=== PATIENT | female | born 1955 | race Caucasian/White ===

== ENCOUNTER → 2016-05-09 09:15 | Outpatient (CLI) | payer MEDICAID ==
[2016-02-22 14:37] VITALS: BMI 36.6
[~2016-05-09 09:15] MED LIST: ABILIFY2 MG PO; ELAVIL25 MG PO; GLUCOPHAGE500 MG PO; K-TAB10 MEQ OR; LASIX40 MG PO; LISINOPRIL5 MG PO; NORCO 10/325 TA1 TA1 PO; PRILOSEC20 MG PO; SEROQUEL25 MG; TRAZODONE HCL300 MG PO; ZOLOFT100 MG PO
[2016-05-09 12:56] LABS: APPEARANCE CLOUDY (CLEAR); BACTERIA MANY /hpf (NONE SEEN); BILIRUBIN NEGATIVE (NEGATIVE); COLOR YELLOW (YELLOW); EPITHELIAL CELLS 0-5 /hpf (0-5); GLUCOSE NEGATIVE (NEGATIVE); KETONE NEGATIVE (NEGATIVE); LEUKOCYTE ESTERASE 2+ (NEGATIVE); MUCUS <1+ /lpf (NONE SEEN); NITRITE POSITIVE (NEGATIVE); PROTEIN NEGATIVE (NEGATIVE); RED CELLS - URINE RARE /hpf (0-5); UROBILINOGEN NORMAL (NORMAL)
== END | disposition home or self-care (01) ==
LOC: D.OPS 05-08 16:00 → D.LABREF 09:15
PROVIDERS: General Practice
DX: N39.0 Urinary tract infection, site not specified (principal)

== ENCOUNTER 2016-05-18 07:46 | Outpatient (CLI) | payer MEDICAID ==
[2016-05-17 11:42] LABS: APPEARANCE HAZY (CLEAR); BACTERIA MANY /hpf (NONE SEEN); BILIRUBIN NEGATIVE (NEGATIVE); COLOR YELLOW (YELLOW); EPITHELIAL CELLS 0-5 /hpf (0-5); GLUCOSE NEGATIVE (NEGATIVE); KETONE NEGATIVE (NEGATIVE); LEUKOCYTE ESTERASE TRACE (NEGATIVE); MUCUS <1+ /lpf (NONE SEEN); NITRITE NEGATIVE (NEGATIVE); PROTEIN NEGATIVE (NEGATIVE); SPECIFIC GRAVITY 1.005 (1.005-1.020); UROBILINOGEN NORMAL (NORMAL); WHITE CELLS - URINE OCC /hpf (0-5)
[~2016-05-18] VITALS: Ht 157.5 cm; Wt 89.1 kg
[2016-05-18 08:32] VITALS: BP 147/67; Ht 157.5 cm; Wt 89.1 kg
--- NOTE | 2016-05-18 08:43 | NUR ---
0820 PATIENT IS HERE FOR IN AND OUT CATH. DONE WITH STERILE PROCEDURE AND SPECIUM SENT TO LAB FOR UA AND CULTURE. 839 PATIENT DISCHARGED HOME WITH INSTRUCTIONS TO CHECK WITH DR. CASTILLO LATER TO CONFIRM PROCEDURE FOR SATURDAY. NO DISTRESS UPON DISCHARGE NOTED.
[2016-05-18 10:34] LABS: APPEARANCE CLEAR (CLEAR); BILIRUBIN NEGATIVE (NEGATIVE); COLOR STRAW (YELLOW); GLUCOSE NEGATIVE (NEGATIVE); KETONE NEGATIVE (NEGATIVE); LEUKOCYTE ESTERASE NEGATIVE (NEGATIVE); NITRITE NEGATIVE (NEGATIVE); PROTEIN NEGATIVE (NEGATIVE); SPECIFIC GRAVITY 1.005 (1.005-1.020); UROBILINOGEN NORMAL (NORMAL)
== END 2016-05-18 08:40 ==
LOC: D.OPS 07:46
PROVIDERS: General Practice
DX: N39.0 Urinary tract infection, site not specified (principal)

== ENCOUNTER 2016-05-22 08:49 | Outpatient (CLI) | payer MEDICAID ==
[~2016-05-22] VITALS: Ht 157.5 cm; Wt 90.0 kg
--- NOTE | ~2016-05-22 | HEMODYNAMI ---
PATIENT:RUFINA HERNANDEZ MEDICAL RECORD: [id number] : 59 LOCATION:[facility] ADMISSION DATE: 05/22/16 Generatedon:05/22/201613:46 Patient name: RUFINA HERNANDEZ Patient #: [id number] SSN: : 1955 Date of study: 05/22/2016 Page: Of Hemodynamic Procedure Report Patient Data Patient Demographics Procedure consent was obtained First Name: RUFINA Gender: Female Last Name: DAVID : 1955 Middle Initial: DEONDRE Age: 61 year(s) Patient #: [id number] Race: Unknown Additional ID: [id number] Contact details Address: [address] [place] [address] State: [place] City: [place] Zip code: [address] Past Medical History Allergies Allergen Reaction Date Comments Reported Morphine 05/22/2016 Penicillins 05/22/2016 Toradol 05/22/2016 Admission Admission Data Admission Date: 05/22/2016 Admission Time: 8:49 Procedure Procedure Types Cath Procedure Peripheral Cath Diagnostic Procedure Cath Peripheral Kyphoplasty Kyphoplasty Lumbar Procedure Description Procedure Date Procedure Date: 05/22/2016 Procedure Start Time: 11:57 Procedure Staff Name Function Bernice Baumann RN Nurse Cleo López RT Cable Reeler Cleo López RT Monitor Mirna Finch RT Scrub Jabier Smallwood MD Performing Physician Procedure Data Cath Procedure Fluoroscopy Diagnostic fluoroscopy Total fluoroscopy Time: time: 11.8 min 11.8 min Diagnostic fluoroscopy Total fluoroscopy dose: dose: 519.18 mGy 519.18 mGy Procedure Medications Medication Administration Route Dosage Vancomycin I.V.P.B 1 g Hemodynamics Rest Heart Rate: 74 (bpm) Snapshots Pre Cath Intra NCS Post Cath Vital Signs Time Heart Resp SPO2 NIBP (mmHg) Rhythm Pain Sedation Rate (ipm) (%) Status Level (bpm) 11:24:26 93 136/66(99) NSR 0 (11) 10(A) , No pain 11:28:44 95 143/60(109) NSR 0 (11) 10(A) , No pain 11:34:10 96 156/68(138) NSR 0 (11) 10(A) , No pain 11:39:36 82 5 96 159/73(121) NSR 0 (11) 10(A) , No pain 11:44:00 74 19 98 149/53(91) NSR 0 (11) 10(A) , No pain 11:48:22 71 18 98 133/56(96) NSR 0 (11) 10(A) , No pain 11:52:42 76 17 98 129/53(89) NSR 0 (11) 10(A) , No pain 11:56:56 72 15 98 116/51(75) NSR 0 (11) 10(A) , No pain 12:01:16 70 9 98 112/44(73) NSR 0 (11) 10(A) , No pain 12:05:28 77 6 98 114/60(87) NSR 0 (11) 10(A) , No pain 12:09:34 73 16 98 109/58(83) NSR 0 (11) 10(A) , No pain 12:13:48 72 17 98 119/51(87) NSR 0 (11) 10(A) , No pain 12:18:06 73 17 98 119/52(84) NSR 0 (11) 10(A) , No pain 12:22:22 70 18 98 118/55(74) NSR 0 (11) 10(A) , No pain 12:26:36 70 16 98 115/55(77) NSR 0 (11) 10(A) , No pain 12:30:52 71 16 98 117/53(90) NSR 0 (11) 10(A) , No pain 12:35:06 15 98 133/63(81) NSR 0 (11) 10(A) , No pain 12:39:22 71 17 98 131/63(90) NSR 0 (11) 10(A) , No pain 12:43:42 77 18 98 135/59(90) NSR 0 (11) 10(A) , No pain 12:48:15 75 19 98 59/29(47) NSR 0 (11) 10(A) , No pain 12:53:02 76 17 98 129/65(85) NSR 0 (11) 10(A) , No pain 12:57:21 71 16 98 134/59(98) NSR 0 (11) 10(A) , No pain 13:01:42 73 18 97 126/63(96) NSR 0 (11) 10(A) , No pain 13:05:58 76 15 98 140/64(87) NSR 0 (11) 10(A) , No pain 13:10:18 76 26 98 128/58(106) NSR 0 (11) 10(A) , No pain 13:14:36 74 15 98 135/65(96) NSR 0 (11) 10(A) , No pain 13:17:44 78 26 90 140/65(99) NSR 0 (11) 10(A) , No pain Medications Time Medication Route Dose Verified Delivered Reason Notes Eff ectiveness by by 11:40:54 Vancomycin I.V.P.B 1 g per anesthesia prophylactic anesthesia Procedure Log Time Note 11:04:15 Time tracking: Regular hours 11:04:33 Use device set IR Diagnostic 11:04:35 Sterile Angiographic Pack opened to sterile field. 11:04:36 Bag Decanter opened to sterile field. 11:04:55 Plan of Care:Hemodynamics will remain stable., Cardiac rhythm will remain stable., Comfort level will be maintained., Respiratory function will remain adequate., Patient/ family verbilizes understanding of procedure., Procedure tolerated without complication., Recovers from procedure without complications.. 11:05:02 Patient received from Outpatients to IR Alert and oriented. 11:05:08 Correct patient and procedure confirmed by team. 11:05:15 Signed procedure consent form obtained from patient. 11:05:16 - 11:05:23 H&P Date Dictated: 05/22/2016 Within 30 days and on chart.. 11:05:25 Pre-op teaching completed and patient verbalized understanding. 11:05:25 Pre-procedure instructions explained to patient. 11:05:27 Family in waiting room. 11:05:29 Patient NPO since Midnight. 11:05:33 Is the patient allergic to Iodine/contrast media? No. 11:05:35 Is patient on blood thinner?No 11:05:38 Patient diabetic? No. 11::40 ----Pre-sedation anethsthesia assessment.---- 11:05:40 - 11:05:44 Previous problem with sedation/anesthesia? No ? 11:05:48 Snore? Yes 11:05:53 Sleep apnea? No 11:06:01 Deviated septum? No 11:06:06 Opens mouth fully? Yes 11:06:07 Sticks out tongue? Yes 11:06:12 Airway obstruction? Yes copd 11:06:20 Dentures? Yes secured 11:06:34 IV patent on arrival in right forearm with 0.9% NaCl at [facility]. 11:06:57 Patient allergic to Morphine 11:07:08 Patient allergic to Penicillins 11:07:24 Patient allergic to Toradol 11:08:20 Lumbar area was prepped with dura-prep and draped in sterile fashion 11:08:28 Thoracic area was prepped with dura-prep and draped in sterile fashion 11:10:12 See anesthesia records for all vs, loc, O2 and medications given . 11:22:03 Vital chart was started 11:31:45 Dr Smallwood in. Talking with patient. 11:40:37 Anesthesia arrived. Talking with patient for assessment. 11:40:54 Vancomycin 1 g I.V.P.B was given by anesthesia; prophylactic; 11:41:07 Kyphon INTRO NEEDLE TROCAR opened to sterile field. 11:41:08 Kyphon BONE BX DEVICE SZ2 opened to sterile field. 11:41:09 Kyphon EDUCATION PROFESSIONAL KIT opened to sterile field. 11:41:11 KYPHON LIAT EXPRESS 15/2 CDS SYSTEM opened to sterile field. 11:44:37 Patient transferred to table and manuela hugger initiated. Warm blankets applied. 11:45:23 ECG and BP/O2 sat monitors applied to patient. 11:45:24 Baseline sample Acquired. 11:45:26 Full Disclosure recording started 11:45:27 - :45:56 Alarms reviewed by Bobby Mills :57 Sharps counted by scrub and verified by Chelly 11:45:58 - 11:53:51 Physician arrived 11:54:41 Physical assessment completed. ASA score P 4 - A patient with severe systemic disease that is a constant threat to life as per Jabier Smallwood MD. 11:54:47 Sedation plan: TIVA Propofol 11:55:00 --------ALL STOP TIME OUT------ 11:55:01 Final Timeout: patient, procedure, and site verified with staff and physician. All members of the team are in agreement. 11:57:07 Procedure started. 12:01:34 Jamshidi needle introduced. 12:12:15 Bone bx needle placed. 12:21:17 Kyphoplasty balloon introduced. 12:57:43 Cement introduced to vertebral body. 13:12:06 Procedure ended.(Physican Out) 13:18:29 Fluoroscopy time 11.80 minutes. 13:18:36 Fluoroscopy dose: 519.18 mGy 13:18:36 Flurop Dose total: 519.18 13:18:43 Sharps counted by scrub and verified by Chelly 13:18:45 Procedure and supply charges have been captured, reviewed, submitted an d are correct. 13:18:56 End room use (Document Last) 13:21:36 Vital chart was stopped 13:21:40 Full Disclosure recording stopped Device Usage Item Name Manufacture Quantity Catalog Hospital Part Current [facility] l Lot# / Number Charge Number Stock Stock Serial# Code Sterile Cardinal 1 [id number] 5 Angiographic Health Pack Bag Decanter Microtek 1 [id number] 5 [employer] Kyphon INTRO Medtronic 1 [id number] [id number] 5 NEEDLE TROCAR Kyphon BONE Medtronic 1 [id number] 259406 [id number] 5 BX DEVICE SZ2 Kyphon Medtronic 1 [id number] [id number] 5 EDUCATION PROFESSIONAL KIT KYPHON LIAT Medtronic 1 [id number] [id number] 5 EXPRESS 16/05 CDS SYSTEM Signature Audit Hagerman Stage Time Signature Unsigned Intra-Procedure 05/22/2016 Cleo Gilbert RT 1:21:33 PM RT(R) (R) (CV) 05/22/2016 1:44:18 PM Intra-Procedure 05/22/2016 Cleo López 1:46:56 PM RT(R) Signatures Monitor : Cleo López RT Signature : Date : Time : [id number] [place] [address]
[2016-05-22 10:52] VITALS: BP 121/53; Ht 157.5 cm; Wt 90.0 kg
[2016-05-22 10:55] LABS: BASOPHILS 0.4 % (0.0-2.0); EOSINOPHILS 1.1 % (0-7); HEMATOCRIT 41.8 % (36.0-48.0); IMMATURE GRANULOCYTES 0.4 % (0-5); LYMPHOCYTES 30.2 % (15-50); MCH 28.6 pg (26.0-34.0); MCHC 33.5 g/dL (31.0-37.0); MCV 85.5 fL (80.0-100.0); MEAN PLATELET VOLUME 8.8 fL (7.4-10.4); MONOCYTES 5.3 % (2-11); NEUTROPHILS 62.6 % (40-80); PLATELET COUNT 279 10x3/uL (130-400); RBC 4.89 10x6/uL (4.00-5.40); RDW 14.3 % (11.5-14.5); WBC 11.3 10x3/uL (4.8-10.8)
[2016-05-22 11:08] LABS: CALC OSMOLALITY 278 mosm/kg (275-300); CALCIUM 9.1 mg/dL (8.5-10.1); CHLORIDE - SERUM 101 mmol/L (98-107); CREATININE - SERUM 0.5 mg/dL (0.6-1.3); GLUCOSE 82 mg/dL (74-106); POTASSIUM - SERUM 3.6 mmol/L (3.5-5.1); SODIUM 141 mmol/L (136-145); UREA NITROGEN 10 mg/dL (7-18); eGFR NON AFRICAN AMERICAN > 90 mL/min (90-120)
[2016-05-22 11:09] LABS: APTT 29.9 SECONDS (22.8-39.4); INR 1.02 (0.85-1.17); PROTIME 13.3 SECONDS (11.6-15.0)
== END 2016-05-22 16:05 | disposition home or self-care (01) ==
LOC: D.OPS 08:49 → D.SP 11:30 → D.OPS 11:30
PROVIDERS: General Practice
DX: S22.088A Other fracture of T11-T12 vertebra, initial encounter for closed fracture (principal); S32.028A Other fracture of second lumbar vertebra, initial encounter for closed fracture

== ENCOUNTER → 2016-07-31 16:59 | Outpatient (CLI) | payer MEDICAID ==
[2016-05-22 10:52] VITALS: BMI 36.3
== END | disposition home or self-care (01) ==
LOC: D.MAMMO 13:00
DX: Z12.31 Encounter for screening mammogram for malignant neoplasm of breast (principal)

== ENCOUNTER → 2017-02-06 10:34 | Outpatient (CLI) | payer MEDICAID ==
[2016-05-22 10:52] VITALS: BMI 36.3
[2017-02-06 11:16] LABS: BASOPHILS 0.2 % (0-2); EOSINOPHILS 0.8 % (0-7); HEMATOCRIT 45.4 % (36.0-48.0); HEMOGLOBIN 15.5 g/dL (12-16); IMMATURE GRANULOCYTES 0.6 % (0-5); LYMPHOCYTES 25.1 % (15-50); MCH 30.3 pg (26.0-34.0); MCHC 34.1 g/dL (31.0-37.0); MCV 88.8 fL (80.0-100.0); MEAN PLATELET VOLUME 8.9 fL (7.4-10.4); MONOCYTES 5.5 % (2-11); NEUTROPHILS 67.8 % (40-80); PLATELET COUNT 238 10x3/uL (130-400); RBC 5.11 10x6/uL (4.00-5.40); RDW 13.9 % (11.5-14.5); WBC 10.8 10x3/uL (4.8-10.8)
[2017-02-06 11:29] LABS: ANION GAP 14.5 mmol/L (8-16); CALCIUM 9.2 mg/dL (8.5-10.1); CARBON DIOXIDE 26.2 mmol/L (21.0-32.0); CREATININE - SERUM 0.9 mg/dL (0.6-1.3); POTASSIUM - SERUM 3.7 mmol/L (3.5-5.1)
[2017-02-06 12:06] LABS: APPEARANCE CLEAR (CLEAR); BILIRUBIN NEGATIVE (NEGATIVE); COLOR YELLOW (YELLOW); GLUCOSE NEGATIVE (NEGATIVE); KETONE NEGATIVE (NEGATIVE); NITRITE NEGATIVE (NEGATIVE); PROTEIN NEGATIVE (NEGATIVE); UROBILINOGEN NORMAL (NORMAL)
[2017-02-06 12:07] LABS: BACTERIA MANY /hpf (NONE SEEN); EPITHELIAL CELLS OCC /hpf (0-5); MUCUS <1+ /lpf (NONE SEEN); RED CELLS - URINE RARE /hpf (0-5); WHITE CELLS - URINE 0-5 /hpf (0-5)
== END | disposition home or self-care (01) ==
LOC: D.LABREF 10:34 → D.LAB 10:34
DX: R35.0 Frequency of micturition (principal); N32.81 Overactive bladder

== ENCOUNTER 2018-01-17 06:11 | Day surgery (SDC) | payer MEDICAID ==
[~2018-01-17] VITALS: Ht 157.5 cm; Wt 87.1 kg
--- NOTE | ~2018-01-17 | OP ---
PATIENT NAME: RUFINA HERNANDEZ MEDICAL RECORD: [id number] :59 [facility] DATE: SURGEON: FARSHAD JAQUEZ MD DATE OF OPERATION: 01/17/2018 PREOPERATIVE DIAGNOSIS: Possible right base of tongue lesion. POSTOPERATIVE DIAGNOSIS: Possible right base of tongue lesion. PROCEDURE: Direct laryngoscopy and biopsy of the right base of the tongue. SURGEON: Farshda Jaquez MD ANESTHESIA: General orotracheal. BLOOD LOSS: Less than 5 cc. SPECIMENS: Multiple biopsies of the right base of tongue. COMPLICATIONS: None. DISPOSITION: Recovery stable. FINDINGS: A little bit of a friable area at the right base of the tongue adjacent to the palatoglossal arch, but nothing palpable. No obvious lesion. Multiple biopsies were taken both superficially and deep around the area with 4 mm upbiting cup forceps. DESCRIPTION OF PROCEDURE: She was brought to the operating room and placed in supine position, sedated and intubated by anesthesia. The eyes were taped. The table was turned 90 degrees. Head drapes applied and she was positioned for laryngoscopy. Plastic upper tooth guard was placed. She was edentulous. Using a headlight, the oral cavity, tongue, floor of the mouth, palate were all examined visually and palpated thoroughly. As aware of the area that was tender on palpation in the clinic and that area nothing was abnormal palpably. Then the Kleinsasser J laryngoscope was brought in to examine the entire hypopharynx, posterior pharyngeal wall, lateral pharyngeal vergara, the entire base of tongue, epiglottis, vallecula, both piriforms, supraglottic larynx, the cords themselves, interarytenoid area, postcricoid area, all thoroughly examined. No abnormalities. No lesions were seen. The right base of the tongue area is a little bit friable adjacent to the attachment of the palatoglossal arch. I examined that area with the scope and then again with a headlight and palpation. She was easy to expose because she is edentulous, very easy to get in that area. I took multiple upbiting 4mm cup biopsies around that area removing the entire friable area, but taking some deeper biopsies and taking some directed biopsies in the remainder of the base of tongue. There was some bleeding, but it was not too much. With that completed, no other lesions were identified. Palpation of the neck revealed no masses, no adenopathy when she was sedated. The plastic tooth guard was removed. An Afrin pledget was placed for a few minutes on the right base of the tongue and that was removed. She was awakened, extubated, and transported to recovery in good condition. No complications. TRANSINT:[id number] Voice Confirmation ID: [id number] DOCUMENT ID: [id number] OPERATIVE REPORT [id number] RUFINA HERNANDEZ ERIC MD at 1821 CC: [id number] DICTATION DATE: 01/17/18 1104 INSPECTOR WIRE PRODUCTS: 01/17/18 1122 [facility] [place] 01/17/18 [id number] [place] [address]
--- NOTE | ~2018-01-17 | HP ---
PATIENT: RADHA HERNANDEZ MEDICAL RECORD: [id number] ACCOUNT: [id number] LOCATION:D.OPS : 59 ADMISSION DATE: 01/17/18 PCP: HISTORY AND PHYSICAL EXAMINATION HISTORY OF PRESENT ILLNESS: Radha is a 62 years old. She has been having problems with pain, right side of the base of the tongue and ear pain. She has possible right base of tongue lesion. She is being admitted for direct laryngoscopy and biopsy. PAST MEDICAL HISTORY: Includes diabetes, hypertension, coronary artery disease, and reflux. PAST SURGICAL HISTORY: Includes tonsillectomy, facial reconstruction, carpal tunnel in both hands, hysterectomy, appendectomy, cholecystectomy, Graciela fundoplication, rotator cuff repair, and bladder pacemaker. CURRENT MEDICATIONS: Include Lasix, gabapentin, Zoloft, metformin, lisinopril, trazodone. ALLERGIES: Include TORADOL, PENICILLIN, LYRICA, SULFA. PHYSICAL EXAMINATION: GENERAL: She is healthy-appearing, normal voice. FACE: Normal, symmetric, no lesions. EYES: Sclerae and conjunctivae are normal. EARS: Canals and TMs are normal. NOSE: No masses, polyps or drainage. ORAL CAVITY AND OROPHARYNX: She has an erythematous area in the right base of tongue near the palatoglossal arch, it is tender. Pain radiates to her ear. NECK: No masses, no adenopathy. CHEST: Clear. CARDIOVASCULAR: Regular rate and rhythm, no murmur. EXTREMITIES: Normal. Flexible laryngoscopy was negative. IMPRESSION: Possible right base of tongue lesion. PLAN: Direct laryngoscopy, biopsy the right base of the tongue and any other suspicious areas. TRANSINT:[id number] Voice Confirmation ID: [id number] DOCUMENT ID: [id number] LISA BUSTOS MD at 1224 CC: [id number] DICTATION DATE: 01/16/18 1035 MANUFACTURING ENGINEERING PROFESSOR: 01/16/18 [id number] [place] [address]
[~2018-01-17 06:11] MED LIST changes: +FUROSEMIDE40 MG PO; +NEURONTIN 300300 MG PO; +NORCO 10-325 TA1 TAB PO; +POTASSIUM99 M1 PO; +PRINZIDE 20/12.1 TA1 PO; +RANITIDINE HCL150 M1 PO
[2018-01-17 06:39] LABS: HEMATOCRIT 41.8 % (36.0-48.0); MCH 29.1 pg (26.0-34.0); MCHC 33.5 g/dL (31.0-37.0); MCV 86.9 fL (80.0-100.0); MEAN PLATELET VOLUME 8.8 fL (7.4-10.4); RBC 4.81 10x6/uL (4.00-5.40); RDW 15.1 % (11.5-14.5); WBC 10.9 10x3/uL (4.8-10.8)
[2018-01-17 06:57] LABS: CALC OSMOLALITY 280 mosm/kg (275-300); CALCIUM 8.9 mg/dL (8.5-10.1); CARBON DIOXIDE 25.9 mmol/L (21.0-32.0); CHLORIDE - SERUM 102 mmol/L (98-107); CREATININE - SERUM 0.6 mg/dL (0.6-1.3); GLUCOSE 111 mg/dL (74-106); POTASSIUM - SERUM 3.7 mmol/L (3.5-5.1); SODIUM 140 mmol/L (136-145); UREA NITROGEN 14 mg/dL (7-18); eGFR NON AFRICAN AMERICAN > 90 mL/min (90-120)
[2018-01-17 08:33] VITALS: BP 136/33; Ht 157.5 cm; Wt 87.1 kg
== END 2018-01-17 13:10 | disposition home or self-care (01) ==
LOC: D.OPS 06:11 → D.PAN 09:00 → D.OPS 09:15
PROVIDERS: Anesthesiology
DX: K14.9 Disease of tongue, unspecified (principal); E11.9 Type 2 diabetes mellitus without complications; I10 Essential (primary) hypertension; I25.10 Atherosclerotic heart disease of native coronary artery without angina pectoris; K21.9 Gastro-esophageal reflux disease without esophagitis; Z79.84 Long term (current) use of oral hypoglycemic drugs; Z79.899 Other long term (current) drug therapy; Z88.0 Allergy status to penicillin; Z88.2 Allergy status to sulfonamides; Z88.8 Allergy status to other drugs, medicaments and biological substances; Z01.812 Encounter for preprocedural laboratory examination

== ENCOUNTER → 2018-03-27 10:54 | Outpatient (CLI) | payer MEDICAID ==
[2018-01-17 08:33] VITALS: BMI 35.2
== END | disposition home or self-care (01) ==
LOC: D.RAD 10:54
DX: J34.89 Other specified disorders of nose and nasal sinuses (principal)

== ENCOUNTER 2018-05-14 08:57 | Outpatient (CLI) | payer MEDICAID ==
[~2018-05-14] VITALS: Ht 157.5 cm; Wt 96.4 kg
--- NOTE | ~2018-05-14 | HEMODYNAMI ---
PATIENT:RUFINA HERNANDEZ MEDICAL RECORD: [id number] : 59 LOCATION:[facility] ADMISSION DATE: 05/14/18 Generatedon:05/14/201812:58 Patient name: RUFINA HERNANDEZ Patient #: [id number] SSN: : 1955 Date of study: 05/14/2018 Page: Of Hemodynamic Procedure Report Patient Data Patient Demographics Procedure consent was obtained First Name: RUFINA Gender: Female Last Name: DAVID : 1955 Middle Initial: DEONDRE Age: 63 year(s) Patient #: [id number] Race: Unknown Additional ID: [id number] Contact details [address]: [address] [place] [address] State: [place] City: [place] Zip code: [address] Past Medical History Allergies Allergen Reaction Date Comments Reported Morphine 05/22/2016 Penicillins 05/22/2016 Toradol 05/22/2016 Other allergy 05/14/2018 Lyrica, Morphine, PCN, Toradol Admission Admission Data Admission Date: 05/14/2018 Admission Time: 8:57 Admit Source: Other Height (in.): 62 BSA: 1.96 (m2) Height (cm.): 157.48 BMI: 38.85 (kg/m2) Weight (lbs.): 212.44 Weight (kg.): 96.36 Lab Results Lab Result Date: 05/14/2018 Lab Result Time: 9:30 Biochemistry Name Units Result Min Max BUN mg/dl 10 --(-*--)-- 7 18 Creatinine mg/dl 0.6 --(*---)-- 0.6 1.3 CBC Name Units Result Min Max Hematocrit % 39.3 -*(----)-- 42 54 Hemoglobin g/dl 13.1 -*(----)-- 13.5 17.5 Procedure Procedure Types Cath Procedure Diagnostic Procedure [facility] w/Coronaries FFR/IVUS Intra-Coronary IVUS Initial Intra-Coronary IVUS Additional PCI Procedure Coronary Stent Coronary Stent Initial x2 Procedure Description Procedure Date Procedure Date: 05/14/2018 Procedure Start Time: 12:29 Procedure End Time: 12:57 Procedure Staff Name Function Andrea Palma MD Performing Physician Jamin Eng RT Monitor Faina Brock RT Scrub Elliot Roth RN Nurse Procedure Data Cath Procedure Fluoroscopy Diagnostic fluoroscopy Total fluoroscopy Time: 7.3 time: 7.3 min min Diagnostic fluoroscopy Total fluoroscopy dose: dose: 1713 mGy 1713 mGy Contrast Material Contrast Material Type Amount (ml) Isovue 300 173 Entry Location Entry Primary Successful Side Size Upsize Upsize Entry Closure [place] ccessful Closure Location (Fr) 1 (Fr) 2 (Fr) Remarks Device Remarks Femoral Right 6 Fr Mechanical artery Short Compression Estimated blood loss: 10 ml Diagnostic catheters Device Type Used For End Catheter Placement DIAGNOSTIC Pringle 110cm 5 Procedure Fr catheter ([id number]) Procedure Complications No complications Procedure Medications Medication Administration Route Dosage 0.9% NaCl I.V. 100 ml/hr Oxygen etCO2 Nasal cannula 2 l/min Heparin Flush Bag added to field 2 bags (1000units/500ml NS) Lidocaine 2% added to field 20 Radial Cocktail added to field 1 syringe (Verapomil 2mg/Nitro 400mcg/Heparin 1500units) Versed I.V. 2 mg Fentanyl I.V. 100 mcg Radial Cocktail I.A. 1 syringe (Verapomil 2mg/Nitro 400mcg/Heparin 1500units) Versed I.V. 2 mg Fentanyl I.V. 100 mcg Heparin Bolus I.V. 4000 units Integrilin (Bolus I.V. 8.5 ml 2mg/ml) Integrilin (Bolus wasted 1.5 ml 2mg/ml) Versed I.V. 2 mg Plavix P.O. 600 mg Fentanyl I.V. 100 mcg Hemodynamics Rest BSA: 1.96 (m2) HGB: 13.1 (g/dl) O2 Consumption: Estimated: 185.68 (ml/min) O2 Co nsumption indexed: Estimated:94.73 (ml/min/m) Heart Rate: 71 (bpm) Pressure Samples Time Site Value (mmHg) Purpose Heart Use Rate(bpm) 12:30 LV 104/25,36 Snapshot 74 Snapshots Pre Cath Intra NCS Post Cath Vital Signs Time Heart Resp SPO2 etCO2 NIBP (mmHg) Rhythm Pain Sedation Rate (ipm) (%) (mmHg) Status Level (bpm) 12:05:46 77 17 94 0 149/76(111) NSR 0 (11) 10(A) , No pain 12:10:00 70 19 89 39.2 155/68(108) NSR 0 (11) 10(A) , No pain 12:14:18 71 15 93 42.2 136/63(85) NSR 0 (11) 10(A) , No pain 12:18:32 69 14 93 43 135/69(101) NSR 0 (11) 10(A) , No pain 12:22:48 66 14 96 42.2 127/62(98) NSR 0 (11) 10(A) , No pain 12:27:02 68 13 95 46 134/63(92) NSR 0 (11) 10(A) , No pain 12:31:04 77 19 92 43 107/57(80) NSR 0 (11) 10(A) , No pain 12:36:01 75 13 94 44.5 134/63(86) NSR 0 (11) 10(A) , No pain 12:40:17 78 12 93 46 136/63(100) NSR 0 (11) 10(A) , No pain 12:44:33 82 13 95 39.9 134/64(100) NSR 0 (11) 10(A) , No pain 12:48:47 78 16 46.7 140/66(100) NSR 0 (11) 10(A) , No pain 12:53:07 74 16 42.2 139/66(107) NSR 0 (11) 10(A) , No pain 12:57:23 71 10 48.2 137/68(92) NSR 0 (11) 10(A) , No pain Medications Time Medication Route Dose Verified Delivered Reason Not es Effectiveness by by 12:10:17 0.9% NaCl I.V. 100 Elliot Elliot Per physician ml/hr Ira Roth RN RN 12:10:27 Oxygen etCO2 2 l/min Elliot Elliot for low 02 sats Nasal Ira Roth cannula RN RN 12:10:41 Heparin Flush added 2 bags Elliot Elliot used for Bag to Ira Roth procedure (1000units/500ml field RN RN NS) 12:10:51 Lidocaine 2% added 20ml Elliot Elliot for local to vial Lorigan Lorusama anesthetic RN RN 12:11:18 Radial Cocktail added 1 Elliot Elliot used for (Verapomil to syringe Ira Roth procedure 2mg/Nitro RN RN 400mcg/Heparin 1500units) 12:24:00 Versed I.V. 2 mg Elliot Elliot for sedation Ira Roth RN RN 12:24:08 Fentanyl I.V. 100 mcg Elliot Elliot for sedation Ira Roth RN RN 12:30:50 Radial Cocktail I.A. 1 Elliot Andrea for (Verapomil syringe Lorigan Tauth MD vasodilation 2mg/Nitro RN 400mcg/Heparin 1500units) 12:30:58 Versed I.V. 2 mg Elliot Elliot for sedation Ira Roth RN RN 12:31:05 Fentanyl I.V. 100 mcg Elliot Elliot for sedation Ira Roth RN RN 12:35:20 Heparin Bolus I.V. 4000 Elliot Elliot for units Ira Roth anticoagulation RN RN 12:37:21 Integrilin I.V. 8.5 ml Elliot Elliot for (Bolus 2mg/ml) Ira Roth antiplatelet RN RN therapy 12:37:31 Integrilin wasted 1.5 ml Elliot Elliot to sharp's (Bolus 2mg/ml) Ira Roth RN RN 12:41:55 Versed I.V. 2 mg Elliot Elliot for sedation Ira Roth RN RN 12:48:15 Plavix P.O. 600 mg Elliot Elliot for Ira Roth antiplatelet RN RN therapy 12:51:17 Fentanyl I.V. 100 mcg Elliot Elliot for sedation Ira Roth RN apprentice photographer Log Time Note 11:51:20 Informed consent obtained and on chart 11:51:23 Admit Source: Other 11:51:36 Diagnostic Cath status Elective 11:51:39 Time tracking: Regular hours (M-F 7:00 - 5:00) 11:51:43 Plan of Care:Hemodynamics will remain stable., Cardiac rhythm will remain stable., Comfort level will be maintained., Respiratory function will remain adequate., Patient/ family verbilizes understanding of procedure., Procedure tolerated without complication., Recovers from procedure without complications.. 11:51:53 H&P Date Dictated: 05/12/2018 Within 30 days and on chart., H&P Addendum completed by physician on day of procedure. (MUST COMPLETE FOR ALL OUTPATIENTS). ::23 Lab Result : BUN 10 mg/dl : Lab Result : Hemoglobin 13.1 g/dl : Lab Result : Creatinine 0.6 mg/dl : Lab Result : Hematocrit 39.3 % : Lab results completed and on chart. 11:52:33 Patient Weight : 212.44 lbs 11:52:39 Patient Height : 62 inches 11:55:45 Faina Brock RT(R) sent for patient. Start room use. 12:00:16 Patient received from Pre/Post Procedure Room to CCL 2 Alert and oriented. Tansferred to table in Supine position. 12:00:17 Warm blankets applied, and manuela hugger turned on for patient comfort. 12:00:18 Correct patient and procedure confirmed by team. 12:00:25 Pre-procedure instructions explained to patient. 12:00:28 Pre-op teaching completed and patient verbalized understanding. 12:00:30 Family in waiting room. 12:00:31 Patient NPO since Midnight. 12:10:17 0.9% NaCl 100 ml/hr I.V. was administered by Elliot Roth RN; Per physician; 12:10:27 Oxygen 2 l/min etCO2 Nasal cannula was administered by Elliot Roth RN; for low 02 sats; 12:10:41 Heparin Flush Bag (1000units/500ml NS) 2 bags added to field was administered by Elliot Roth RN; used for procedure; 12::51 Lidocaine 2% 20ml vial added to field was administered by Elliot Roth RN; for local anesthetic; 12:11:18 Radial Cocktail (Verapomil 2mg/Nitro 400mcg/Heparin 1500units) 1 syringe added to field was administered by Elliot Roth RN; used for procedure; 12:19:26 Patient allergic to Other allergyLyrica, Morphine, PCN, Toradol 12:19:29 ECG and BP/O2 sat monitors applied to patient. 12:19:36 Baseline sample Acquired. 12:19:39 Rhythm: sinus rhythm 12:19:40 Full Disclosure recording started 12:19:43 Is the patient allergic to Iodine/contrast media? No. 12:19:48 Is patient on blood thinner?No 12:19:49 Patient diabetic? No. 12:19:50 If diabetic: On Metformin? Yes 12:19:54 If on Metformin: Last Dose? 05/12/2018 12:19:58 Previous problem with sedation/anesthesia? No ? 12:20:33 Snore? No 12:20:34 Sleep apnea? Yes 12:20:34 Deviated septum? No 12:20:35 Opens mouth fully? Yes 12:20:40 Sticks out tongue? Yes 12:20:53 Airway obstruction? Yes COPD, CHRONIC BRONCHITIS. 12:20:56 Dentures? No ? 12:21:01 Modified Mega's test Ulnar < 7 seconds 12:21:03 Patient pain scale 0/10 ?. 12:21:07 IV patent on arrival in left forearm with 0.9% NaCl at [facility]. 12:21:11 Right Radial & Right Groin area was prepped with chlora-prep and draped in sterile fashion 12:21:12 Alarms reviewed by R. N. 12:21:13 Sharps counted by scrub and verified by R.N. 12:21:18 Zero performed for pressure channel P1 12:21:30 Use device set Radial Dx or PCI 12:21:30 ACIST Syringe (42979) opened to sterile field. 12:21:31 Medline Cath Pack ([id number]) opened to sterile field. 12:21:31 Bag Decanter (2002) opened to sterile field. 12:21:32 ACIST Hand Control (96214) opened to sterile field. 12:21:32 ACIST Manifold (09920) opened to sterile field. 12:21:33 Tegaderm 4 x 4 (1626W) opened to sterile field. 12:21:33 MBrace Wrist Support ([id number]) opened to sterile field. 12:21:34 SHEATH 6FR Slender (13-1060) opened to sterile field. 12:21:35 DIAGNOSTIC WIRE .035 260cm J wire (992074) opened to sterile field. 12:21:44 Physician arrived 12:21:44 --------ALL STOP TIME OUT------ 12:21:45 Final Timeout: patient, procedure, and site verified with staff and physician. All members of the team are in agreement. 12:21:47 Right Radial & Right Groin site verified by team. 12:21:51 Fire Safety Assessment: A--An alcohol-based skin anteseptic being used preoperatively., C--Open oxygen or nitrous oxide is being used., D--An ESU, laser, or fiber-optic light is being used. 12:21:56 Physical assessment completed. ASA score P 2 - A patient with mild systemic disease as per Andrea Palma MD. 12::58 Sedation plan: IV Moderate Sedation Medication:Versed, Fentanyl 12:24:00 Versed 2 mg I.V. was administered by Elliot Roth RN; for sedation; 12:24:08 Fentanyl 100 mcg I.V. was administered by Elliot Roth RN; for sedation; 12:29:16 Procedure started. 12:29:28 Local anesthetic to right radial artery with Lidocaine 2% by Andrea Palma MD.INITIAL ACCESS ONLY 12:29:36 A 6 Fr Short sheath was inserted into the Right Femoral artery 12:29:50 A DIAGNOSTIC Pringle 110cm 5 Fr catheter ([id number]) was advanced over the wire and used for Procedure. 12::58 Zero performed for pressure channel P1 12:30:13 LV gram done using WEEKS 12:30:15 Injector settings: Ml/sec: 5, Volume: 15, 12:30:39 EF : 60 % 12:30:41 LV hemodynamics recorded. 12:30:50 Radial Cocktail (Verapomil 2mg/Nitro 400mcg/Heparin 1500units) 1 syringe I.A. was administered by Andrea Palma MD; for vasodilation; 12:30:54 RCA angiography performed. 12::58 Versed 2 mg I.V. was administered by Elliot Roth RN; for sedation; 12:31:05 Fentanyl 100 mcg I.V. was administered by Elliot Roth RN; for sedation; 12:31:10 CHOICE PT Extra Support 182cm wire ([id number]) opened to sterile field. 12:31:10 INFLATOR Merit BasixCompak (FT0419) opened to sterile field. 12:32:31 Catheter exchanged over wire. 12:32:39 GUIDE 6FR EBU 3.0 catheter ([id number]) opened to sterile field. 12:32:47 6 Fr EBU 3.0 guide catheter was inserted over the wire 12:32:56 LCA angiography performed. 12:34:26 [place] Eag[place] IVUS Catheter (03934G) opened to sterile field. 12:34:50 CHOICE PT ES wire advanced. 12:35:20 Heparin Bolus 4000 units I.V. was administered by Elliot Roth RN; for anticoagulation; 12:35:33 Wire advanced across lesion. 12:35:39 IVUS catheter advanced over wire. 12:35:40 IVUS pass to LAD lesion performed. 12:37:12 IVUS catheter removed over wire. 12:37:17 Wire redirected to CX. 12:37:21 Integrilin (Bolus 2mg/ml) 8.5 ml I.V. was administered by Elliot Roth RN; for antiplatelet therapy; 12:37:23 IVUS catheter advanced over wire. 12:37:27 IVUS pass to Circ lesion performed. 12:37:31 Integrilin (Bolus 2mg/ml) 1.5 ml wasted was administered by Elliot Roth RN; to sharp's; 12:39:43 IVUS catheter removed over wire. 12:39:49 GUIDE 6FR AR 1.0 SH catheter ([id number]) opened to sterile field. 12:40:25 Place stent Inflation Number: 1 A INTEGRITY RX 3.5 x 12 stent ([id number]) was prepped and advanced across the Mid CX. The stent was deployed at 13 GABE for 0:10 (min:sec). 12:40:33 Stent catheter was removed intact over wire. 12:40:35 Wire removed. 12:40:37 Guide catheter removed. 12:40:45 6 Fr AR 1 SH guide catheter was inserted over the wire 12:41:55 Versed 2 mg I.V. was administered by Elliot Roth RN; for sedation; 12:42:27 ? wire advanced. 12:42:35 CHOICE PT ES wire advanced. 12:42:36 Wire advanced across lesion. 12:44:40 Place stent Inflation Number: 1 A INTEGRITY RX 3.0 x 15 stent ([id number]) was prepped and advanced across the Mid RCA. The stent was deployed at 15 GABE for 0:10 (min:sec). 12:44:55 Stent catheter was removed intact over wire. 12:46:22 Place stent Inflation Number: 1 A INTEGRITY RX 3.5 x 18 stent ([id number]) was prepped and advanced across the Prox RCA. The stent was deployed at 13 GABE for 0:10 (min:sec). 12:46:52 Stent catheter was removed intact over wire. 12:46:52 Wire removed. 12:46:54 Guide catheter removed. 12:47:01 ZEPHYR REGULAR TR BAND NO COST(606373) opened to sterile field. 12:47:08 Sheath removed intact; hemostasis achieved with Mechanical Compression to the Right Femoral artery. 12:47:10 Procedure ended.(Physican Out) 12:48:15 Plavix 600 mg P.O. was administered by Elliot Roth RN; for antiplatelet therapy; 12:50:31 Fluoroscopy time 07.30 minutes. 12:50:35 Fluoroscopy dose: 1713 mGy 12:50:35 Flurop Dose total: 1713 12:50:39 Contrast amount:Isovue 300 173ml. 12:50:40 Sharps counted by scrub and verified by R.N. 12:51:17 Fentanyl 100 mcg I.V. was administered by Elliot Roth RN; for sedation; 12:53:46 TR band inflated with 10cc of air. 12:53:48 Insertion/operative site no bleeding no hematoma. 12:55:07 Post right radial artery:stable, soft, clean and dry 12:55:11 Post Procedure Pulses reassessed and unchanged 12:55:13 Post-procedure physical assessment completed. ASA score P 2 - A patient with mild systemic disease as per Andrea Palma MD. 12:55:15 Post procedure rhythm: unchanged. 12:55:17 Estimated blood loss: 10 ml 12:55:18 Post procedure instruction explained to patient.Patient verbalizes understanding. 12:55:18 Patient needs reinforcement of post procedure teaching. 12:56:07 Procedure type changed to Cath procedure, Diagnostic procedure, LHC, LHC w/Coronaries, FFR/IVUS, Intra-Coronary IVUS Initial, Intra-Coronary IVUS Additional, PCI procedure, Coronary Stent, Coronary Stent Initial x2 12:57:12 Procedure and supply charges have been captured, reviewed, submitted and are correct. 12:57:14 Procedure Complication : No complications 12:57:16 Vital chart was stopped 12:57:17 See physician's report for complete and final results. 12:57:18 Report given to Pre/Post Procedure Room. 12:57:20 Patient transfered to Pre/Post Procedure Room with Stretcher. 12:57:23 Procedure ended. 12:57:23 Full Disclosure recording stopped 12:57:35 End room use (Document Last) Intervention Summary Intervention Notes Time ActionType Lesion and Equipment Action# Pressure Duration Attributes Used 12:40:25 Place stent Mid CX INTEGRITY RX 1 13 00:10 3.5 x 12 stent ([id number]) 12:44:40 Place stent Mid RCA INTEGRITY RX 1 15 00:10 3.0 x 15 stent ([id number]) 12:46:22 Place stent Prox RCA INTEGRITY RX 1 13 00:10 3.5 x 18 stent ([id number]) Device Usage Item Name Manufacture Quantity Catalog Number Hospital Part Current Mini mal Lot# / Charge Number Stock Stock Serial# Code ACIST Acist 1 13330 807227 813339 571263 20 Syringe Medical (13973) Systems Inc Medline Cath Medline 1 [id number] 698565 10142 645438 5 Pack ([id number]) Bag Decanter Microtek 1 2002S 935949 60492 677005 5 (2002S) Medical Inc. ACIST Hand Acist 1 64203 966277 686335 594872 5 Control Medical (72931) Systems Inc ACIST Acist 1 96857 378594 377566 036971 5 Manifold Medical (58457) Systems Inc Tegaderm 4 x 3M 1 1626W 536652 404415 862381 5 4 (1626W) MBrace Wrist Advanced 1 140-0250-00 830783 13871 222954 5 Support Vascular (139009801) Dynamics SHEATH 6FR Terumo 1 [id number] 739505 780625 727186 5 Slender (80-1060) DIAGNOSTIC [place] 1 866268 545953 050193 717589 30 WIRE .035 260cm J wire (804004) DIAGNOSTIC Terumo 1 40-7019 498994 323926 583061 5 Pringle 110cm 5 Fr catheter (759603) CHOICE PT [place] 1 [id number] 022937 848976 828069 5 Extra Scientific Support 182cm wire (1509154P0) INFLATOR Merit 1 WQ1601 208152 241626 703430 15 Merit Medical BasixCompak (ZU6459) GUIDE 6FR Medtronic 1 ON2CPI79 647142 69776 522572 0 EBU 3.0 catheter (FY3PWY19) [place] 1 82145Z 451093 272504 212057 8 [place] IVUS Catheter (98422X) GUIDE 6FR AR Medtronic 1 [id number] 434140 06027 702742 1 1.0 SH catheter ([id number]) INTEGRITY RX Medtronic 1 [id number] 760960 629174 536126 5 [id number] 3.5 x 12 stent ([id number]) INTEGRITY RX Medtronic 1 [id number] 525452 737144 045245 5 [id number] 3.0 x 15 stent ([id number]) INTEGRITY RX Medtronic 1 [id number] 291163 547963 070833 5 [id number] 3.5 x 18 stent ([id number]) ZEPHYR Cardinal 1 716638 117600 678204 5 REGULAR TR Health BAND NO COST(354630) Signature Audit [place] Stage Time Signature Unsigned Intra-Procedure 05/14/2018 Jamin Eng 12:58:00 PM RT(R) Signatures Monitor : Jamin Eng RT Signature : Date : Time : [facility] [address] [place] [address]
[2018-05-14] MEDS ORDERED: AUGMENTIN 875-11 TAB PO (09:22)
[2018-05-14] MEDS ORDERED: HYDROCODON-ACE1 EA10 PO (09:25)
[2018-05-14] MEDS ORDERED: LIPITOR20 MG PO (09:26)
[2018-05-14 09:38] VITALS: BP 135/48; Ht 157.5 cm; Wt 96.4 kg
[2018-05-14 09:47] LABS: BASOPHILS 0.5 % (0-2); EOSINOPHILS 0.7 % (0-7); HEMATOCRIT 39.3 % (36.0-48.0); HEMOGLOBIN 13.1 g/dL (12-16); IMMATURE GRANULOCYTES 0.7 % (0-5); LYMPHOCYTES 24.6 % (15-50); MCH 28.6 pg (26.0-34.0); MCHC 33.3 g/dL (31.0-37.0); MCV 85.8 fL (80.0-100.0); MEAN PLATELET VOLUME 8.3 fL (7.4-10.4); MONOCYTES 4.9 % (2-11); NEUTROPHILS 68.6 % (40-80); PLATELET COUNT 276 10x3/uL (130-400); RBC 4.58 10x6/uL (4.00-5.40); RDW 15.2 % (11.5-14.5); WBC 10.7 10x3/uL (4.8-10.8)
[2018-05-14 09:55] LABS: CALC OSMOLALITY 278 mosm/kg (275-300); CALCIUM 8.4 mg/dL (8.5-10.1); CARBON DIOXIDE 25.4 mmol/L (21.0-32.0); CHLORIDE - SERUM 105 mmol/L (98-107); CREATININE - SERUM 0.6 mg/dL (0.6-1.3); GLUCOSE 110 mg/dL (74-106); POTASSIUM - SERUM 3.9 mmol/L (3.5-5.1); SODIUM 140 mmol/L (136-145); UREA NITROGEN 10 mg/dL (7-18); eGFR NON AFRICAN AMERICAN > 90 mL/min (90-120)
[2018-05-14] MEDS ORDERED: BAYER CHEWABLE81 MG PO (13:20)
[2018-05-14] MEDS ORDERED: PLAVIX75 MG PO (13:20)
--- NOTE | 2018-05-14 13:25 | NUR ---
PATIENT AWAKE, EATING SANDWICH, NO N/V. FAMILY PRESENT AT BEDSIDE. VSS ON 2L NC. RIGHT Z BAND IN PLACE, NO S/S OF BLEEDING OR HEMATOMA. NO C/O PAIN, NUMBNESS, OR TINGLING.
--- NOTE | 2018-05-14 13:55 | NUR ---
PATIENT RESTING, VSS ON ROOM AIR. RIGHT Z BAND IN PLACE, NO S/S OF BLEEDING OR HEMATOMA.
--- NOTE | 2018-05-14 14:25 | NUR ---
PATIENT RESTING, VSS ON 1L NC. RIGHT Z BAND IN PLACE, NO S/S OF BLEEDING OR HEMATOMA. NO C/O PAIN, NUMBNESS, OR TINGLING.
--- NOTE | 2018-05-14 14:55 | NUR ---
PATIENT AWAKE. ASSISTED WITH BEDPAN. RIGHT Z BAND IN PLACE, NO S/S OF BLEEDING OR HEMATOMA. VSS ON 1L NC.
--- NOTE | 2018-05-14 15:25 | NUR ---
PATIENT AWAKE, EATING AND DRINKING. VSS ON 1L NC. RIGHT Z BAND IN PLACE, NO S/S OF BLEEDING OR HEMATOMA. NO C/O PAIN, NUMBNESS, OR TINGLING.
--- NOTE | 2018-05-14 15:55 | NUR ---
PATIENT AWAKE, C/O PAIN IN BACK. NORCO GIVEN PER ORDER. VSS ON ROOM AIR. RIGHT Z BAND IN PLACE, BEGIN AIR REMOVAL PROTOCOL, NO S/S OF BLEEDING OR HEMATOMA.
--- NOTE | 2018-05-14 16:25 | NUR ---
IV REMOVED. DISCHARGE EDUCATION GIVEN TO PATIENT AND FAMILY MEMBERS REGARDING DISCHARGE INSTRUCTIONS AND MEDICATIONS, ALL QUESTIONS ANSWERED. VSS ON ROOM AIR. REMAINING AIR REMOVED FROM Z BAND, NO S/S OF BLEEDING OR HEMATOMA.
--- NOTE | 2018-05-14 16:55 | NUR ---
RIGHT RADIAL DRESSING IS CDI, NO S/S OF BLEEDING OR HEMATOMA. PATIENT TRANSPORTED VIA WHEELCHAIR TO CAR WITH FAMILY DRIVING, ALL BELONGINGS SENT WITH PATIENT.
--- NOTE | 2018-05-16 09:08 | OP ---
PATIENT NAME: RUFINA HERNANDEZ MEDICAL RECORD: [id number] :59 LOCATION:D.CAT ADMISSION DATE: SURGEON: KATIE WHITMAN MD DATE OF OPERATION: 05/14/2018 PROCEDURES: 1. PTCA stent RCA. 2. PTCA stent left circumflex. 3. Intravascular ultrasound of left circumflex. 4. Intravascular ultrasound of the LAD. 5. Left heart catheterization. 6. Selective coronary angiography. 7. Left ventriculogram. INDICATION: Angina and coronary artery disease. PROCEDURE IN DETAIL: After informed consent was obtained and after a detailed description of the risks, benefits as well as alternative therapies, the patient elected to proceed with angiogram and angioplasty. The right radial area was prepped and draped in normal sterile fashion. Right radial artery was cannulated via modified Seldinger technique with placement of 6-Thai sheath. All catheters exchanged through this sheath. FINDINGS: The left ventriculogram was performed in standard 30-degree WEEKS view, reveals good cardiac wall motion, ejection fraction is 60%. SELECTIVE CORONARY ANGIOGRAPHY: 1. Left main has no significant angiographic disease. 2. Left anterior descending has no significant stenosis, nothing greater than 30% confirmed by intravascular ultrasound. 3. The left circumflex has 78% stenosis in the mid vessel confirmed by intravascular ultrasound. 4. Right coronary has greater than 75% stenosis throughout the mid vessel in 2 places. PTCA STENT OF THE LEFT CIRCUMFLEX: The stent used 3.5 x 12 mm Integrity. Result was 0% residual stenosis. PTCA STENT OF THE RCA: Stents used were 3.5 x 18 and 3.0 x 15 both Integrity stents. Result was 0% residual stenosis. OVERALL IMPRESSION: Successful PTCA stent of the RCA and left circumflex, both going from greater than 75% initial stenosis to 0% residual. TRANSINT:[id number] Voice Confirmation ID: [id number] DOCUMENT ID: [id number] KATIE WHITMAN MD at 0908 CC: [id number] DICTATION DATE: 05/14/18 1253 CHIEF MATE: 05/14/18 1456 DEP CLI 05/14/18 [place] [address]
--- NOTE | 2018-05-19 11:45 | EC ---
PATIENT:RUFINA HERNANDEZ DATE OF SERVICE: 05/14/18 SEX: F MEDICAL RECORD: [id number] DATE OF : 59 LOCATION:D.CAT AGE OF PATIENT: 63 ADMISSION DATE: 05/14/18 REFERRING PHYSICIAN: INTERPRETING PHYSICIAN: KATIE PALMA MD ECHOCARDIOGRAM REPORT ECHO CHARGES 4 ECHO COMPLETE Date: 05/14/18 CLINICAL DIAGNOSIS: ECHOCARDIOGRAPHIC MEASUREMENTS (adult normal given) AC root (d.<3.7cm) 2.3 cm LV Septum d (<1.2 cm> 0.9 cm Valve Excursion 1.0 cm LV Septum (systole) 1.6 cm Left Atria (s.<4.0cm> 2.8 cm LVPW d(<1.2cm) 1.0 cm RV (d.<2.3cm) 2.5 cm LVPW (sytole) 1.6 cm LV diastole(<5.6CM) 5.8 cm MV E-F(>70mm/sec) cm LV systole 3.9 cm LVOT Diameter 1.8 cm MV exc.(>10mm) cm Est.ejection fraction (50-75%) % DOPPLER: LVIT cm/sec A 153 cm/sec E 135 cm/sec LA cm/sec RVSP 45.2 mmHg LVOT 198 cm/sec AOP1/2T m/s Asc. Ao 309 cm/sec RVOT 123 cm/sec RA cm/sec PA 198 cm/sec AV Gradient Peak 38.2 mmHg AV Mean 21.1 mmHg AV Area 1.7 cm MV Gradient Peak 17.9 mmHg MV Mean 7.5 mmHg MV Area cm COMMENTS: Director Medical Science: Nick LI Punch Box Tender: Ivelisse Palma TAPE# PACS Pericardial Effusion N DATE OF SERVICE: 05/14/2018 FINDINGS: 1. Left ventricular chamber size is within normal limits. Left ventricular systolic function is normal. Overall ejection fraction is estimated at 65%. 2. Left atrium, right atrium, and right ventricle chamber sizes are within normal limit. 3. Valvular structures have normal structure and motion. 4. Doppler interrogation reveals mild mitral regurgitation and mild tricuspid regurgitation. No other valvular insufficiency or stenosis. Pulmonary systolic ECHOCARDIOGRAM REPORT [id number] RFUINA HERNANDEZ pressure is estimated at 45 mmHg. 5. No evidence of pericardial effusion or left ventricular thrombus. TRANSINT:[id number] Voice Confirmation ID: [id number] DOCUMENT ID: [id number] KATIE PALMA MD at 1145 CC: [id number] DICTATION DATE: 05/14/18 160 LINE PULLER: 05/14/18 1716 DEP CLI 05/14/18 [place] [id number] [place] [id number]
== END 2018-05-14 16:55 ==
LOC: D.CATH 08:57
PROVIDERS: Internal Medicine Interventional Cardiology
DX: I25.119 Atherosclerotic heart disease of native coronary artery with unspecified angina pectoris (principal)

== ENCOUNTER 2018-07-25 13:47 | Emergency (ER) | payer MEDICAID ==
[~2018-07-25] VITALS: Ht 157.5 cm; Wt 98.2 kg
[~2018-07-25 13:47] MED LIST changes: +AUGMENTIN 875-11 TAB PO; +BAYER CHEWABLE81 MG PO; +HYDROCODON-ACE1 EA10 PO; +LIPITOR20 MG PO; +PLAVIX75 MG PO
[2018-07-25 13:59] VITALS: Ht 157.5 cm; Wt 98.2 kg
[2018-07-25 14:36] LABS: BASOPHILS 0.2 % (0-2); EOSINOPHILS 0.8 % (0-7); HEMATOCRIT 35.5 % (36.0-48.0); HEMOGLOBIN 11.8 g/dL (12-16); IMMATURE GRANULOCYTES 0.8 % (0-5); LYMPHOCYTES 21.5 % (15-50); MCHC 33.2 g/dL (31.0-37.0); MCV 84.3 fL (80.0-100.0); MEAN PLATELET VOLUME 8.2 fL (7.4-10.4); MONOCYTES 6.7 % (2-11); PLATELET COUNT 230 10x3/uL (130-400); RBC 4.21 10x6/uL (4.00-5.40); WBC 10.8 10x3/uL (4.8-10.8)
[2018-07-25 14:49] LABS: APTT 30.2 SECONDS (22.8-39.4); INR 1.05 (0.85-1.17); PROTIME 13.2 SECONDS (11.6-15.0)
[2018-07-25 14:52] LABS: ALBUMIN 3.1 g/dL (3.4-5.0); ALKALINE PHOSPHATASE 88 U/L (46-116); ALT (SGPT) 18 U/L (10-68); BILIRUBIN - TOTAL 0.34 mg/dL (0.2-1.3); CALC OSMOLALITY 275 mosm/kg (275-300); CALCIUM 8.5 mg/dL (8.5-10.1); CARBON DIOXIDE 27.9 mmol/L (21.0-32.0); CHLORIDE - SERUM 103 mmol/L (98-107); CREATININE - SERUM 0.6 mg/dL (0.6-1.3); GLUCOSE 92 mg/dL (74-106); POTASSIUM - SERUM 3.9 mmol/L (3.5-5.1); PROTEIN - SERUM 7.4 g/dL (6.4-8.2); SODIUM 139 mmol/L (136-145); UREA NITROGEN 8 mg/dL (7-18); eGFR NON AFRICAN AMERICAN > 90 mL/min (90-120)
[2018-07-25 15:04] LABS: CKMB 1.1 U/L (0.0-3.6); CREATINE KINASE 59 UL (21-215); PRO BNP 676 pg/mL (0-125)
[2018-07-25 15:08] LABS: TROPONIN-I < 0.017 ng/mL (0.000-0.060)
[2018-07-25] MEDS ORDERED: ALBUTEROL SULF8.5 GM INH (16:52)
[2018-07-25] MEDS ORDERED: KEFLEX500 MG PO (16:53)
[2018-07-25 17:36] VITALS: BP 168/54
== END 2018-07-25 17:38 | disposition home or self-care (01) ==
LOC: D.ER 13:47
PROVIDERS: Emergency Medicine
DX: R06.00 Dyspnea, unspecified (principal); J40 Bronchitis, not specified as acute or chronic

== ENCOUNTER 2018-08-19 07:38 | Day surgery (SDC) | payer MEDICAID ==
[~2018-08-19] VITALS: Ht 157.5 cm; Wt 118.2 kg
--- NOTE | ~2018-08-19 | OP ---
PATIENT NAME: RUFINA HRENANDEZ MEDICAL RECORD: [id number] :59 LOCATION:D.OPS ADMISSION DATE: SURGEON: HYUN FLORES MD DATE OF OPERATION: 08/19/2018 PROCEDURE: EGD with biopsy. PRINTED CIRCUIT LAYOUT TAPER: Hyun Flores MD, gastroenterology SCOPE: Olympus video gastroscope. MEDICATIONS: Per TIVA anesthesia. The patient received 100 mcg of Nii-Synephrine and propofol 200 mg, all IV push; O2 at 10 liters mask. INDICATION FOR THE PROCEDURE: Jung's esophagus and gastroesophageal reflux disease. The patient also complained of vocal cord discomfort and I note that she has seen Dr. Bustos in the past for a lesion on the base of her tongue, which was found to be a neuroma. No atypical features were present. Her sigmoid epithelium showed no significant pathology. This was on 01/17/2018. As the patient is complaining of some more oropharyngeal problems, we will refer her again to Dr. Bustos. GASTROINTESTINAL FINDINGS: Informed consent was given. The patient was made comfortable with the above medications. After reaching an adequate level of sedation by slow IV push, the patient was placed on her left side. The endoscope was then advanced under direct visualization through the posterior pharyngeal area and advanced to the distal esophagus. Very mild evidence of Jung's esophagus was appreciated. The patient did, however, have some distal esophageal erosions and biopsies were obtained. She did bleed initially very freely with these biopsies, but photocoagulation was obtained. Hemostasis was obtained after waiting a few minutes. On entering the stomach, mild inflammation was seen throughout. No ulcers or erosions. A Helicobacter histopathology biopsy was taken at the antral area for review. The duodenal bulb to the second portion had [id number] inflammation and biopsies were taken within the second part of the duodenum. The scope was then withdrawn. IMPRESSION: 1. Photograph taken of the vocal cords as the patient is complaining of vocal cord discomfort and appears to be hoarse. We will refer her to Dr. Bustos for further evaluation. She was seen back in December of 2017 for a lesion at the base of her tongue, which was noted to be a neuroma with no atypical features. 2. Jung's esophagus and erosive esophagitis at the distal esophageal area. Biopsied. 3. Mild gastritis. No ulcers and no erosions. Biopsied. 4. Qjqz-kx-rcjkjjtu duodenitis. Biopsy taken within the second part of the duodenum. The scope was then withdrawn. PLAN: 1. We will start omeprazole at a dose of 20 mg p.o. q.a.m. and famotidine 20 mg p.o. at bedtime. 2. The patient to follow reflux precautions stringently, both dietary and positional. No chocolate, tomato, citrus, caffeine, fatty foods, peppermint, tobacco, or alcohol. The patient should not eat late at night and should sit up OPERATIVE REPORT [id number] RUFINA HERNANDEZ for 2 hours after every meal. If she refluxes during nighttime hours, she should sleep with the head of the bed elevated. 3. Clinic visit with Dr. Bustos as she is complaining of some discomfort in the oropharyngeal area, which she states is around her vocal cords. 4. Caution with anti-inflammatory drugs. Return to clinic on a p.r.n. basis. TRANSINT:[id number] Voice Confirmation ID: [id number] DOCUMENT ID: [id number] HYUN FLORES MD CC: JIMY DE OLIVEIRA MD, LISA BUSTOS and KATIE WHITMAN [id number] DICTATION DATE: 08/19/18 1052 AIR BRAKE OPERATOR: 08/19/18 1221 [facility] 08/19/18 [facility] [address] [place] [address]
[~2018-08-19 07:38] MED LIST changes: +ALBUTEROL SULF8.5 GM INH; +KEFLEX500 MG PO
[2018-08-19 08:01] LABS: HEMATOCRIT 38.1 % (36.0-48.0); MCH 28.3 pg (26.0-34.0); MCHC 34.1 g/dL (31.0-37.0); MEAN PLATELET VOLUME 8.4 fL (7.4-10.4); RBC 4.59 10x6/uL (4.00-5.40); WBC 10.8 10x3/uL (4.8-10.8)
[2018-08-19 08:15] LABS: ALBUMIN 3.5 g/dL (3.4-5.0); ALKALINE PHOSPHATASE 87 U/L (46-116); ALT (SGPT) 23 U/L (10-68); BILIRUBIN - TOTAL 0.37 mg/dL (0.2-1.3); CALC OSMOLALITY 278 mosm/kg (275-300); CALCIUM 8.7 mg/dL (8.5-10.1); CARBON DIOXIDE 27.3 mmol/L (21.0-32.0); CHLORIDE - SERUM 100 mmol/L (98-107); CREATININE - SERUM 0.7 mg/dL (0.6-1.3); GLUCOSE 137 mg/dL (74-106); POTASSIUM - SERUM 3.7 mmol/L (3.5-5.1); PROTEIN - SERUM 7.9 g/dL (6.4-8.2); SODIUM 138 mmol/L (136-145); UREA NITROGEN 14 mg/dL (7-18); eGFR NON AFRICAN AMERICAN 90 mL/min (90-120)
[2018-08-19] MEDS ORDERED: CLEOCIN HCL300 MG PO (08:25)
[2018-08-19 08:26] LABS: APTT 30.4 SECONDS (22.8-39.4); INR 0.99 (0.85-1.17); PROTIME 12.6 SECONDS (11.6-15.0)
[2018-08-19] MEDS ORDERED: CHANTIX 1 MG TAB1 MG PO (08:27)
[2018-08-19 08:38] VITALS: Ht 157.5 cm; Wt 118.2 kg
--- NOTE | 2018-08-19 11:32 | NUR ---
REFERRAL ORDER FOR DR. BUSTOS FAXED TO OFFICE
--- NOTE | 2018-08-19 11:39 | NUR ---
DC INSTRUCTIONS GIVEN TO PT/FAMILY. STATE UNDERSTANDING. DC'D IV CATH FULLY INTACT
--- NOTE | 2018-08-19 11:47 | NUR ---
PT LEFT UNIT VIA WC AT 1146
== END 2018-08-19 11:46 | disposition home or self-care (01) ==
LOC: D.OPS 07:38
PROVIDERS: Anesthesiology; ATTEND Internal Medicine Gastroenterology
DX: K22.70 Barrett's esophagus without dysplasia (principal); K29.50 Unspecified chronic gastritis without bleeding; K29.80 Duodenitis without bleeding; Z01.812 Encounter for preprocedural laboratory examination

== ENCOUNTER 2018-11-19 19:00 | Outpatient (CLI) | payer MEDICAID ==
[2018-08-19 08:38] VITALS: BMI 47.7
[~2018-11-19 19:00] MED LIST changes: +CHANTIX 1 MG TAB1 MG PO; +CLEOCIN HCL300 MG PO
== END 2018-11-19 23:59 | disposition home or self-care (01) ==
LOC: D.MAMMO 19:00
PROVIDERS: ATTEND Emergency Medicine
DX: Z12.31 Encounter for screening mammogram for malignant neoplasm of breast (principal)

== ENCOUNTER 2019-04-16 03:32 | Inpatient (IN) | payer MEDICAID ==
[~2019-04-16] VITALS: Ht 157.5 cm; Wt 101.6 kg
--- NOTE | ~2019-04-16 | HEMODYNAMI ---
PATIENT:RUFINA HERNANDEZ MEDICAL RECORD: [id number] : 59 [id number] ADMISSION DATE: 04/16/19 Generatedon:04/17/201913:27 Patient name: RUFINA HERNANDEZ Patient #: [id number] SSN: [id number] : 1955 Date of study: 04/17/2019 Page: Of Hemodynamic Procedure Report Patient Data Patient Demographics Procedure consent was obtained First Name: RUFINA Gender: Female Last Name: DAVID : 1955 Middle Initial: DEONDRE Age: 63 year(s) Patient #: [id number] Race: Unknown Ethnicity: or SSN: [id number] Additional ID: [id number] Contact details [address]: [address] [place] [address] State: [place] City: [place] Zip code: [facility] Past Medical History History of disease Date Diagnosis Comments CAD Allergies Allergen Reaction Date Comments Reported Morphine 05/22/2016 Penicillins 05/22/2016 Toradol 05/22/2016 Other allergy 05/14/2018 Lyrica, Morphine, PCN, Toradol Other allergy 04/17/2019 PCN, CORTISONE, TORADOL , LYRICA SULFA, MORPINE Admission Admission Data Admission Date: 04/16/2019 Admission Time: 4:54 Room #: D.2102 Height (in.): 61.81 BSA: 2 (m2) Height (cm.): 157 BMI: 41.38 (kg/m2) Weight (lbs.): 224.87 Weight (kg.): 102 Lab Results Lab Result Date: 04/17/2019 Lab Result Time: 0:00 Biochemistry Name Units Result Min Max BUN mg/dl 15 --(--*-)-- 7 18 Creatinine mg/dl 0.9 --(-*--)-- 0.6 1.3 eGFR ml/min 67.44367 *-(----)-- 90 120 NONAFRICAN CBC Name Units Result Min Max Hematocrit % 40.4 -*(----)-- 42 54 Hemoglobin g/dl 12.5 *-(----)-- 13.5 17.5 Procedure Procedure Types Cath Procedure Diagnostic Procedure [facility] w/Coronaries Sedation Charges Moderate Sedation up to 30 minutes PCI Procedure PTCA PTCA Initial Hemochron ACT Test Procedure Description Procedure Date Procedure Date: 04/17/2019 Procedure Start Time: 12:38 Procedure End Time: 13:17 Procedure Staff Name Function Jose Javed RN Nurse Farshad Vanegas MD Performing Physician Erika Flores RT Scrub [facility] RT Monitor Procedure Data Cath Procedure Fluoroscopy Diagnostic fluoroscopy Total fluoroscopy Time: 7.8 time: 7.8 min min Diagnostic fluoroscopy Total fluoroscopy dose: dose: 1232 mGy 1232 mGy Contrast Material Contrast Material Type Amount (ml) Isovue 300 121 Entry Location Entry Primary Successful Side Size Upsize Upsize Entry Closure Succes sful Closure Location (Fr) 1 (Fr) 2 (Fr) Remarks Device Remarks Femoral Right 5 Fr vein Femoral Right 5 Fr 6 Fr Exoseal artery Short Estimated blood loss: 10 ml Diagnostic catheters Device Type Used For End Catheter Placement MULTIPACK JL 4.0 5Fr Procedure catheter MULTIPACK 3DRC 5Fr Procedure catheter MULTIPACK Pigtail 5 Fr Procedure catheter Procedure Complications No complications Procedure Medications Medication Administration Route Dosage Oxygen etCO2 Nasal cannula 2 l/min Lidocaine 2% added to field 20 Heparin Flush Bag added to field 2 bags (1000units/500ml NS) 0.9% NaCl I.V. 100 ml/hr Versed I.V. 1 mg Fentanyl I.V. 50 mcg Versed I.V. 1 mg Fentanyl I.V. 50 mcg Versed I.V. 1 mg Versed I.V. 1 mg Heparin Bolus I.V. 74977 units Nitroglycerin IC/IA I.C. 50 mcg Plavix P.O. 600 mg Hemodynamics Rest BSA: 2 (m2) HGB: 12.5 (g/dl) O2 Consumption: Estimated: 196.58 (ml/min) O2 Consu mption indexed: Estimated:98.29 (ml/min/m) Heart Rate: 80 (bpm) Pressure Samples Time Site Value (mmHg) Purpose Heart Use Rate(bpm) 12:53 LV 167/20,31 Snapshot 87 Gradients Valve Time Site Site Mean SEP/DFP Peak To Heart Use 1 2 (mmHg) (sec/min) Peak Rate (mmHg) (bpm) Aortic 12:53 LV AO 87 Snapshots Pre Cath Intra NCS Post Cath Vital Signs Time Heart Resp SPO2 etCO2 NIBP (mmHg) Rhythm Pain Sedation Rate (ipm) (%) (mmHg) Status Level (bpm) 12:26:44 79 12 97 0 136/69(92) NSR 0 (11) 10(A) , No pain 12:30:56 78 10 96 0 128/62(122) NSR 0 (11) 10(A) , No pain 12:35:06 79 19 96 0 124/61(103) NSR 0 (11) 10(A) , No pain 12:39:12 80 19 97 50.6 122/72(100) NSR 0 (11) 10(A) , No pain 12:43:18 80 11 97 52.1 130/70(92) NSR 0 (11) 9(A) , No pain 12:47:28 85 13 95 52.1 130/63(106) NSR 0 (11) 9(A) , No pain 12:51:38 84 20 93 36.3 134/61(94) NSR 0 (11) 9(A) , No pain 12:55:47 86 15 93 10.5 124/72(88) NSR 0 (11) 9(A) , No pain 12:59:57 89 14 93 60.4 116/56(81) NSR 0 (11) 10(A) , No pain 13:04:05 86 13 91 62 110/54(87) NSR 0 (11) 10(A) , No pain 13:08:13 85 15 93 28.7 105/51(74) NSR 0 (11) 10(A) , No pain 13:12:17 82 16 86 61.9 118/56(94) NSR 0 (11) 10(A) , No pain 13:16:23 81 16 89 60.4 112/66(88) NSR 0 (11) 10(A) , No pain Medications Time Medication Route Dose Verified Delivered Reason Note s Effectiveness by by 12:27:06 Oxygen etCO2 2 Farshad Buffie used for Nasal l/min Ward Javed aquarium specialist cannula 12:27:13 Lidocaine 2% added 20ml Farshad Farshad for local to vial Ward Vanegas MD anesthetic field 12:27:21 Heparin Flush added 2 bags Farshad Afrshad used for Bag to Ward Vanegas MD procedure (1000units/500ml field NS) 12:27:29 0.9% NaCl I.V. 100 Farshad Buffie Per physician ml/hr Ward Javed RN 12:36:06 Versed I.V. 1 mg Farshad Buffie for sedation Ward Javed RN 12:36:11 Fentanyl I.V. 50 mcg Farshad Buffie for sedation Ward Javed RN 12:40:48 Versed I.V. 1 mg Farshad Buffie for sedation Ward Javed RN 12:40:51 Fentanyl I.V. 50 mcg Farshad Buffie for sedation Ward Javed RN 12:48:12 Versed I.V. 1 mg Farshad Buffie for sedation Ward Javed RN 12:53:41 Versed I.V. 1 mg Farshad Buffie for sedation Ward Javed RN 12:58:47 Heparin Bolus I.V. 10,000 Farshad Buffie for veri fied units Ward Javed RN anticoagulation iw dr vanegas 13:07:34 Nitroglycerin I.C. 50 mcg Farshad Farshad for IC/IA Ward Vanegas MD vasodilation 13:12:04 Plavix P.O. 600 mg Farshad Buffie for Ward Javed RN antiplatelet therapy Procedure Log Time Note 12:00:08 Informed consent obtained and on chart 12:00:31 Procedure Status Urgent Heart Cath (IP). 12:00:33 Time tracking: Regular hours (M-F 7:00 - 5:00) 12:00:36 Plan of Care:Hemodynamics will remain stable., Cardiac rhythm will remain stable., Comfort level will be maintained., Respiratory function will remain adequate., Patient/ family verbilizes understanding of procedure., Procedure tolerated without complication., Recovers from procedure without complications.. 12:00:40 Jose Javed RN sent for patient. Start room use. 12:00:53 H&P Date Dictated: 04/17/2019 Within 30 days and on chart.. 12:04:26 Patient allergic to Other allergyPCN, CORTISONE, TORADOL , LYRICA SULFA, MORPINE 12:05:14 Lab Result : Hemoglobin 12.5 g/dl 12::14 Lab Result : Hematocrit 40.4 % 12::14 Lab Result : eGFR NONAFRICAN 67.99333 ml/min 12::14 Lab Result : BUN 15 mg/dl 12::14 Lab Result : Creatinine 0.9 mg/dl 12:07:57 Patient Weight : 224.87 lbs 12:08:01 Patient Height : 61.81 inches 12:14:25 Patient received from Med II to CCL 1 Alert and oriented. Tansferred to table in Supine position. 12::27 ECG and BP/O2 sat monitors applied to patient. 12:: Correct patient and procedure confirmed by team. 12:: Warm blankets applied, and manuela hugger turned on for patient comfort. 12:25:31 Vital chart was started 12:26:00 Baseline sample Acquired. 12:26:03 Rhythm: sinus rhythm 12:26:05 Pre-procedure instructions explained to patient. 12:26:05 Full Disclosure recording started 12:26:06 Pre-op teaching completed and patient verbalized understanding. 12:26:07 Family in patients room. 12:26:08 Patient NPO since Midnight. 12:26:10 Is the patient allergic to Iodine/contrast media? No. 12:26:47 PATIENT GIVEN A LOVENOX SHOT 12:26:50 Patient diabetic? No. 12:27:06 PT. ON METFORMIN FOR WEIGHT LOSS 12:27:06 Oxygen 2 l/min etCO2 Nasal cannula was administered by Jose Javed RN; used for procedure; Verbal order read back and verified. 12:27:09 Patient not . Patient is over age 55. 12:27:11 Previous problem with sedation/anesthesia? No ? 12:27:13 Snore? Yes 12:27:13 Lidocaine 2% 20ml vial added to field was administered by Farshad Vanegas MD; for local anesthetic; Verbal order read back and verified. 12:27:15 Sleep apnea? Yes 12:27:18 Deviated septum? No 12:27:19 Opens mouth fully? Yes 12:27:20 Sticks out tongue? Yes 12:27:21 Heparin Flush Bag (1000units/500ml NS) 2 bags added to field was administered by Farshad Vanegas MD; used for procedure; Verbal order read back and verified. 12:27:29 0.9% NaCl 100 ml/hr I.V. was administered by Jose Javed RN; Per physician; Verbal order read back and verified. 12:27:34 Airway obstruction? Yes COPD, CHRONIC BRONCHITITS 12:27:42 Dentures? No ? 12:27:47 Pre procedure: right dorsailis pedis pulse 1+ Palpable, but thready & weak; easily obliterated 12:27:54 Patient pain scale 0/10 ?. 12:27:59 IV patent on arrival in right antecubital with 0.9% NaCl at [facility]. 12:28:08 Lab results completed and on chart. 12:28:12 Right groin area was prepped with chlora-prep and draped in sterile fashion 12:28:14 Sharps counted by scrub and verified by R.N. 12:28:14 Alarms reviewed by R. N. 12:28:18 Use device set Femoral Dx 12:28:19 ACIST Syringe (16505) opened to sterile field. 12:28:20 Bag Decanter (2002S) opened to sterile field. 12:28:21 ACIST Manifold (74180) opened to sterile field. 12:28:21 ACIST Hand Control (71878) opened to sterile field. 12:28:23 Tegaderm 4 x 4 (1626W) opened to sterile field. 12:28:24 Medline Cath Pack ([id number]) opened to sterile field. 12:28:25 DIAGNOSTIC Multipack 5Fr catheter set (ZZ3491) opened to sterile field. 12:28:26 EMERALD Guide Wire (171-876) opened to sterile field. 12:28:26 SHEATH 5FR Bruning (FUM573) opened to sterile field. 12:34:14 Risk of Mortality: .1 12:34:17 Risk of blood transfusion: 1 12:34:20 Risk of ALEJANDRA: 1.8 12:34:24 Final Timeout: patient, procedure, and site verified with staff and physician. All members of the team are in agreement. 12:34:24 --------ALL STOP TIME OUT------ 12:34:26 Right groin site verified by team. 12:34:30 Fire Safety Assessment: A--An alcohol-based skin anteseptic being used preoperatively., C--Open oxygen or nitrous oxide is being used., D--An ESU, laser, or fiber-optic light is being used. 12:34:34 Physical assessment completed. ASA score P 3 - A patient with severe systemic disease as per Farshad Vanegas MD. 12:34:38 2) 60-89 Mildly reduced kidney function, and other findings (as for stage 1) point to kidney disease. 12:34:41 Maximum allowable contrast dose (3.7 X eGFR X 0.75)186 ml. 12:34:45 Sedation plan: IV Moderate Sedation Medication:Versed, Fentanyl 12:36:06 Versed 1 mg I.V. was administered by Jose Javed RN; for sedation; Verbal order read back and verified. 12:36:11 Fentanyl 50 mcg I.V. was administered by Jose Javed RN; for sedation; Verbal order read back and verified. 12:36:51 Zero performed for pressure channel P1 12:38:18 Procedure started. 12:38:37 Local anesthetic to right femoral artery with Lidocaine 2% by Farshad Vanegas MD.INITIAL ACCESS ONLY 12:40:48 Versed 1 mg I.V. was administered by Jose Javed RN; for sedation; Verbal order read back and verified. 12:40:51 Fentanyl 50 mcg I.V. was administered by Jose Javed RN; for sedation; Verbal order read back and verified. 12:41:50 A 5 Fr sheath was inserted into the Right Femoral vein 12:42:56 SHEATH 5FR Bruning (BFT182) opened to sterile field. 12:45:00 A 5 Fr sheath was inserted into the Right Femoral artery 12:45:23 A MULTIPACK JL 4.0 5Fr catheter was advanced over the wire and used for Procedure. 12:47:43 LCA angiography performed. 12:47:45 Catheter exchanged over wire. 12:48:12 Versed 1 mg I.V. was administered by Jose Javed RN; for sedation; Verbal order read back and verified. 12:48:58 A MULTIPACK 3DRC 5Fr catheter was advanced over the wire and used for Procedure. 12:50:12 RCA angiography performed. 12:50:15 Catheter exchanged over wire. 12:50:57 A MULTIPACK Pigtail 5 Fr catheter was advanced over the wire and used for Procedure. 12:52:07 SHEATH 6FR Bruning (YPH407) opened to sterile field. 12:52:08 INFLATOR Merit BasixCompak (KF0046) opened to sterile field. 12:52:26 GUIDE 6FR 3DRC SH catheter ([id number]) opened to sterile field. 12:52:58 Asahi Minamo 300cm wire opened to sterile field. 12:53:08 LV gram done using WEEKS 12:53:10 Injector settings: Ml/sec: 10, Volume: 20, 12:53:11 LV hemodynamics recorded. 12:53:24 EF : 60 % 12:53:39 Catheter exchanged over wire. 12:53:41 Versed 1 mg I.V. was administered by Jose Javed RN; for sedation; Verbal order read back and verified. 12:53:51 TUBING High Pressure Extension Tubing (Ward) ([id number]) opened to sterile field. 12:54:07 Proceeding to intervention. 12:54:20 Pre PCI Site: [place] mRCA has 90% stenosis. 12:55:31 Sheath upsized to a 6 Fr Short. 12:56:35 6 Fr 3DRC SH guide catheter was inserted over the wire 12:58:47 Heparin Bolus 10,000 units I.V. was administered by Jose Javed RN; for anticoagulation; verified iw dr vanegas Verbal order read back and verified. 12:58:53 MINAMO 300 wire advanced. 13:00:09 Wire advanced across lesion. 13:03:27 Inflate balloon Inflation number: 1 A EMERGE OTW 3.0 x 15 balloon ([id number]) was prepped and advanced across the Mid RCA , then inflated to 12 GABE for 0:00 (min:sec) . 13:04:38 Inflation number: 2 The EMERGE OTW 3.0 x 15 balloon ([id number]) was reinflated across the Mid RCA , to 14 GABE for 0:00 (min:sec) . 13:05:34 Balloon removed over the wire. 13:07:34 Nitroglycerin IC/IA 50 mcg I.C. was administered by Farshad Vanegas MD; for vasodilation; Verbal order read back and verified. 13:09:05 Balloon removed over the wire. 13:09:07 Guide catheter removed. 13:09:07 Wire removed. 13:09:13 EXOSEAL 6Fr (EX600) opened to sterile field. 13:10:33 Sheath removed intact; hemostasis achieved with Exoseal to the Right Femoral artery. 13:10:40 Procedure ended.(Physican Out) 13:11:00 Fluoroscopy time 07.80 minutes. 13:11:07 Fluoroscopy dose: 1232 mGy 13:11:07 Flurop Dose total: 1232 13:11:14 Dose Area Product 13550 mGy/cm. 13:11:18 Contrast amount:Isovue 300 121ml. 13:11:21 Maximum allowable dose exceeded? No. 13:11:23 Sharps counted by scrub and verified by R.N. 13:11:28 Post-op/insertion site Right Femoral artery dressed using a 4 x 4 and Tegaderm. 13:11:31 Post-procedure physical assessment completed. ASA score P 3 - A patient with severe systemic disease as per Farshad Vanegas MD. 13:11:33 Post procedure rhythm: sinus rhythm 13:11:37 Estimated blood loss: 10 ml 13:11:48 Patient needs reinforcement of post procedure teaching. 13:11:48 Post procedure instruction explained to patient.Patient verbalizes understanding. 13:12:04 Plavix 600 mg P.O. was administered by Jose Javed RN; for antiplatelet therapy; Verbal order read back and verified. 13:12:46 Procedure type changed to Cath procedure, Diagnostic procedure, LHC, [facility] w/Coronaries, Sedation Charges, Moderate Sedation up to 30 minutes, PCI procedure, PTCA, PTCA Initial, Hemochron ACT Test 13:13:28 Procedure and supply charges have been captured, reviewed, submitted and are correct. 13:13:31 Procedure Complication : No complications 13:13:34 [facility] Findings: MVD- PCI performed (see procedure note) 13:13:36 See physician's report for complete and final results. 13:13:36 Operative report dictated upon procedure completion. 13:15:30 ACT drawn and resulted at 342 seconds. (normal therapeutic range 180-240 seconds). 13:16:56 Vital chart was stopped 13:17:00 Report given to [facility] II. 13:17:04 Patient transfered to [facility] with Bed. 13:17:06 Full Disclosure recording stopped 13:17:06 Procedure ended. 13:17:15 ACC-PCI Only Patient was given prescriptions, or instructed by Farshad Vanegas MD to start/continue the following medications upon discharge: Plavix 13:17:17 End room use (Document Last) 13:18:03 End room use (Document Last) 13:18:29 End room use (Document Last) 13:26:38 FEMSTOP Gold (Y82030) opened to sterile field. 13:26:47 Femstop placed over the right femoral artery at 125 mmHg. Hemostasis achieved. Intervention Summary Intervention Notes Time ActionType Lesion and Equipment Action# Pressure Duration Attributes Used 13:03:27 Inflate Mid RCA EMERGE OTW 1 12 00:00 balloon 3.0 x 15 balloon ([id number]) 13:04:38 Reinflate Mid RCA EMERGE OTW 2 14 00:00 balloon 3.0 x 15 balloon ([id number]) Device Usage Item Name Manufacture Quantity Catalog Number [facility] Lot# / Charge Number Stock Stock Serial# Code ACIST Acist 1 83757 548345 917645 110124 20 Syringe Medical (74756) Systems Inc Bag Decanter Microtek 1 2001S 602135 90595 668304 5 (2001S) Medical Inc. ACIST Hand Acist 1 92684 393587 306438 085994 5 Control Medical (25139) Systems Inc ACIST Acist 1 20370 233830 288627 142586 5 Manifold Medical (74282) Systems Inc Tegaderm 4 x 3M 1 1626W 703812 460315 041021 5 4 (1626W) Medline Cath Medline 1 [id number] 923049 51635 809735 5 Pack ([id number]) DIAGNOSTIC Cardinal 1 AL4833 584246 25718 616841 30 Multipack Health 5Fr catheter set (KA2197) SHEATH 5FR Terumo 2 GZE446 785180 760982 006346 5 Bruning (JKG071) EMERALD Cardinal 1 502-455 413584 653492 959454 5 Guide Wire Health (502-455) MULTIPACK JL Cardinal 1 712909 5 4.0 5Fr Health catheter MULTIPACK Cardinal 1 904978 5 3DRC 5Fr Health catheter MULTIPACK Cardinal 1 033718 5 Pigtail 5 Fr Health catheter SHEATH 6FR Terumo 1 ZWT543 389876 821662 587522 40 Bruning (GKF872) INFLATOR Merit 1 IE8075 769781 183181 646241 15 Merit Medical BasixCompak (XW9746) GUIDE 6FR Medtronic 1 [id number] 747048 987454 863348 1 3DRC SH catheter ([id number]) Tomil Antione Asashiva Intecc 1 [id number] 839510 1396072 929562 0 300cm wire TUBING High Merit 1 [id number] 960317 48522 785452 10 Pressure Medical Extension Tubing (Ward) (JV9265E) EMERGE OTW [place] 1 [id number] 411217 994919 510851 5 [id number] 3.0 x 15 Scientific balloon ([id number]) EXOSEAL 6Fr Cardinal 1 EX600 900170 656358 958270 10 (EX600) Health FEMSTOP Gold [place] 1 S07672 691900 518737 185900 5 (H77649) Signature Audit [place] Stage Time Signature Unsigned Intra-Procedure 04/17/2019 Raina Vanegas 1:18:03 PM RT(R) Intra-Procedure 04/17/2019 Jose Javed RN 1:18:29 PM Intra-Procedure 04/17/2019 Farshad Vanegas MD 1:18:59 PM 04/17/2019 1:26:29 PM Intra-Procedure 04/17/2019 Farshad Vanegas MD 1:27:11 PM [place] [id number] [place] [address]
[2019-04-16 03:45] VITALS: BP 143/54
[2019-04-16 04:22] LABS: BASOPHILS 0.4 % (0-2); EOSINOPHILS 1.9 % (0-7); HEMATOCRIT 40.4 % (36.0-48.0); HEMOGLOBIN 12.5 g/dL (12-16); IMMATURE GRANULOCYTES 0.7 % (0-5); LYMPHOCYTES 12.6 % (15-50); MCH 23.7 pg (26.0-34.0); MCHC 30.9 g/dL (31.0-37.0); MCV 76.5 fL (80.0-100.0); MEAN PLATELET VOLUME 8.2 fL (7.4-10.4); MONOCYTES 9.5 % (2-11); NEUTROPHILS 74.9 % (40-80); PLATELET COUNT 240 10x3/uL (130-400); RBC 5.28 10x6/uL (4.00-5.40); RDW 18.8 % (11.5-14.5); WBC 11.3 10x3/uL (4.8-10.8)
[2019-04-16 04:29] LABS: CALC OSMOLALITY 278 mosm/kg (275-300); CALCIUM 8.7 mg/dL (8.5-10.1); CARBON DIOXIDE 34.7 mmol/L (21.0-32.0); CHLORIDE - SERUM 96 mmol/L (98-107); CREATININE - SERUM 0.9 mg/dL (0.6-1.3); GLUCOSE 95 mg/dL (74-106); POTASSIUM - SERUM 3.6 mmol/L (3.5-5.1); SODIUM 139 mmol/L (136-145); UREA NITROGEN 15 mg/dL (7-18); eGFR NON AFRICAN AMERICAN 67 mL/min (90-120)
[2019-04-16 04:30] LABS: APTT 29.2 SECONDS (22.8-39.4); PROTIME 13.2 SECONDS (11.6-15.0)
[2019-04-16 05:01] LABS: ALBUMIN 3.4 g/dL (3.4-5.0); ALKALINE PHOSPHATASE 89 U/L (46-116); ALT (SGPT) 19 U/L (10-68); BILIRUBIN - TOTAL 0.32 mg/dL (0.2-1.3); CKMB 1.6 U/L (0.0-3.6); CREATINE KINASE 56 UL (21-215); MAGNESIUM - SERUM 1.5 mg/dL (1.8-2.4); PROTEIN - SERUM 7.5 g/dL (6.4-8.2); TROPONIN-I < 0.017 ng/mL (0.000-0.060)
[2019-04-16 05:35] VITALS: BP 109/48; BMI 41.0
[2019-04-16] MEDS ORDERED: CELEXA40 MG PO (05:46)
--- NOTE | 2019-04-16 07:39 | NUR ---
FAMILY AT BEDSIDE WITH PATIENT. REQUESTING WATER. EDUCATED PATIENT ON THE IMPORTANCE OF STAYING NPO BECAUSE OF THE CHEST PAIN. BED IS IN LOW POSITIONA ND CALL LIGHT IS IN REACH. PATIENT DENIES ANY PAIN AT THIS TIME AND OR ANY ADDITIONAL NEEDS
[2019-04-16 09:32] LABS: CKMB 1.1 U/L (0.0-3.6); CREATINE KINASE 47 UL (21-215)
[2019-04-16 09:34] LABS: TROPONIN-I < 0.017 ng/mL (0.000-0.060)
[2019-04-16 09:48] VITALS: BP 137/50
[2019-04-16 12:45] LABS: CHOL - HDL RATIO 2.2 ratio (2.3-4.1); LDL-HDL RATIO 0.9 ratio (1.5-3.5)
[2019-04-16 13:44] VITALS: BP 145/45
[2019-04-16 14:59] LABS: BASOPHILS 0.3 % (0-2); EOSINOPHILS 1.2 % (0-7); HEMATOCRIT 41.3 % (36.0-48.0); HEMOGLOBIN 12.6 g/dL (12-16); IMMATURE GRANULOCYTES 0.8 % (0-5); LYMPHOCYTES 12.3 % (15-50); MCH 23.5 pg (26.0-34.0); MCHC 30.5 g/dL (31.0-37.0); MCV 77.1 fL (80.0-100.0); MONOCYTES 10.2 % (2-11); NEUTROPHILS 75.2 % (40-80); PLATELET COUNT 225 10x3/uL (130-400); RBC 5.36 10x6/uL (4.00-5.40)
[2019-04-16 15:33] LABS: CKMB 1.1 U/L (0.0-3.6); CREATINE KINASE 57 UL (21-215); PRO BNP 360 pg/mL (0-125)
[2019-04-16 15:42] LABS: TROPONIN-I < 0.017 ng/mL (0.000-0.060)
[2019-04-16 17:09] VITALS: BP 178/72
--- NOTE | 2019-04-16 19:05 | NUR ---
PT AWAKE AND ALERT ON BEDSIDE CO OF "BURNING"IN LEFT SIDE AND WANTING PAIN MEDS BED LOW AND LOCKED CALL LIGHT IS WITH PT LCTA BUT DEMINISHED THROUGH OUT
[2019-04-16 20:00] VITALS: BP 154/74
[2019-04-16 21:24] LABS: CKMB 1.3 U/L (0.0-3.6); CREATINE KINASE 57 UL (21-215); TROPONIN-I 0.031 ng/mL (0.000-0.060)
[2019-04-17] VITALS: BP 151/53
[2019-04-17 04:00] VITALS: BP 162/62
--- NOTE | 2019-04-17 04:28 | NUR ---
I have reviewed this patient and I concur with the Shift Assessment completed by the Licensed Practical Nurse today this shift.
[2019-04-17 05:45] LABS: CALC OSMOLALITY 274 mosm/kg (275-300); CALCIUM 8.2 mg/dL (8.5-10.1); CARBON DIOXIDE 37.9 mmol/L (21.0-32.0); CHLORIDE - SERUM 96 mmol/L (98-107); CREATININE - SERUM 0.7 mg/dL (0.6-1.3); GLUCOSE 106 mg/dL (74-106); SODIUM 137 mmol/L (136-145); UREA NITROGEN 15 mg/dL (7-18); eGFR NON AFRICAN AMERICAN 90 mL/min (90-120)
[2019-04-17 05:49] LABS: POTASSIUM - SERUM 4.2 mmol/L (3.5-5.1)
[2019-04-17 07:18] LABS: BASOPHILS 0.3 % (0-2); EOSINOPHILS 1.6 % (0-7); HEMATOCRIT 40.3 % (36.0-48.0); HEMOGLOBIN 12.1 g/dL (12-16); IMMATURE GRANULOCYTES 0.7 % (0-5); LYMPHOCYTES 10.3 % (15-50); MCH 23.4 pg (26.0-34.0); MCV 77.8 fL (80.0-100.0); MEAN PLATELET VOLUME 8.4 fL (7.4-10.4); MONOCYTES 8.8 % (2-11); NEUTROPHILS 78.3 % (40-80); PLATELET COUNT 235 10x3/uL (130-400); RBC 5.18 10x6/uL (4.00-5.40); RDW 19.2 % (11.5-14.5); WBC 12.3 10x3/uL (4.8-10.8)
--- NOTE | 2019-04-17 07:36 | NUR ---
A/A/OX3. SITTING UP IN BED BRUSHING HAIR WITH NO REQUESTS VOICED. REMAINS NPO FOR CATH TODAY AND PT IS AWARE AND UNDERSTANDS THIS. 02 ON VIA N/C AT 3 L/M WITH SOME VISIBLE SOB BUT PULSE OX READING IS 93. ASSESSMENT COMPLETED AND WILL CONTINUE POC. CALL LIGHT IN REACH AND BED IN LOW POSITION. VISITOR AT BEDSIDE.
[2019-04-17 09:46] VITALS: BP 149/76
[2019-04-17 11:33] VITALS: Ht 157.5 cm; Wt 101.6 kg
[2019-04-17 16:00] VITALS: BP 122/50
--- NOTE | 2019-04-17 19:29 | NUR ---
RESTING QUIETLY AT THIS TIME. PRESSURE DEVICE REMAINS ON RIGHT GROIN DUE TO SOME OOZING OF SMALL AMT OF BLOOD WHEN REMOVED. PEDAL PULSES PALPABLE. PLACED ON BEDPAN AND VOIDED SMALL AMT.
--- NOTE | 2019-04-17 19:40 | NUR ---
REPORT RECEIVED, WILL CONTINUE POC. PATIENT IS AAOX4, IN HIGH FOWLERS POSITION. NO S/S OF DISTRESS, RR EVEN AND UNLABORED ON 3L O2 VIA NC. PATIENT DENIES NEEDS AT THIS TIME. PIV TO RT AC, SL, PATENT, DRSG C/D/I. PRESSURE DEVICE TO GROIN STILL IN PLACE DUE TO SLIGHT BLEEDING FROM CATH SITE. CL IN REACH, BED LOCKED AND LOWERED. WILL CTM.
[2019-04-17 20:00] VITALS: BP 137/51
[2019-04-18] VITALS: BP 125/52
--- NOTE | 2019-04-18 00:04 | NUR ---
PT REQUESTING NICOTINE PATCH AND C/O PAIN. INFORMED PATIENT THAT SHE WAS GIVEN HER NICOTINE PATCH THIS AM, WHICH IS WHEN ITS SCHEDULED. PATIENT SAID IT MUST HAVE COME OFF DURING HER SHOWER EARLIER TODAY BEFORE HER CATH. APPLIED ANOTHER NICTOTINE PATCH AND PLACED ON PTS LEFT SHOULER, INITIALED, TIMED AND DATED. ADMINISTERED PRN DILAUDID FOR PAIN PER ORDERS.
[2019-04-18 04:00] VITALS: BP 124/47
[2019-04-18 05:26] LABS: BASOPHILS 0.2 % (0-2); EOSINOPHILS 0.8 % (0-7); HEMATOCRIT 38.8 % (36.0-48.0); HEMOGLOBIN 11.5 g/dL (12-16); IMMATURE GRANULOCYTES 0.5 % (0-5); LYMPHOCYTES 13.8 % (15-50); MCH 23.2 pg (26.0-34.0); MCHC 29.6 g/dL (31.0-37.0); MCV 78.2 fL (80.0-100.0); MEAN PLATELET VOLUME 8.2 fL (7.4-10.4); MONOCYTES 7.4 % (2-11); NEUTROPHILS 77.3 % (40-80); PLATELET COUNT 221 10x3/uL (130-400); RBC 4.96 10x6/uL (4.00-5.40); RDW 19.1 % (11.5-14.5); WBC 10.7 10x3/uL (4.8-10.8)
--- NOTE | 2019-04-18 05:30 | NUR ---
PT IS COUGHING UP BLOOD TINGED SPUTUM. NO S/S OF DISTRESS, RR LABORED ON EXERTION. LUNG SOUNDS DIMINISHED IN RT AND LT LOBES.
[2019-04-18 05:54] LABS: CALC OSMOLALITY 273 mosm/kg (275-300); CALCIUM 8.4 mg/dL (8.5-10.1); CARBON DIOXIDE 34.4 mmol/L (21.0-32.0); CHLORIDE - SERUM 96 mmol/L (98-107); CREATININE - SERUM 0.7 mg/dL (0.6-1.3); GLUCOSE 91 mg/dL (74-106); POTASSIUM - SERUM 3.9 mmol/L (3.5-5.1); SODIUM 136 mmol/L (136-145); UREA NITROGEN 17 mg/dL (7-18); eGFR NON AFRICAN AMERICAN 90 mL/min (90-120)
--- NOTE | 2019-04-18 07:04 | NUR ---
I have reviewed this patient and I concur with the Shift Assessment completed by the Licensed Practical Nurse today this shift.
--- NOTE | 2019-04-18 08:32 | NUR ---
22 GAUGE IV PLACED TO RIGHT FOREARM X 1 STICK. GOOD BLOOD RETURN, EASY FLUSH. TOLERATED IV PLACEMENT WELL. TAPED, DATED, AND SECURED. 20 GAGUE IV REMOVED FROM RIGHT FOREARM. CATHETER TIP INTACT. IV WOULD NOT FLUSH. 2X2 GAUZE APPLIED AND SECURED WITH TAPE.
[2019-04-18 08:54] VITALS: BP 158/49
--- NOTE | 2019-04-18 10:17 | NUR ---
20 GAUGE IV PLACED TO LEFT FOREARM X 1 STICK. GOOD BLOOD RETURN, EASY FLUSH. 20 GAUGE IV NEEDED FOR CTA OF CHEST. PATIENT TOLERATED IV PLACEMENT WELL. IV DATED AND SECURED. NO DISTRESS.
--- NOTE | 2019-04-18 10:20 | NUR ---
SPOKE WITH SAMANTHA IN XRAY AND PATIENT IS READY FOR CTA OF CHEST. RADIOLOGY ON THERE WAY TO GET PATIENT NOW.
--- NOTE | 2019-04-18 10:28 | NUR ---
PATIENT LEFT UNIT VIA WHEELCHAIR AT THIS TIME FOR CTA. NO DISTRESS UPON LEAVING UNIT.
--- NOTE | 2019-04-18 10:46 | NUR ---
FINISHED AMBULATING WITH PT. SITTING TO SIDE OF BED. MEDICATED FOR PAIN AT THIS TIME. NO DISTRESS.
[2019-04-18 12:00] VITALS: BP 91/37
--- NOTE | 2019-04-18 13:00 | NUR ---
RESTING IN BED. NO DISTRESS. CALL LIGHT WITHIN REACH.
--- NOTE | 2019-04-18 14:30 | NUR ---
MEDICATED FOR PAIN AT THIS TIME. NO DISTRESS.
[2019-04-18 16:00] VITALS: BP 118/47
--- NOTE | 2019-04-18 16:30 | NUR ---
AMBULATING AROUND ROOM. NO DISTRESS. DENIES NEEDS. CALL LIGHT WITHIN REACH.
--- NOTE | 2019-04-18 19:00 | NUR ---
REPORT RECEIVED. PT UP IN CHAIR C/O PAIN 12/09. RR EVEN AND TACHYPENIC ON 3L NC. NO S/SX OF DISTRESS NOTED AT THIS TIME. CALL LIGHT IN REACH. WILL CTM.
[2019-04-18 20:30] VITALS: BP 124/41
--- NOTE | 2019-04-18 23:30 | NUR ---
PT CALLED FOR ASSISTANCE AND STATED THAT SHE SHE THINK SHE HAD A PANIC ATTACK. PT CALMED DOWN AT THIS TIME. NO FURTHER NEDDS EXPRESSED. WILL CTM.
[2019-04-19] VITALS: BP 141/93
[2019-04-19 03:34] VITALS: BP 132/46
[2019-04-19 05:34] LABS: BASOPHILS 0.3 % (0-2); EOSINOPHILS 1.4 % (0-7); HEMATOCRIT 37.5 % (36.0-48.0); HEMOGLOBIN 11.2 g/dL (12-16); IMMATURE GRANULOCYTES 0.4 % (0-5); LYMPHOCYTES 8.4 % (15-50); MCH 23.5 pg (26.0-34.0); MCHC 29.9 g/dL (31.0-37.0); MCV 78.8 fL (80.0-100.0); MEAN PLATELET VOLUME 8.3 fL (7.4-10.4); MONOCYTES 8.3 % (2-11); NEUTROPHILS 81.2 % (40-80); PLATELET COUNT 205 10x3/uL (130-400); RBC 4.76 10x6/uL (4.00-5.40); RDW 18.7 % (11.5-14.5)
[2019-04-19 06:11] LABS: ANION GAP 8.7 mmol/L (8-16); CALCIUM 8.3 mg/dL (8.5-10.1); CARBON DIOXIDE 33.9 mmol/L (21.0-32.0)
[2019-04-19 06:12] LABS: CREATININE - SERUM 0.9 mg/dL (0.6-1.3); POTASSIUM - SERUM 4.6 mmol/L (3.5-5.1)
[2019-04-19 10:48] VITALS: BP 150/48
--- NOTE | 2019-04-19 11:45 | NUR ---
MEDICATED FOR PAIN AND NAUSEA AT THIS TIME. NO DISTRESS. PATIENT PLACED ON BIPAP AT THIS TIME. CALL LIGHT WITHIN REACH.
--- NOTE | 2019-04-19 12:55 | NUR ---
FLONASE STARTED AT THIS TIME. PATIENT SITTING TO SIDE OF BED. NO DISTRESS. CALL LIGHT WITHIN REACH.
[2019-04-19 15:24] VITALS: BP 154/51
--- NOTE | 2019-04-19 16:27 | NUR ---
MEDICATED FOR PAIN. FRESH ICE WATER PROVIDED. NO DISTRESS.
--- NOTE | 2019-04-19 18:10 | NUR ---
MEDICATED FOR PAIN AND NAUSEA. NO DISTRESS.
[2019-04-19 18:27] VITALS: BP 116/60
--- NOTE | 2019-04-19 19:10 | NUR ---
REPORT RECEIVED. BEDSIDE SHIFT REPORT COMPLETE. PT UP IN BED RR EVEN AN UNLABORED, ON 6L NC, AT THIS TIME. DENIES NEEDS. NO S/SX OF DISTRESS OBSERVED. CALL LIGHT IN REACH, WILL CTM.
[2019-04-19 20:00] VITALS: BP 115/49
[2019-04-20] VITALS: BP 119/53
[2019-04-20 04:00] VITALS: BP 108/41
[2019-04-20 05:27] LABS: BASOPHILS 0.2 % (0-2); EOSINOPHILS 1.5 % (0-7); HEMOGLOBIN 11.3 g/dL (12-16); IMMATURE GRANULOCYTES 0.4 % (0-5); MCH 23.2 pg (26.0-34.0); MCV 79.9 fL (80.0-100.0); MEAN PLATELET VOLUME 8.4 fL (7.4-10.4); MONOCYTES 8.4 % (2-11); NEUTROPHILS 71.5 % (40-80); PLATELET COUNT 213 10x3/uL (130-400); RBC 4.88 10x6/uL (4.00-5.40); RDW 19.1 % (11.5-14.5); WBC 9.3 10x3/uL (4.8-10.8)
[2019-04-20 05:42] LABS: ANION GAP 4.9 mmol/L (8-16); CALCIUM 8.4 mg/dL (8.5-10.1); CARBON DIOXIDE 38.1 mmol/L (21.0-32.0)
[2019-04-20 12:01] VITALS: BP 127/45
--- NOTE | 2019-04-20 13:57 | NUR ---
Nutrition Follow-up: Decreased appetite possibly 2/2 pain. Denies N/V. C/o constipation. Discussed with nursing; noted Miralax added. Diet: Cardiac PO intake: 50-100% Wt: 224# (04/17) Last BM: 04/16 per pt Labs noted: Na 134 Meds noted: HCTZ, Lasix, Zofran, Miralax -Continue current diet as tolerated. -Monitor wt. -RD following.
--- NOTE | 2019-04-20 15:51 | NUR ---
I have reviewed this patient and I concur with the Shift Assessment completed by the Licensed Practical Nurse today this shift.
[2019-04-20 16:00] VITALS: BP 122/41
--- NOTE | 2019-04-20 19:48 | NUR ---
EVENIING ROUNDS COMPLETE. PT SITTING UP IN BED, AAOX4. NO SIGNS OF DISTRESS. PT DENIES ANY PAIN OR NEEDS AT THIS TIME. CL IN REACH, BED IN LOWEST POSITION.
[2019-04-20 20:16] VITALS: BP 146/75
[2019-04-21 00:28] VITALS: BP 132/50
[2019-04-21 05:30] VITALS: BP 131/57
[2019-04-21 10:47] VITALS: BP 151/53
[2019-04-21 12:41] VITALS: BP 152/56
[2019-04-21 16:00] VITALS: BP 162/55
--- NOTE | 2019-04-21 18:15 | NUR ---
I have reviewed this patient and I concur with the Shift Assessment completed by the Licensed Practical Nurse today this shift.
--- NOTE | 2019-04-21 19:28 | NUR ---
EVENING ROUND COMPLETE, PT SITTING ON SIDE OF BED. AAOX4. FAMILY AT BEDSIDE. NO SIGNS OF DISTRESS. PT DENIES ANY NEEDS AT THIS TIME. CL IN REACH, BED IN LOWEST POSITION.
[2019-04-21 21:20] VITALS: BP 114/40
[2019-04-22] VITALS: BP 127/42
[2019-04-22 05:01] VITALS: BP 159/53
[2019-04-22 06:12] LABS: BASOPHILS 0.2 % (0-2); EOSINOPHILS 1.8 % (0-7); HEMOGLOBIN 11.3 g/dL (12-16); IMMATURE GRANULOCYTES 0.3 % (0-5); LYMPHOCYTES 10.6 % (15-50); MCH 23.3 pg (26.0-34.0); MCHC 29.7 g/dL (31.0-37.0); MCV 78.4 fL (80.0-100.0); MEAN PLATELET VOLUME 8.8 fL (7.4-10.4); MONOCYTES 8.7 % (2-11); NEUTROPHILS 78.4 % (40-80); PLATELET COUNT 205 10x3/uL (130-400); RBC 4.85 10x6/uL (4.00-5.40); RDW 18.9 % (11.5-14.5); WBC 8.7 10x3/uL (4.8-10.8)
[2019-04-22 06:44] LABS: CALC OSMOLALITY 278 mosm/kg (275-300); CALCIUM 8.8 mg/dL (8.5-10.1); CARBON DIOXIDE 39.8 mmol/L (21.0-32.0); CHLORIDE - SERUM 98 mmol/L (98-107); CREATININE - SERUM 0.5 mg/dL (0.6-1.3); GLUCOSE 99 mg/dL (74-106); MAGNESIUM - SERUM 2.2 mg/dL (1.8-2.4); PHOSPHOROUS 4.5 mg/dL (2.5-4.9); POTASSIUM - SERUM 4.5 mmol/L (3.5-5.1); SODIUM 139 mmol/L (136-145); UREA NITROGEN 14 mg/dL (7-18); eGFR NON AFRICAN AMERICAN > 90 mL/min (90-120)
--- NOTE | 2019-04-22 08:20 | NUR ---
RECIEVED REPORT. PATIENT IS RESTING QUIETLY IN BED AT THIS TIME. DENIES ANY NEEDS.
[2019-04-22 10:22] VITALS: BP 156/58
--- NOTE | 2019-04-22 12:03 | MORECARE ---
CASE MANAGEMENT DISCHARGE SUMMARY PATIENT: RUFINA EHRNANDEZ UNIT: [id number] ADM DATE: 04/16/19 AGE: 63 : 59 SEX: F ROOM/BED: D.2108 AUTHOR: CARMINE ORR PHYSICIAN: REFERRING PHYSICIAN: ERUM NIÑO MD DATE OF SERVICE: 04/22/19 Discharge Plan Patient Name: RUFINA HERNANDEZ Facility: [facility]:[place] : 1955 Planned Disposition: Home Anticipated Discharge Date: Discharge Date: Expected LOS: Initial Reviewer: [email or web address] Initial Review Date: 04/16/2019 Generated: 04/22/19 1:02 pm Patient Name: RUFINA HERNANDEZ Page 43540 at 1203 All edits/amendments must be made on the electronic document DICTATION DATE: 04/22/191201 GENERAL PRACTICE: GONZALEZ 04/22/19 1202 RPT#: [id number] DC DATE: STATUS: ADM IN [facility] [address] [place] [address] END OF REPORT
--- NOTE | 2019-04-22 12:12 | MORECARE ---
CASE MANAGEMENT DISCHARGE SUMMARY PATIENT: RUFINA HERNANDEZ UNIT: [id number] ADM DATE: 04/16/19 AGE: 63 : 59 SEX: F ROOM/BED: D.2104 AUTHOR: CARMINE ORR PHYSICIAN: REFERRING PHYSICIAN: ERUM NIÑO MD DATE OF SERVICE: 04/22/19 Discharge Plan Patient Name: RUFINA HERNANDEZ Facility: [facility]:[place] : 1955 Planned Disposition: Home Anticipated Discharge Date: Discharge Date: Expected LOS: Initial Reviewer: [id number] Initial Review Date: 04/16/2019 Generated: 04/22/19 1:12 pm Last DP export: 04/22/19 11:03 a Patient Name: RUFINA HERNANDEZ Page 27221 at 1212 All edits/amendments must be made on the electronic document DICTATION DATE: 04/22/19 1212 FISHERY DIVISION CHIEF: GONZALEZ 04/22/19 1212 RPT#: [id number] DC DATE: STATUS: ADM IN [facility] [address] [place] [address] END OF REPORT
--- NOTE | 2019-04-22 12:36 | MORECARE ---
CASE MANAGEMENT DISCHARGE SUMMARY PATIENT: RUFINA HERNANDEZ UNIT: [id number] ADM DATE: 04/16/19 AGE: 63 : 59 SEX: F ROOM/BED: D.2102 AUTHOR: CARMINE ORR PHYSICIAN: REFERRING PHYSICIAN: ERUM NIÑO MD DATE OF SERVICE: 04/22/19 Discharge Plan Patient Name: RUFINA HERNANDEZ Facility: [facility]:[place] : 1955 Planned Disposition: Home Anticipated Discharge Date: Discharge Date: Expected LOS: Initial Reviewer: [email or web address] Initial Review Date: 04/16/2019 Generated: 04/22/19 1:36 pm External Providers External Provider: [facility] Next Contact Date: 04/22/2019 Service Request Date: Service Type: Resolution: Reviewer: Comments: Last DP export: 04/22/19 11:12 a Patient Name: RUFINA HERNANDEZ Page 29534 at 1236 All edits/amendments must be made on the electronic document DICTATION DATE: 04/22/19 1236 SYSTEM MANAGER: GONZALEZ 04/22/19 1236 RPT#: [id number] DC DATE: STATUS: ADM IN [facility] [address] [place] [address] END OF REPORT
--- NOTE | 2019-04-22 12:45 | MORECARE ---
CASE MANAGEMENT DISCHARGE SUMMARY PATIENT: RUFINA HERNANDEZ UNIT: [id number] ADM DATE: 04/16/19 AGE: 63 : 59 SEX: F ROOM/BED: D.210 AUTHOR: CARMINE ORR PHYSICIAN: REFERRING PHYSICIAN: ERUM NIÑO MD DATE OF SERVICE: 04/22/19 Discharge Plan Patient Name: RUFINA HERNANDEZ Facility: [facility]:[place] : 1955 Planned Disposition: Home Anticipated Discharge Date: 04/23/19 Discharge Date: Expected LOS: 7 Initial Reviewer: [email or web address] Initial Review Date: 04/16/2019 Generated: 04/22/19 1:44 pm Comments DCP- Discharge Planning Updated by [email or web address]: Martin Mercado on 04/22/19 11:[address] Patient Name: RUFINA HERNANDEZ Admission Status: ER Accout number: [id number] Admission Date: 04-16-2019 : 1955 Admission Diagnosis: Attending: ALO Current LOS: 6 Anticipated DC Date: 04-23-2019 Planned Disposition: Home Primary Insurance: MEDICAID [place] Discharge Planning Comments: Erp Technical Lead: Martin Lackey DP export: 04/22/19 11:36 a Patient Name: RUFINA HERNANDEZ Page 67849 at 1245 All edits/amendments must be made on the electronic document DICTATION DATE: 04/22/19 1244 FENDER MECHANIC: GONZALEZ 04/22/19 1244 RPT#: [id number] DC DATE: STATUS: ADM IN [facility] [address] [place] [address] END OF REPORT
--- NOTE | 2019-04-22 12:53 | MORECARE ---
CASE MANAGEMENT DISCHARGE SUMMARY PATIENT: RUFINA HERNANDEZ UNIT: [id number] ADM DATE: 04/16/19 AGE: 63 : 59 SEX: F ROOM/BED: D.3012 AUTHOR: DOMINGA,DOC PHYSICIAN: REFERRING PHYSICIAN: ERUM NIÑO MD DATE OF SERVICE: 04/22/19 Discharge Plan Patient Name: RUFINA HERNANDEZ Facility: [facility]:[place] : 1955 Planned Disposition: Home Anticipated Discharge Date: 04/23/19 Discharge Date: Expected LOS: 7 Initial Reviewer: [email or web address] Initial Review Date: 04/16/2019 Generated: 04/22/19 1:52 pm Comments DCP- Discharge Planning Updated by [email or web address]: Martin Mercado on 04/22/19 11:[address] Patient Name: RUFINA HERNANDEZ Admission Status: ER Accout number: [id number] Admission Date: 04-16-2019 : 1955 Admission Diagnosis: Attending: ALO Current LOS: 6 Anticipated DC Date: 04-23-2019 Planned Disposition: Home Primary Insurance: MEDICAID [place] Discharge Planning Comments: CM MET WITH PT IN ROOM TO DISCUSS DISCHARGE PLANNING AND NEEDS. PT REPORTS LIVING AT HOME INDEPENDENTLY WITH HER ADULT SON AND DAUGHTER. PT HAS NO MEDICAL EQUIPMENT; PT HAS A CPAP THAT DOES NOT WORK AND HAS NOT HAD A SLEEP STUDY IN YEARS. PT WOULD LIKE TO USE [facility] FOR HER MEDICAL EQUIPMENT IT IS THE CLOSEST TO HER HOME, CHOICE SIGNED. PT HAS NO OUTSIDE SERVICES ASSISTING IN THE HOME. CM DISCUSSED AVAILABILITY OF HOME HEALTH, REHAB SERVICES AND MEDICAL EQUIPMENT. PT DENIES DISCHARGE NEEDS OTHER THAN OXYGEN AND NEBULIZER, REPORTS HER SON OR DAUGHTER WILL PICK HER UP FOR DISCHARGE HOME. CM NOTIFIED DR. MICHAUD OF PT NOT HAVING A WORKING CPAP AT HOME. CM CALLED [facility], , SPOKE TO MONIKA WHO TOOK OXYGEN AND NEBULIZER ORDER. CM FAXED OXYGEN AND NEBULIZER ORDERS TO [facility] AT [phone]. [facility] TO ARRANGE PORTABLE OXYGEN TO HOPITAL ROOM AND HOME OXYGEN AND NEBULIZER FOR HOME DELIVERY AFTER PT ARRIVES HOME. PT CURRENTLY ON 8 LITERS NASAL CANNULA OXYGEN; [facility] WILL NEED TO KNOW OXYGEN LITER FLOW TO COMPLETE OXYGEN ORDER. NOTIFY [facility] OF REQUIRED LITER FLOW FOR OXYGEN ORDER COMPLETION AT [phone]. Assistant Professor Of Religion: Martin Lackey DP export: 04/22/19 11:45 a Patient Name: RUFINA HERNANDEZ Page 78797 at 1253 All edits/amendments must be made on the electronic document DICTATION DATE: 04/22/19 125 COMMUNITY LIVING INSTRUCTOR: GONZALEZ 04/22/19 1252 RPT#: [id number] DC DATE: STATUS: ADM IN [facility] [address] [place] [address] END OF REPORT
[2019-04-22 13:53] VITALS: BP 142/45
--- NOTE | 2019-04-22 14:00 | NUR ---
PATIENT REPORTS CONCERNS SHE HAS ABOUT HER HOUSE AND HER CHILDREN. SHE REPORTS FEAR THAT HER WATER WILL GET SHUT OFF, AND THAT SHE IS THE ONLY ONE PAYING THE BILLS RIGHT NOW. SHE IS ON 6 LITERS O2, AND HAS A SATURATION OF 90 TO 92 %. RESPIRATORY THERAPY IS AWARE THAT WE ARE TRYING TO WEEN THE O2 A LITTLE LOWER.
[2019-04-22 16:57] VITALS: BP 149/47
--- NOTE | 2019-04-22 17:40 | NUR ---
PATIENT IS SITTING UP IN BED. SHE HAS HAD FAMILY VISITING AND IS ALERT AND AWAKE, AND DENIES ANY NEEDS AT THIS TIME.
--- NOTE | 2019-04-22 19:43 | NUR ---
EVENING ROUNDS COMPLETE, PT SITTING UP ON SIDE OF BED. AAOX4. PT DENIES ANY NEEDS AT THIS TIME. REQUEST PAIN MEDICATION TO BE BROUGHT IN WITH EVENING MEDICATION. TEACHING ON PROCESS TO GET O2 DOWN TO 4L OR LESS. PT UNDERSTOOD. PT STATES SHE IS READY TO GO HOME. NO OTHER NEEDS NOTED AT THIS TIME. CL IN REACH, BED IN LOWEST POSITION.
[2019-04-22 20:00] VITALS: BP 135/58
--- NOTE | 2019-04-22 23:00 | NUR ---
PT O2 LOWERED TO 5.5L VIA NC. O2 SAT AT 95% AT THIS TIME. CL IN REACH, BED IN LOWEST POSITION.
[2019-04-23] VITALS: BP 166/55
--- NOTE | 2019-04-23 | NUR ---
PT O2 LOWERED TO 5L VIA NC. O2 SAT AT 94%. CL IN REACH, BED IN LOWEST POSITION.
--- NOTE | 2019-04-23 00:40 | NUR ---
PT O2 LOWERED TO 4.5L VIA BIPAP. PT O2 SAT AT 96%. CL IN REACH, BED IN LOWEST POSITION.
--- NOTE | 2019-04-23 01:30 | NUR ---
PT O2 LOWERED TO 4L NC. PT O2 SAT AT 93%. CL IN REACH, BED IN LOWEST POSITION.
[2019-04-23 04:00] VITALS: BP 134/49
--- NOTE | 2019-04-23 04:50 | NUR ---
PT REMAINED AT 4L NC. O2 SAT STAYING BETWEEN 90%-94%. PT STILL C/O PAIN, WILL WAIT UNTIL TIME FOR DILAUDID REQUESTED BY PT. NO DISTRESS NOTED AT THIS TIME. PT HAS PERSISTANT COUGH, NO PHLEM NOTED AT THIS TIME. CL IN REACH, BED IN LOWEST POSITION. PT DENIES ANY OTHER NEEDS AT THIS TIME.
--- NOTE | 2019-04-23 07:53 | NUR ---
SITTING UP AT SIDE OF BED. C/O BACK PAIN DUE TO COUGHING. WILL PROVIDE PAIN MEDICATION IF ALLOWED. ON @ 4/NC. REVIEWED PLAN FOR TODAY. A&O X4.
[2019-04-23 08:48] VITALS: BP 161/44
[2019-04-23] MEDS ORDERED: BROVANA15 MCG/2 M INH (09:38)
[2019-04-23] MEDS ORDERED: IPRAT-ALBUT 0.5-3 ML UPD (09:39)
[2019-04-23] MEDS ORDERED: VIBRAMYCIN 100100 MG PO (09:42)
--- NOTE | 2019-04-23 12:52 | MORECARE ---
CASE MANAGEMENT DISCHARGE SUMMARY PATIENT: RUFINA HERNANDEZ UNIT: [id number] ADM DATE: 04/16/19 AGE: 63 : 59 SEX: F ROOM/BED: D.0629 AUTHOR: DOMINGA,DOC PHYSICIAN: REFERRING PHYSICIAN: ERUM NIÑO MD DATE OF SERVICE: 04/23/19 Discharge Plan Patient Name: RUFINA HERNANDEZ Facility: [facility]:[place] : 1955 Planned Disposition: Home Anticipated Discharge Date: 04/23/19 Discharge Date: Expected LOS: 7 Initial Reviewer: [id number] Initial Review Date: 04/16/2019 Generated: 04/23/19 1:52 pm Comments DCP- Discharge Planning Updated by [email or web address]: Martin Mercado on 04/22/19 11:[address] Patient Name: RUFINA HERNANDEZ Admission Status: ER Accout number: [id number] Admission Date: 04-16-2019 : 1955 Admission Diagnosis: Attending: ALO Current LOS: 6 Anticipated DC Date: 04-23-2019 Planned Disposition: Home Primary Insurance: MEDICAID [place] Discharge Planning Comments: CM MET WITH PT IN ROOM TO DISCUSS DISCHARGE PLANNING AND NEEDS. PT REPORTS LIVING AT HOME INDEPENDENTLY WITH HER ADULT SON AND DAUGHTER. PT HAS NO MEDICAL EQUIPMENT; PT HAS A CPAP THAT DOES NOT WORK AND HAS NOT HAD A SLEEP STUDY IN YEARS. PT WOULD LIKE TO USE [facility] FOR HER MEDICAL EQUIPMENT IT IS THE CLOSEST TO HER HOME, CHOICE SIGNED. PT HAS NO OUTSIDE SERVICES ASSISTING IN THE HOME. CM DISCUSSED AVAILABILITY OF HOME HEALTH, REHAB SERVICES AND MEDICAL EQUIPMENT. PT DENIES DISCHARGE NEEDS OTHER THAN OXYGEN AND NEBULIZER, REPORTS HER SON OR DAUGHTER WILL PICK HER UP FOR DISCHARGE HOME. CM NOTIFIED DR. MICHAUD OF PT NOT HAVING A WORKING CPAP AT HOME. CM CALLED [facility], , SPOKE TO MONIKA WHO TOOK OXYGEN AND NEBULIZER ORDER. CM FAXED OXYGEN AND NEBULIZER ORDERS TO [facility] AT [phone]. [facility] TO ARRANGE PORTABLE OXYGEN TO HOPITAL ROOM AND HOME OXYGEN AND NEBULIZER FOR HOME DELIVERY AFTER PT ARRIVES HOME. PT CURRENTLY ON 8 LITERS NASAL CANNULA OXYGEN; [facility] WILL NEED TO KNOW OXYGEN LITER FLOW TO COMPLETE OXYGEN ORDER. NOTIFY [facility] OF REQUIRED LITER FLOW FOR OXYGEN ORDER COMPLETION AT [phone]. Agriscience Technology Instructor: Martin Lackey DP export: 04/22/19 11:52 a Patient Name: RUFINA HERNANDEZ Page 83654 at 1252 All edits/amendments must be made on the electronic document DICTATION DATE: 04/23/19 125 BLENDER: GONZALEZ 04/23/19 1252 RPT#: [id number] DC DATE: STATUS: ADM IN [facility] [address] [place] [address] END OF REPORT
[2019-04-23 13:45] VITALS: BP 126/36
--- NOTE | 2019-04-23 14:39 | MORECARE ---
CASE MANAGEMENT DISCHARGE SUMMARY PATIENT: RUFINA HERNANDEZ UNIT: [id number] ADM DATE: 04/16/19 AGE: 63 : 59 SEX: F ROOM/BED: D.2103 AUTHOR: DOMINGA,DOC PHYSICIAN: REFERRING PHYSICIAN: ERUM NIÑO MD DATE OF SERVICE: 04/23/19 Discharge Plan Patient Name: RUFINA HERNANDEZ Facility: [facility]:[place] : 1955 Planned Disposition: Home Anticipated Discharge Date: 04/23/19 Discharge Date: Expected LOS: 7 Initial Reviewer: [email or web address] Initial Review Date: 04/16/2019 Generated: 04/23/19 3:39 pm Comments DCP- Discharge Planning Updated by [email or web address]: Martin Mercado on 04/23/19 11:[address] Patient Name: RUFINA HERNANDEZ Encounter No: [id number] : 1955 Primary Insurance: MEDICAID [place] Anticipated DC Date: 04-23-2019 Planned Disposition: Home: DCP follow-up note: CM SPOKE TO MALINA SINGER WHO INFORMED CM THAT THEY ARE EXPECTING OXYGEN AND NEBULIZER ORDERS AT THEIR OFFICE TO SIGN. CM RECEIVED DISCHARGE ORDERS, MET WITH PT IN ROOM WHO REPORTS SHE NEEDS OXYGEN AND NEBULIZER AND HAS NOT RECEIVED IT YET. PT WANTS TO SPEAK TO DR. MICHAUD ABOUT SPOT ON LUNG BEFORE LEAVING TODAY. PT REPORTS SHE HAS NO OTHER DISHCHARGE NEEDS, HER MOTHER IS HERE TO TAKE HER HOME TODAY AFTER SHE GETS OXYGEN AND NEBLULIZER. CM SPOKE TO DR. MICHAUD VIA PHONE WHO WILL SEE PT WHEN HE IS ABLE TODAY AND THAT PT TOLD HIM THAT THE CPAP SHE HAS CURRENTLY DOES WORK AND ONLY NEEDS NEW FILTER. PT WILL NOT NEED TRILOGY AND [facility]. CM NOTIFIED PT. CM CALLED [facility], , LEFT MESSAGE FROM [employer] WHO IS PROCESSING ORDER FOR OXYGEN AND NEBULIZER, NOTIFIED THAT PT IS ON 4 LITERS NOW AND IS READY TO DISCHARGE, NEEDING OXYGEN TO HOSPITAL FOR DISCHARGE HOME TODAY WITH REQUESTED HOME DELIVERY OF HOME OXYGEN UNIT AND NEBULIZER. [facility] TO DELIVER PORTABLE OXYGEN TO ROOM TODAY AND HOME OXYGEN AND NEBULIZER FOR HOME DELIVERY AFTER PT ARRIVES HOME. Knitting Inspector: Martin Mercado DCP- Discharge Planning Updated by [email or web address]: Martin Mercado on 04/22/19 11:[address] Patient Name: RUFINA HERNANDEZ Admission Status: ER Accout number: [id number] Admission Date: 04-16-2019 : 1955 Admission Diagnosis: Attending: ALO Current LOS: 6 Anticipated DC Date: 04-23-2019 Planned Disposition: Home Primary Insurance: MEDICAID [place] Discharge Planning Comments: CM MET WITH PT IN ROOM TO DISCUSS DISCHARGE PLANNING AND NEEDS. PT REPORTS LIVING AT HOME INDEPENDENTLY WITH HER ADULT SON AND DAUGHTER. PT HAS NO MEDICAL EQUIPMENT; PT HAS A CPAP THAT DOES NOT WORK AND HAS NOT HAD A SLEEP STUDY IN YEARS. PT WOULD LIKE TO USE [facility] FOR HER MEDICAL EQUIPMENT IT IS THE CLOSEST TO HER HOME, CHOICE SIGNED. PT HAS NO OUTSIDE SERVICES ASSISTING IN THE HOME. CM DISCUSSED AVAILABILITY OF HOME HEALTH, REHAB SERVICES AND MEDICAL EQUIPMENT. PT DENIES DISCHARGE NEEDS OTHER THAN OXYGEN AND NEBULIZER, REPORTS HER SON OR DAUGHTER WILL PICK HER UP FOR DISCHARGE HOME. CM NOTIFIED DR. MICHAUD OF PT NOT HAVING A WORKING CPAP AT HOME. CM CALLED [facility], , SPOKE TO MONIKA WHO TOOK OXYGEN AND NEBULIZER ORDER. CM FAXED OXYGEN AND NEBULIZER ORDERS TO [facility] AT [phone]. [facility] TO ARRANGE PORTABLE OXYGEN TO HOPITAL ROOM AND HOME OXYGEN AND NEBULIZER FOR HOME DELIVERY AFTER PT ARRIVES HOME. PT CURRENTLY ON 8 LITERS NASAL CANNULA OXYGEN; [facility] WILL NEED TO KNOW OXYGEN LITER FLOW TO COMPLETE OXYGEN ORDER. NOTIFY [facility] OF REQUIRED LITER FLOW FOR OXYGEN ORDER COMPLETION AT [phone]. Knitting Inspector: Martin Mercado Last DP export: 04/23/19 11:52 a Patient Name: RUFINA HERNANDEZ Page 84171 at 1435 All edits/amendments must be made on the electronic document DICTATION DATE: 04/23/19 1432 RETOUCHER: GONZALEZ 04/23/19 1439 RPT#: [id number] DC DATE: STATUS: ADM IN [facility] [address] [place] [address] END OF REPORT
--- NOTE | 2019-04-23 15:09 | NUR ---
O2 WAS JUST DELIVERED TO PT. PT AND HER MOTHER ARE WANTING TO TALK WITH DR. MICHAUD AND WAITING FOR HIM TO MAKE ROUNDS.
--- NOTE | 2019-04-23 16:42 | NUR ---
DR MICHAUD TO SEE PATIENT AND DOES NOT WANT HER DISCHARGED TODAY. STATES THAT HER CXR IS WORSE.
[2019-04-23 18:27] VITALS: BP 122/50
--- NOTE | 2019-04-23 19:22 | NUR ---
EVENING ROUNDS COMPLETE. PT SITTING UP ON SIDE OF BED. NO SIGNS OF DISTRESS. PT DENIES ANY NEEDS AT THIS TIME. AAOX4. O2 AT 4L NC, O2 SAT 94%. CL IN REACH, BED IN LOWEST POSITION.
[2019-04-23 20:00] VITALS: BP 134/60
[2019-04-24 00:30] VITALS: BP 145/41
[2019-04-24 04:42] VITALS: BP 156/54
--- NOTE | 2019-04-24 07:00 | NUR ---
PT SITTING UP IN BED. ALERT AND ORIENTED. O2 AT 4L VIA NC. BED LOW. CL IN REACH.
--- NOTE | 2019-04-24 08:15 | MORECARE ---
CASE MANAGEMENT DISCHARGE SUMMARY PATIENT: RUFINA HERNANDEZ UNIT: [id number] ADM DATE: 04/16/19 AGE: 63 : 59 SEX: F ROOM/BED: D.210 AUTHOR: DOMINGA,DOC PHYSICIAN: REFERRING PHYSICIAN: ERUM NIÑO MD DATE OF SERVICE: 04/24/19 Discharge Plan Patient Name: RUFINA HERNANDEZ Facility: [facility]:[place] : 1955 Planned Disposition: Home Anticipated Discharge Date: 04/23/19 Discharge Date: Expected LOS: 7 Initial Reviewer: [id number] Initial Review Date: 04/16/2019 Generated: 04/24/19 9:14 am Comments DCP- Discharge Planning Updated by [email or web address]: Martin Mercado on 04/23/19 11:[address] Patient Name: RUFINA HERNANDEZ Encounter No: [id number] : 1955 Primary Insurance: MEDICAID [place] Anticipated DC Date: 04-23-2019 Planned Disposition: Home: DCP follow-up note: CM SPOKE TO MALINA SINGER WHO INFORMED CM THAT THEY ARE EXPECTING OXYGEN AND NEBULIZER ORDERS AT THEIR OFFICE TO SIGN. CM RECEIVED DISCHARGE ORDERS, MET WITH PT IN ROOM WHO REPORTS SHE NEEDS OXYGEN AND NEBULIZER AND HAS NOT RECEIVED IT YET. PT WANTS TO SPEAK TO DR. MICHAUD ABOUT SPOT ON LUNG BEFORE LEAVING TODAY. PT REPORTS SHE HAS NO OTHER DISHCHARGE NEEDS, HER MOTHER IS HERE TO TAKE HER HOME TODAY AFTER SHE GETS OXYGEN AND NEBLULIZER. CM SPOKE TO DR. MICHAUD VIA PHONE WHO WILL SEE PT WHEN HE IS ABLE TODAY AND THAT PT TOLD HIM THAT THE CPAP SHE HAS CURRENTLY DOES WORK AND ONLY NEEDS NEW FILTER. PT WILL NOT NEED TRILOGY AND [facility]. CM NOTIFIED PT. CM CALLED [email or web address], , LEFT MESSAGE FROM [employer] WHO IS PROCESSING ORDER FOR OXYGEN AND NEBULIZER, NOTIFIED THAT PT IS ON 4 LITERS NOW AND IS READY TO DISCHARGE, NEEDING OXYGEN TO HOSPITAL FOR DISCHARGE HOME TODAY WITH REQUESTED HOME DELIVERY OF HOME OXYGEN UNIT AND NEBULIZER. [email or web address] TO DELIVER PORTABLE OXYGEN TO ROOM TODAY AND HOME OXYGEN AND NEBULIZER FOR HOME DELIVERY AFTER PT ARRIVES HOME. Personnel Associate: Martin Mercado DCP- Discharge Planning Updated by [email or web address]: Martin Mercado on 04/22/19 11:[address] Patient Name: RUFINA HERNANDEZ Admission Status: ER Accout number: [id number] Admission Date: 04-16-2019 : 1955 Admission Diagnosis: Attending: ALO Current LOS: 6 Anticipated DC Date: 04-23-2019 Planned Disposition: Home Primary Insurance: MED[place]ID [place] Discharge Planning Comments: CM MET WITH PT IN ROOM TO DISCUSS DISCHARGE PLANNING AND NEEDS. PT REPORTS LIVING AT HOME INDEPENDENTLY WITH HER ADULT SON AND DAUGHTER. PT HAS NO MEDICAL EQUIPMENT; PT HAS A CPAP THAT DOES NOT WORK AND HAS NOT HAD A SLEEP STUDY IN YEARS. PT WOULD LIKE TO USE [facility] FOR HER MEDICAL EQUIPMENT IT IS THE CLOSEST TO HER HOME, CHOICE SIGNED. PT HAS NO OUTSIDE SERVICES ASSISTING IN THE HOME. CM DISCUSSED AVAILABILITY OF HOME HEALTH, REHAB SERVICES AND MEDICAL EQUIPMENT. PT DENIES DISCHARGE NEEDS OTHER THAN OXYGEN AND NEBULIZER, REPORTS HER SON OR DAUGHTER WILL PICK HER UP FOR DISCHARGE HOME. CM NOTIFIED DR. MICHAUD OF PT NOT HAVING A WORKING CPAP AT HOME. CM CALLED [facility], , SPOKE TO MONIKA WHO TOOK OXYGEN AND NEBULIZER ORDER. CM FAXED OXYGEN AND NEBULIZER ORDERS TO [facility] AT [phone]. [facility] TO ARRANGE PORTABLE OXYGEN TO HOPITAL ROOM AND HOME OXYGEN AND NEBULIZER FOR HOME DELIVERY AFTER PT ARRIVES HOME. PT CURRENTLY ON 8 LITERS NASAL CANNULA OXYGEN; [facility] WILL NEED TO KNOW OXYGEN LITER FLOW TO COMPLETE OXYGEN ORDER. NOTIFY [facility] OF REQUIRED LITER FLOW FOR OXYGEN ORDER COMPLETION AT [phone]. Personnel Associate: Martin Mercado Last DP export: 04/23/19 1:39 p Patient Name: RUFINA HERNANDEZ Page 12920 at 0815 All edits/amendments must be made on the electronic document DICTATION DATE: 04/24/19813 SUPERVISOR POLISHING: GONZALEZ 04/24/19813 RPT#: [id number] DC DATE: STATUS: ADM IN [facility] [address] [place] [address] END OF REPORT
[2019-04-24 12:01] VITALS: BP 151/52
--- NOTE | 2019-04-24 13:11 | NUR ---
Nutrition Follow-up: Good/fair PO intake. Diet: Cardiac PO intake: 50-100% No new wt; last wt: 224# (04/17) Last BM: 04/23 per chart Labs reviewed Meds noted: HCTZ, Lasix, Miralax -Continue current diet as tolerated. -Need new wt. -RD following.
[2019-04-24 14:18] VITALS: BP 117/54
--- NOTE | 2019-04-24 16:08 | NUR ---
I have reviewed this patient and I concur with the Shift Assessment completed by the Licensed Practical Nurse today this shift.
--- NOTE | 2019-04-24 16:54 | MORECARE ---
CASE MANAGEMENT DISCHARGE SUMMARY PATIENT: RUFINA HERNANDEZ UNIT: [id number] ADM DATE: 04/16/19 AGE: 63 : 59 SEX: F ROOM/BED: D.2105 AUTHOR: DOMINGA,DOC PHYSICIAN: REFERRING PHYSICIAN: ERUM NIÑO MD DATE OF SERVICE: 04/24/19 Discharge Plan Patient Name: RUFINA HERNANDEZ Facility: [facility]:[place] : 1955 Planned Disposition: Home Anticipated Discharge Date: 04/23/19 Discharge Date: Expected LOS: 7 Initial Reviewer: [id number] Initial Review Date: 04/16/2019 Generated: 04/24/19 5:54 pm Comments DCP- Discharge Planning Updated by [id number]: Martin Marshall on 04/24/19 3:[address] Patient Name: RUFINA HERNANDEZ Encounter No: [id number] : 1955 Primary Insurance: MEDICAID [place] Anticipated DC Date: 04-23-2019 Planned Disposition: Home DCP follow-up note: CM RECEIVED CALL FROM [employer], , SPOKE TO NO WHO INFORMED CM THAT PT WILL NEED NEW ABG TESTING WITHIN 2 DAYS OF DISCHARGE, PO2 WILL NEED TO BE BELOW 55 FOR PT TO QUALIFY FOR OXYGEN. PT NEEDS NEW ABG TESTING WITHIN 2 DAYS OF DISCHARGE; FAX TO [employer] AT [phone]. MARTIN MARSHALL, CASE MANAGEMENT DCP- Discharge Planning Updated by [id number]: Martin Marshall on 04/23/19 11:[address] Patient Name: RUFINA HERNANDEZ Encounter No: [id number] : 1955 Primary Insurance: MEDICAID [place] Anticipated DC Date: 04-23-2019 Planned Disposition: Home: DCP follow-up note: CM SPOKE TO MALINA SINGER WHO INFORMED CM THAT THEY ARE EXPECTING OXYGEN AND NEBULIZER ORDERS AT THEIR OFFICE TO SIGN. CM RECEIVED DISCHARGE ORDERS, MET WITH PT IN ROOM WHO REPORTS SHE NEEDS OXYGEN AND NEBULIZER AND HAS NOT RECEIVED IT YET. PT WANTS TO SPEAK TO DR. MICHAUD ABOUT SPOT ON LUNG BEFORE LEAVING TODAY. PT REPORTS SHE HAS NO OTHER DISHCHARGE NEEDS, HER MOTHER IS HERE TO TAKE HER HOME TODAY AFTER SHE GETS OXYGEN AND NEBLULIZER. CM SPOKE TO DR. MICHAUD VIA PHONE WHO WILL SEE PT WHEN HE IS ABLE TODAY AND THAT PT TOLD HIM THAT THE CPAP SHE HAS CURRENTLY DOES WORK AND ONLY NEEDS NEW FILTER. PT WILL NOT NEED TRILOGY AND WILL GET [employer] SLEEPSTUDY FOR CPAP REPLACEMENT. CM NOTIFIED PT. CM CALLED [facility], , LEFT MESSAGE FROM [employer] WHO IS PROCESSING ORDER FOR OXYGEN AND NEBULIZER, NOTIFIED THAT PT IS ON 4 LITERS NOW AND IS READY TO DISCHARGE, NEEDING OXYGEN TO HOSPITAL FOR DISCHARGE HOME TODAY WITH REQUESTED HOME DELIVERY OF HOME OXYGEN UNIT AND NEBULIZER. [facility] TO DELIVER PORTABLE OXYGEN TO ROOM TODAY AND HOME OXYGEN AND NEBULIZER FOR HOME DELIVERY AFTER PT ARRIVES HOME. Tabulating Supervisor: Martin Marshall DCP- Discharge Planning Updated by [id number]: Martin Marshall on 04/22/19 11:[address] Patient Name: RUFINA HERNANDEZ Admission Status: ER Accout number: [id number] Admission Date: 04-16-2019 : 1955 Admission Diagnosis: Attending: ALO Current LOS: 6 Anticipated DC Date: 04-23-2019 Planned Disposition: Home Primary Insurance: MEDICAID [place] Discharge Planning Comments: CM MET WITH PT IN ROOM TO DISCUSS DISCHARGE PLANNING AND NEEDS. PT REPORTS LIVING AT HOME INDEPENDENTLY WITH HER ADULT SON AND DAUGHTER. PT HAS NO MEDICAL EQUIPMENT; PT HAS A CPAP THAT DOES NOT WORK AND HAS NOT HAD A SLEEP STUDY IN YEARS. PT WOULD LIKE TO USE [facility] FOR HER MEDICAL EQUIPMENT IT IS THE CLOSEST TO HER HOME, CHOICE SIGNED. PT HAS NO OUTSIDE SERVICES ASSISTING IN THE HOME. CM DISCUSSED AVAILABILITY OF HOME HEALTH, REHAB SERVICES AND MEDICAL EQUIPMENT. PT DENIES DISCHARGE NEEDS OTHER THAN OXYGEN AND NEBULIZER, REPORTS HER SON OR DAUGHTER WILL PICK HER UP FOR DISCHARGE HOME. KENDRICK NOTIFIED DR. MICHAUD OF PT NOT HAVING A WORKING CPAP AT HOME. CM CALLED [facility], , SPOKE TO MONIKA WHO TOOK OXYGEN AND NEBULIZER ORDER. CM FAXED OXYGEN AND NEBULIZER ORDERS TO [facility] AT [phone]. [facility] TO ARRANGE PORTABLE OXYGEN TO HOPITAL ROOM AND HOME OXYGEN AND NEBULIZER FOR HOME DELIVERY AFTER PT ARRIVES HOME. PT CURRENTLY ON 8 LITERS NASAL CANNULA OXYGEN; [facility] WILL NEED TO KNOW OXYGEN LITER FLOW TO COMPLETE OXYGEN ORDER. NOTIFY [facility] OF REQUIRED LITER FLOW FOR OXYGEN ORDER COMPLETION AT [phone]. Tabulating Supervisor: Martin Lackey DP export: 04/24/19 7:15 a Patient Name: RUFINA HERNANDEZ Page 05803 at 3864 All edits/amendments must be made on the electronic document DICTATION DATE: 04/24/191653 HYDRAULIC GOVERNOR ASSEMBLER: GONZALEZ 04/24/191653 RPT#: [id number] DC DATE: STATUS: ADM IN [facility] [address] [place] [address] END OF REPORT
--- NOTE | 2019-04-24 18:41 | NUR ---
PT SITTING UP IN BED. PT HAS NO FURTHER NEEDS AT THIS TIME. BED LOW. CL IN REACH.
[2019-04-24 20:00] VITALS: BP 131/45
--- NOTE | 2019-04-24 20:00 | NUR ---
REPORT RECIEVED AND ROUNDING COMPLETE. PATIENT SITTING ON THE SIDE OF HER BED, PATIENT ASKED FOR TOWELS SO SHE COULD WASH HER HAIR. GAVE PATIENT TOWELS. PATIENT STATES SHE HAS NO OTHER NEEDS AT THIS TIME. PATIENT HAS CONT. O2 AT 4L VIA NASAL CANNULA. PAITENT SHOWS NO S/SX OF DISTRESS AT THIS TIME. PATIENT HAS BILATERAL FOREARM PIVS. BOTH PIVS PATENT AND SALINE LOCKED AT THIS TIME. PAITENT HAS BILATERAL WHEEZING AND PRODICTIVE COUGH OF THICK GREEM SPUTUM. CALL LIGHT WITHIN REACH AND BED IN LOWEST LOCKED POSITION.
[2019-04-25] VITALS (7 sets, daily range): BP systolic 121–153; BP diastolic 40–52
--- NOTE | 2019-04-25 04:41 | NUR ---
I have reviewed this patient and I concur with the Shift Assessment completed by the Licensed Practical Nurse today this shift.
[2019-04-25 04:55] LABS: BASOPHILS 0.5 % (0-2); HEMATOCRIT 38.5 % (36.0-48.0); HEMOGLOBIN 11.8 g/dL (12-16); IMMATURE GRANULOCYTES 0.5 % (0-5); LYMPHOCYTES 17.8 % (15-50); MCH 23.5 pg (26.0-34.0); MCHC 30.6 g/dL (31.0-37.0); MCV 76.7 fL (80.0-100.0); MEAN PLATELET VOLUME 8.7 fL (7.4-10.4); MONOCYTES 9.6 % (2-11); NEUTROPHILS 69.6 % (40-80); PLATELET COUNT 245 10x3/uL (130-400); RBC 5.02 10x6/uL (4.00-5.40); RDW 19.1 % (11.5-14.5); WBC 7.9 10x3/uL (4.8-10.8)
[2019-04-25 05:11] LABS: CALC OSMOLALITY 270 mosm/kg (275-300); CALCIUM 8.8 mg/dL (8.5-10.1); CARBON DIOXIDE 33.2 mmol/L (21.0-32.0); CHLORIDE - SERUM 95 mmol/L (98-107); CREATININE - SERUM 0.8 mg/dL (0.6-1.3); GLUCOSE 125 mg/dL (74-106); POTASSIUM - SERUM 4.1 mmol/L (3.5-5.1); SODIUM 133 mmol/L (136-145); UREA NITROGEN 24 mg/dL (7-18); eGFR NON AFRICAN AMERICAN 77 mL/min (90-120)
--- NOTE | 2019-04-25 08:13 | NUR ---
PATIENT IS AWAKE AND ALERT SITTING UP IN BED EATTING BREAKFAST. SHE DENIES ANY NEEDS AT THIS TIME. SHE STATES THAT SHE SHOULD BE GOING HOME TODAY. SHE IS ON 4 LITERS O2 AND HER O2 SATURATION IS 95%. SHE IS ON A CONTINUOUS PULSE OX. BEDSIDE SHIFT COMPLETED.
--- NOTE | 2019-04-25 11:45 | NUR ---
IV'S BILATERALLY HAVE BECOME INFILTRATED. WILL HAVE TO DISCONTINUE BOTH.
--- NOTE | 2019-04-25 15:20 | NUR ---
IV REMOVED FROM RIGHT AND LEFT FOREARM WITH CATHETERS INTACT. PATIENT TOLERATED. BOTH WERE INFILTRATED.
--- NOTE | 2019-04-25 19:55 | NUR ---
REPORT RECIEVED AND ROUNDING COMPLETE. PATIENT SITING UP IN BED IN HIGH FOWLERS, PATIENT STATES SHE IS A LITTLE BUMMED OUT THAT SHE HAD TO STAY AND WASNT DISCHARGED TODAY. SHE IS HOPEFULLY FOR TOMORROW. PATIENT WEARING NASAL CANNULA WITH 02 AT 4L. PATIENT SHOWS NO S/SX OF DISTRESS AT THIS TIME. PATIENT STATES SHE HAS NO NEEDS BUT REQUESTED ME BRING HER NIGHT MEDS SOON I CAN SO SHE CAN GET SOME REST TONIGHT. CALL LIGHT WITHIN REACH AND BED IN LOWEST LOCKED POSITION.
[2019-04-26 04:59] VITALS: BP 129/54
[2019-04-26 05:01] LABS: BASOPHILS 0.5 % (0-2); EOSINOPHILS 1.4 % (0-7); HEMATOCRIT 39.2 % (36.0-48.0); HEMOGLOBIN 12.2 g/dL (12-16); IMMATURE GRANULOCYTES 0.7 % (0-5); MCH 23.8 pg (26.0-34.0); MCHC 31.1 g/dL (31.0-37.0); MCV 76.4 fL (80.0-100.0); MEAN PLATELET VOLUME 8.7 fL (7.4-10.4); MONOCYTES 7.3 % (2-11); NEUTROPHILS 74.1 % (40-80); PLATELET COUNT 259 10x3/uL (130-400); RBC 5.13 10x6/uL (4.00-5.40); WBC 8.5 10x3/uL (4.8-10.8)
[2019-04-26 05:29] LABS: CALC OSMOLALITY 269 mosm/kg (275-300); CALCIUM 8.9 mg/dL (8.5-10.1); CARBON DIOXIDE 30.3 mmol/L (21.0-32.0); CHLORIDE - SERUM 95 mmol/L (98-107); CREATININE - SERUM 0.8 mg/dL (0.6-1.3); GLUCOSE 116 mg/dL (74-106); POTASSIUM - SERUM 4.6 mmol/L (3.5-5.1); SODIUM 131 mmol/L (136-145); UREA NITROGEN 29 mg/dL (7-18); eGFR NON AFRICAN AMERICAN 77 mL/min (90-120)
--- NOTE | 2019-04-26 05:32 | NUR ---
I have reviewed this patient and I concur with the Shift Assessment completed by the Licensed Practical Nurse today this shift.
--- NOTE | 2019-04-26 07:20 | NUR ---
RECIEVE REPORT. RESTING IN BED WITH EYES CLOSED. SINUS RYTHM ON TELEMETRY. NO SIGNS OF DISTRESS. CONTINUE PLAN OF CARE AND SAFETY PRECAUTIONS.
--- NOTE | 2019-04-26 09:34 | MORECARE ---
CASE MANAGEMENT DISCHARGE SUMMARY PATIENT: RUFINA HERNANDEZ UNIT: [id number] ADM DATE: 04/16/19 AGE: 63 : 59 SEX: F ROOM/BED: D.2101 AUTHOR: DOMINGA,DOC PHYSICIAN: REFERRING PHYSICIAN: ERUM NIÑO MD DATE OF SERVICE: 04/26/19 Discharge Plan Patient Name: RUFINA HERNANDEZ Facility: [facility]:[place] : 1955 Planned Disposition: Home Anticipated Discharge Date: 04/23/19 Discharge Date: Expected LOS: 7 Initial Reviewer: [id number] Initial Review Date: 04/16/2019 Generated: 04/26/19 10:34 am Comments DCP- Discharge Planning Updated by [id number]: Ca Agudelo on 04/26/19 8:[address] RICKY SINGER APN, SPOKE W/ KENDRICK. HE ADVISED IF PATIENT IS DISCHARGED TODAY SHE WILL NEED HER NEBULIZER AND HOME OXYGEN. CM ADVISED SHE MAY NEED AN UPDATED ABG. DR MICHAUD TO DETERMINE DISCHARGE DEPENDING ON HER CXR. KENDRICK SPOKE W/ EMMETT, THE PATIENT'S NURSE, TO ADVISE OF NEED FOR ABG IF SHE IS DISCHARGED TODAY PER [facility]'S INSTRUCTION. CM TO SEE THE PATIENT PER HER REQUEST. DCP- Discharge Planning Updated by [id number]: Martin Marshall on 04/24/19 3:[address] Patient Name: RUFINA HERNANDEZ Encounter No: [id number] : 1955 Primary Insurance: MED[place]ID [place] Anticipated DC Date: 04-23-2019 Planned Disposition: Home DCP follow-up note: KENDRICK RECEIVED CALL FROM [employer], , SPOKE TO NO WHO INFORMED CM THAT PT WILL NEED NEW ABG TESTING WITHIN 2 DAYS OF DISCHARGE, PO2 WILL NEED TO BE BELOW 55 FOR PT TO QUALIFY FOR OXYGEN. PT NEEDS NEW ABG TESTING WITHIN 2 DAYS OF DISCHARGE; FAX TO [employer] AT [phone]. MARTIN MARSHALL, CASE MANAGEMENT DCP- Discharge Planning Updated by [id number]: Martin Marshall on 04/23/19 11:[address] Patient Name: RUFINA HERNANDEZ Encounter No: [id number] : 1955 Primary Insurance: MED[place]ID [place] Anticipated DC Date: 04-23-2019 Planned Disposition: Home: DCP follow-up note: CM SPOKE TO MALINA SINGER WHO INFORMED CM THAT THEY ARE EXPECTING OXYGEN AND NEBULIZER ORDERS AT THEIR OFFICE TO SIGN. CM RECEIVED DISCHARGE ORDERS, MET WITH PT IN ROOM WHO REPORTS SHE NEEDS OXYGEN AND NEBULIZER AND HAS NOT RECEIVED IT YET. PT WANTS TO SPEAK TO DR. MICHAUD ABOUT SPOT ON LUNG BEFORE LEAVING TODAY. PT REPORTS SHE HAS NO OTHER DISHCHARGE NEEDS, HER MOTHER IS HERE TO TAKE HER HOME TODAY AFTER SHE GETS OXYGEN AND NEBLULIZER. CM SPOKE TO DR. MICHAUD VIA PHONE WHO WILL SEE PT WHEN HE IS ABLE TODAY AND THAT PT TOLD HIM THAT THE CPAP SHE HAS CURRENTLY DOES WORK AND ONLY NEEDS NEW FILTER. PT WILL NOT NEED TRILOGY AND WILL GET OUTPATINET SLEEPSTUDY FOR CPAP REPLACEMENT. CM NOTIFIED PT. CM CALLED [employer], , LEFT MESSAGE FROM [employer] WHO IS PROCESSING ORDER FOR OXYGEN AND NEBULIZER, NOTIFIED THAT PT IS ON 4 LITERS NOW AND IS READY TO DISCHARGE, NEEDING OXYGEN TO HOSPITAL FOR DISCHARGE HOME TODAY WITH REQUESTED HOME DELIVERY OF HOME OXYGEN UNIT AND NEBULIZER. [employer] TO DELIVER PORTABLE OXYGEN TO ROOM TODAY AND HOME OXYGEN AND NEBULIZER FOR HOME DELIVERY AFTER PT ARRIVES HOME. Roll Hauler: Martin Marshall DCP- Discharge Planning Updated by [id number]: Martin Marshall on 04/22/19 11:[address] Patient Name: RUFINA HERNANDEZ Admission Status: ER Accout number: [id number] Admission Date: 04-16-2019 : 1955 Admission Diagnosis: Attending: ALO Current LOS: 6 Anticipated DC Date: 04-23-2019 Planned Disposition: Home Primary Insurance: [place]ID [place] Discharge Planning Comments: CM MET WITH PT IN ROOM TO DISCUSS DISCHARGE PLANNING AND NEEDS. PT REPORTS LIVING AT HOME INDEPENDENTLY WITH HER ADULT SON AND DAUGHTER. PT HAS NO MEDICAL EQUIPMENT; PT HAS A CPAP THAT DOES NOT WORK AND HAS NOT HAD A SLEEP STUDY IN YEARS. PT WOULD LIKE TO USE [employer] FOR HER MEDICAL EQUIPMENT IT IS THE CLOSEST TO HER HOME, CHOICE SIGNED. PT HAS NO OUTSIDE SERVICES ASSISTING IN THE HOME. CM DISCUSSED AVAILABILITY OF HOME HEALTH, REHAB SERVICES AND MEDICAL EQUIPMENT. PT DENIES DISCHARGE NEEDS OTHER THAN OXYGEN AND NEBULIZER, REPORTS HER SON OR DAUGHTER WILL PICK HER UP FOR DISCHARGE HOME. CM NOTIFIED DR. MICHAUD OF PT NOT HAVING A WORKING CPAP AT HOME. CM CALLED [facility], , SPOKE TO MONIKA WHO TOOK OXYGEN AND NEBULIZER ORDER. CM FAXED OXYGEN AND NEBULIZER ORDERS TO [facility] AT [phone]. [facility] TO ARRANGE PORTABLE OXYGEN TO HOPITAL ROOM AND HOME OXYGEN AND NEBULIZER FOR HOME DELIVERY AFTER PT ARRIVES HOME. PT CURRENTLY ON 8 LITERS NASAL CANNULA OXYGEN; [facility] WILL NEED TO KNOW OXYGEN LITER FLOW TO COMPLETE OXYGEN ORDER. NOTIFY [facility] OF REQUIRED LITER FLOW FOR OXYGEN ORDER COMPLETION AT [phone]. Roll Hauler: Martin Lackey DP export: 04/24/19 3:54 p Patient Name: RUFINA HERNANDEZ Page 27638 at 0934 All edits/amendments must be made on the electronic document DICTATION DATE: 04/26/19933 HOTEL DESK CLERK: GONZALEZ 04/26/19933 RPT#: [id number] DC DATE: STATUS: ADM IN [facility] [address] [place] [address] END OF REPORT
--- NOTE | 2019-04-26 09:47 | MORECARE ---
CASE MANAGEMENT DISCHARGE SUMMARY PATIENT: RUFINA HERNANDEZ UNIT: [id number] ADM DATE: 04/16/19 AGE: 63 : 59 SEX: F ROOM/BED: D.2104 AUTHOR: DOMINGA,DOC PHYSICIAN: REFERRING PHYSICIAN: ERUM NIÑO MD DATE OF SERVICE: 04/26/19 Discharge Plan Patient Name: RUFINA HERNANDEZ Facility: [facility]:[place] : 1955 Planned Disposition: Home Anticipated Discharge Date: 04/23/19 Discharge Date: Expected LOS: 7 Initial Reviewer: [id number] Initial Review Date: 04/16/2019 Generated: 04/26/19 10:47 am Comments DCP- Discharge Planning Updated by [email or web address]: Ca Agudelo on 04/26/19 8:[address] CM SPOKE WITH THE PATIENT. SHE WANTED TO KNOW IF SHE WAS BEING DISCHARGED. I TOLD HER RICKY STATED DR MICHAUD WOULD MAKE THAT DECISION. SHE CONFIRMS HER CXR HAS BEEN DONE TODAY. CM ADVISED SHE WOULOD NEED A REPEAT ABG PER [facility]. SHE IS ANXIOUS TO GO HOME. I ADVISED I WOULD CALL [facility] TO DELIVER THE O2 AND NEBULIZER WHEN D/C ORDERS ARE WRITTEN. DCP- Discharge Planning Updated by [id number]: Ca Agudelo on 04/26/19 8:[address] RICKY MALINA SINGER, SPOKE W/ KENDRICK. HE ADVISED IF PATIENT IS DISCHARGED TODAY SHE WILL NEED HER NEBULIZER AND HOME OXYGEN. KENDRICK ADVISED SHE MAY NEED AN UPDATED ABG. DR MICHAUD TO DETERMINE DISCHARGE DEPENDING ON HER CXR. CM SPOKE W/ EMMETT, THE PATIENT'S NURSE, TO ADVISE OF NEED FOR ABG IF SHE IS DISCHARGED TODAY PER [facility]'S INSTRUCTION. CM TO SEE THE PATIENT PER HER REQUEST. DCP- Discharge Planning Updated by [id number]: Martin Marshall on 04/24/19 3:[address] Patient Name: RUFINA HERNANDEZ Encounter No: [id number] : 1955 Primary Insurance: MEDICAID [place] Anticipated DC Date: 04-23-2019 Planned Disposition: Home DCP follow-up note: CM RECEIVED CALL FROM [employer], , SPOKE TO NO WHO INFORMED CM THAT PT WILL NEED NEW ABG TESTING WITHIN 2 DAYS OF DISCHARGE, PO2 WILL NEED TO BE BELOW 55 FOR PT TO QUALIFY FOR OXYGEN. PT NEEDS NEW ABG TESTING WITHIN 2 DAYS OF DISCHARGE; FAX TO [employer] AT [phone]. MARTIN MARSHALL, CASE MANAGEMENT DCP- Discharge Planning Updated by [id number]: Martin Marshall on 04/23/19 11:[address] Patient Name: RUFINA HERNANDEZ Encounter No: [id number] : 1955 Primary Insurance: MEDICAID [place] Anticipated DC Date: 04-23-2019 Planned Disposition: Home: DCP follow-up note: CM SPOKE TO MALINA SINGER WHO INFORMED CM THAT THEY ARE EXPECTING OXYGEN AND NEBULIZER ORDERS AT THEIR OFFICE TO SIGN. CM RECEIVED DISCHARGE ORDERS, MET WITH PT IN ROOM WHO REPORTS SHE NEEDS OXYGEN AND NEBULIZER AND HAS NOT RECEIVED IT YET. PT WANTS TO SPEAK TO DR. MICHAUD ABOUT SPOT ON LUNG BEFORE LEAVING TODAY. PT REPORTS SHE HAS NO OTHER DISHCHARGE NEEDS, HER MOTHER IS HERE TO TAKE HER HOME TODAY AFTER SHE GETS OXYGEN AND NEBLULIZER. CM SPOKE TO DR. MICHAUD VIA PHONE WHO WILL SEE PT WHEN HE IS ABLE TODAY AND THAT PT TOLD HIM THAT THE CPAP SHE HAS CURRENTLY DOES WORK AND ONLY NEEDS NEW FILTER. PT WILL NOT NEED TRILOGY AND [facility]AC[facility]. CM NOTIFIED PT. CM CALLED [employer], , LEFT MESSAGE FROM [employer] WHO IS PROCESSING ORDER FOR OXYGEN AND NEBULIZER, NOTIFIED THAT PT IS ON 4 LITERS NOW AND IS READY TO DISCHARGE, NEEDING OXYGEN TO HOSPITAL FOR DISCHARGE HOME TODAY WITH REQUESTED HOME DELIVERY OF HOME OXYGEN UNIT AND NEBULIZER. [facility] TO DELIVER PORTABLE OXYGEN TO ROOM TODAY AND HOME OXYGEN AND NEBULIZER FOR HOME DELIVERY AFTER PT ARRIVES HOME. Budder: Martin Marshall DCP- Discharge Planning Updated by [id number]: Martin Marshall on 04/22/19 11:[address] Patient Name: RUFINA HERNANDEZ Admission Status: ER Accout number: [id number] Admission Date: 04-16-2019 : 1955 Admission Diagnosis: Attending: ALO Current LOS: 6 Anticipated DC Date: 04-23-2019 Planned Disposition: Home Primary Insurance: MEDICAID [place] Discharge Planning Comments: CM MET WITH PT IN ROOM TO DISCUSS DISCHARGE PLANNING AND NEEDS. PT REPORTS LIVING AT HOME INDEPENDENTLY WITH HER ADULT SON AND DAUGHTER. PT HAS NO MEDICAL EQUIPMENT; PT HAS A CPAP THAT DOES NOT WORK AND HAS NOT HAD A SLEEP STUDY IN YEARS. PT WOULD LIKE TO USE [facility] FOR HER MEDICAL EQUIPMENT IT IS THE CLOSEST TO HER HOME, CHOICE SIGNED. PT HAS NO OUTSIDE SERVICES ASSISTING IN THE HOME. CM DISCUSSED AVAILABILITY OF HOME HEALTH, REHAB SERVICES AND MEDICAL EQUIPMENT. PT DENIES DISCHARGE NEEDS OTHER THAN OXYGEN AND NEBULIZER, REPORTS HER SON OR DAUGHTER WILL PICK HER UP FOR DISCHARGE HOME. CM NOTIFIED DR. MICHAUD OF PT NOT HAVING A WORKING CPAP AT HOME. CM CALLED [facility], , SPOKE TO [facility] WHO TOOK OXYGEN AND NEBULIZER ORDER. CM FAXED OXYGEN AND NEBULIZER ORDERS TO [facility] AT [phone]. [facility] TO ARRANGE PORTABLE OXYGEN TO HOPITAL ROOM AND HOME OXYGEN AND NEBULIZER FOR HOME DELIVERY AFTER PT ARRIVES HOME. PT CURRENTLY ON 8 LITERS NASAL CANNULA OXYGEN; [facility] WILL NEED TO KNOW OXYGEN LITER FLOW TO COMPLETE OXYGEN ORDER. NOTIFY [facility] OF REQUIRED LITER FLOW FOR OXYGEN ORDER COMPLETION AT [phone]. Budder: Martin ALVARADO export: 04/26/19 8:34 a Patient Name: RUFINA HERNANDEZ Page 49893 at 0947 All edits/amendments must be made on the electronic document DICTATION DATE: 04/26/19945 SOURCING ENGINEER: GONZALEZ 04/26/19945 RPT#: [id number] DC DATE: STATUS: ADM IN [facility] [address] [place] [address] END OF REPORT
[2019-04-26 09:50] VITALS: BP 137/45
[2019-04-26 14:15] VITALS: BP 141/40
[2019-04-26] MEDS ORDERED: OMNICEF300 MG PO (14:19)
--- NOTE | 2019-04-26 14:34 | MORECARE ---
CASE MANAGEMENT DISCHARGE SUMMARY PATIENT: RUFINA HERNANDEZ UNIT: [id number] ADM DATE: 04/16/19 AGE: 63 : 59 SEX: F ROOM/BED: D.2106 AUTHOR: DOMINGA,DOC PHYSICIAN: REFERRING PHYSICIAN: ERUM NIÑO MD DATE OF SERVICE: 04/26/19 Discharge Plan Patient Name: RUFINA HERNANDEZ Facility: [facility]:[place] : 1955 Planned Disposition: Home Anticipated Discharge Date: 04/23/19 Discharge Date: Expected LOS: 7 Initial Reviewer: [id number] Initial Review Date: 04/16/2019 Generated: 04/26/19 3:33 pm Comments DCP- Discharge Planning Updated by [email or web address]: Ca Agudelo on 04/26/19 1:[address] MICHAUD ROUNDED AND SPOKE WITH THE PATIENT. CM ADVISED THE PATIENT WOULD NEED REPEAT ABG'S TO QUALIFY FOR OXYGEN. DR MICHAUD ORDERED THE ABG'S. PO2 WAS 61% ON ROOM AIR AT REST ON ABG'S. THE RESPIRATORY THERAPIST NOTIFIED DR DR MICHAUD. DCP- Discharge Planning Updated by [id number]: Ca Agudelo on 04/26/19 8:[address] CM SPOKE WITH THE PATIENT. SHE WANTED TO KNOW IF SHE WAS BEING DISCHARGED. I TOLD HER RICKY STATED DR MICHAUD WOULD MAKE THAT DECISION. SHE CONFIRMS HER CXR HAS BEEN DONE TODAY. CM ADVISED SHE WOULOD NEED A REPEAT ABG PER [facility]. SHE IS ANXIOUS TO GO HOME. I ADVISED I WOULD CALL [facility] TO DELIVER THE O2 AND NEBULIZER WHEN D/C ORDERS ARE WRITTEN. DCP- Discharge Planning Updated by [id number]: Ca Agudelo on 04/26/19 8:[address] [facility] MALINA SINGER, SPOKE W/ KENDRICK. HE ADVISED IF PATIENT IS DISCHARGED TODAY SHE WILL NEED HER NEBULIZER AND HOME OXYGEN. CM ADVISED SHE MAY NEED AN UPDATED ABG. DR MICHAUD TO DETERMINE DISCHARGE DEPENDING ON HER CXR. CM SPOKE W/ EMMETT, THE PATIENT'S NURSE, TO ADVISE OF NEED FOR ABG IF SHE IS DISCHARGED TODAY [facility]. CM TO SEE THE PATIENT PER HER REQUEST. DCP- Discharge Planning Updated by [id number]: Martin Marshall on 04/24/19 3:[address] Patient Name: RUFINA HERNANDEZ Encounter No: [id number] : 1955 Primary Insurance: [place]ID [place] Anticipated DC Date: 04-23-2019 Planned Disposition: Home DCP follow-up note: CM RECEIVED CALL FROM [employer], , SPOKE TO NO WHO INFORMED CM THAT PT WILL NEED NEW ABG TESTING WITHIN 2 DAYS OF DISCHARGE, PO2 WILL NEED TO BE BELOW 55 FOR PT TO QUALIFY FOR OXYGEN. PT NEEDS NEW ABG TESTING WITHIN 2 DAYS OF DISCHARGE; FAX TO [employer] AT [phone]. MARTIN MARSHALL, CASE MANAGEMENT DCP- Discharge Planning Updated by [id number]: Martin Marshall on 04/23/19 11:[address] Patient Name: RUFINA HERNANDEZ Encounter No: [id number] : 1955 Primary Insurance: MED[place]ID [place] Anticipated DC Date: 04-23-2019 Planned Disposition: Home: DCP follow-up note: CM SPOKE TO MAL[employer] SINGER WHO INFORMED CM THAT THEY ARE EXPECTING OXYGEN AND NEBULIZER ORDERS AT THEIR OFFICE TO SIGN. CM RECEIVED DISCHARGE ORDERS, MET WITH PT IN ROOM WHO REPORTS SHE NEEDS OXYGEN AND NEBULIZER AND HAS NOT RECEIVED IT YET. PT WANTS TO SPEAK TO DR. MICHAUD ABOUT SPOT ON LUNG BEFORE LEAVING TODAY. PT REPORTS SHE HAS NO OTHER DISHCHARGE NEEDS, HER MOTHER IS HERE TO TAKE HER HOME TODAY AFTER SHE GETS OXYGEN AND NEBLULIZER. CM SPOKE TO DR. MICHAUD VIA PHONE WHO WILL SEE PT WHEN HE IS ABLE TODAY AND THAT PT TOLD HIM THAT THE CPAP SHE HAS CURRENTLY DOES WORK AND ONLY NEEDS NEW FILTER. PT WILL NOT NEED TRILOGY AND [facility]. CM NOTIFIED PT. CM CALLED [employer], , LEFT MESSAGE FROM [employer] WHO IS PROCESSING ORDER FOR OXYGEN AND NEBULIZER, NOTIFIED THAT PT IS ON 4 LITERS NOW AND IS READY TO DISCHARGE, NEEDING OXYGEN TO HOSPITAL FOR DISCHARGE HOME TODAY WITH REQUESTED HOME DELIVERY OF HOME OXYGEN UNIT AND NEBULIZER. [employer] TO DELIVER PORTABLE OXYGEN TO ROOM TODAY AND HOME OXYGEN AND NEBULIZER FOR HOME DELIVERY AFTER PT ARRIVES HOME. Pneumatic Tube Repairer: Martin Marshall DCP- Discharge Planning Updated by [id number]: Martin Marshall on 04/22/19 11:[address] Patient Name: RUFINA HERNANDEZ Admission Status: ER Accout number: [id number] Admission Date: 04-16-2019 : 1955 Admission Diagnosis: Attending: ALO Current LOS: 6 Anticipated DC Date: 04-23-2019 Planned Disposition: Home Primary Insurance: MED[place]ID [place] Discharge Planning Comments: CM MET WITH PT IN ROOM TO DISCUSS DISCHARGE PLANNING AND NEEDS. PT REPORTS LIVING AT HOME INDEPENDENTLY WITH HER ADULT SON AND DAUGHTER. PT HAS NO MEDICAL EQUIPMENT; PT HAS A CPAP THAT DOES NOT WORK AND HAS NOT HAD A SLEEP STUDY IN YEARS. PT WOULD LIKE TO USE [facility] FOR HER MEDICAL EQUIPMENT IT IS THE CLOSEST TO HER HOME, CHOICE SIGNED. PT HAS NO OUTSIDE SERVICES ASSISTING IN THE HOME. CM DISCUSSED AVAILABILITY OF HOME HEALTH, REHAB SERVICES AND MEDICAL EQUIPMENT. PT DENIES DISCHARGE NEEDS OTHER THAN OXYGEN AND NEBULIZER, REPORTS HER SON OR DAUGHTER WILL PICK HER UP FOR DISCHARGE HOME. CM NOTIFIED DR. MICHAUD OF PT NOT HAVING A WORKING CPAP AT HOME. CM CALLED [facility], , SPOKE TO MONIKA WHO TOOK OXYGEN AND NEBULIZER ORDER. CM FAXED OXYGEN AND NEBULIZER ORDERS TO [facility] AT [phone]. [facility] TO ARRANGE PORTABLE OXYGEN TO HOPITAL ROOM AND HOME OXYGEN AND NEBULIZER FOR HOME DELIVERY AFTER PT ARRIVES HOME. PT CURRENTLY ON 8 LITERS NASAL CANNULA OXYGEN; [facility] WILL NEED TO KNOW OXYGEN LITER FLOW TO COMPLETE OXYGEN ORDER. NOTIFY [facility] OF REQUIRED LITER FLOW FOR OXYGEN ORDER COMPLETION AT [phone]. Pneumatic Tube Repairer: Martin Marshall Last DP export: 04/26/19 8:47 a Patient Name: RUFINA HERNANDEZ Page [id number] at 1434 All edits/amendments must be made on the electronic document DICTATION DATE: 04/26/19 1433 AIRBRUSH PAINTER: GONZALEZ 04/26/19 1433 RPT#: [id number] DC DATE: STATUS: ADM IN [facility] [address] [facility] [place] [address] END OF REPORT
--- NOTE | 2019-04-26 16:32 | MORECARE ---
CASE MANAGEMENT DISCHARGE SUMMARY PATIENT: RUFINA HERNANDEZ UNIT: [id number] ADM DATE: 04/16/19 AGE: 63 : 59 SEX: F ROOM/BED: D.2106 AUTHOR: DOMINGA,DOC PHYSICIAN: REFERRING PHYSICIAN: ERUM NIÑO MD DATE OF SERVICE: 04/26/19 Discharge Plan Patient Name: RUFINA HERNANDEZ Facility: [facility]:[place] : 1955 Planned Disposition: Home Anticipated Discharge Date: 04/23/19 Discharge Date: Expected LOS: 7 Initial Reviewer: [id number] Initial Review Date: 04/16/2019 Generated: 04/26/19 5:32 pm Comments DCP- Discharge Planning Updated by [id number]: Ca Agudelo on 04/26/19 1:[address] MICHAUD ROUNDED AND SPOKE WITH THE PATIENT. CM ADVISED THE PATIENT WOULD NEED REPEAT ABG'S TO QUALIFY FOR OXYGEN. DR MICHAUD ORDERED THE ABG'S. PO2 WAS 61% ON ROOM AIR AT REST ON ABG'S. THE RESPIRATORY THERAPIST NOTIFIED DR DR MICHAUD. DCP- Discharge Planning Updated by [id number]: Ca Agudelo on 04/26/19 8:[address] CM SPOKE WITH THE PATIENT. SHE WANTED TO KNOW IF SHE WAS BEING DISCHARGED. I TOLD HER RICKY STATED DR MICHAUD WOULD MAKE THAT DECISION. SHE CONFIRMS HER CXR HAS BEEN DONE TODAY. CM ADVISED SHE WOULOD NEED A REPEAT ABG PER [facility]. SHE IS ANXIOUS TO GO HOME. I ADVISED I WOULD CALL [facility] TO DELIVER THE O2 AND NEBULIZER WHEN D/C ORDERS ARE WRITTEN. DCP- Discharge Planning Updated by [id number]: Ca Agudelo on 04/26/19 8:[address] RICKY MALINA SINGER, SPOKE W/ KENDRICK. HE ADVISED IF PATIENT IS DISCHARGED TODAY SHE WILL NEED HER NEBULIZER AND HOME OXYGEN. CM ADVISED SHE MAY NEED AN UPDATED ABG. DR MICHAUD TO DETERMINE DISCHARGE DEPENDING ON HER CXR. CM SPOKE W/ EMMETT, THE PATIENT'S NURSE, TO ADVISE OF NEED FOR ABG IF SHE IS DISCHARGED TODAY [facility]. CM TO SEE THE PATIENT PER HER REQUEST. DCP- Discharge Planning Updated by [id number]: Martin Marshall on 04/24/19 3:[address] Patient Name: RUFINA HERNANDEZ Encounter No: [id number] : 1955 Primary Insurance: MEDICAID [place] Anticipated DC Date: 04-23-2019 Planned Disposition: Home DCP follow-up note: CM RECEIVED CALL FROM [employer], , SPOKE TO NO WHO INFORMED CM THAT PT WILL NEED NEW ABG TESTING WITHIN 2 DAYS OF DISCHARGE, PO2 WILL NEED TO BE BELOW 55 FOR PT TO QUALIFY FOR OXYGEN. PT NEEDS NEW ABG TESTING WITHIN 2 DAYS OF DISCHARGE; FAX TO [employer] AT [phone]. MARTIN MARSHALL, CASE MANAGEMENT DCP- Discharge Planning Updated by [id number]: Martin Marshall on 04/23/19 11:[address] Patient Name: RUFINA HERNANDEZ Encounter No: [id number] : 1955 Primary Insurance: MEDICAID [place] Anticipated DC Date: 04-23-2019 Planned Disposition: Home: DCP follow-up note: CM SPOKE TO MALINA SINGER WHO INFORMED CM THAT THEY ARE EXPECTING OXYGEN AND NEBULIZER ORDERS AT THEIR OFFICE TO SIGN. CM RECEIVED DISCHARGE ORDERS, MET WITH PT IN ROOM WHO REPORTS SHE NEEDS OXYGEN AND NEBULIZER AND HAS NOT RECEIVED IT YET. PT WANTS TO SPEAK TO DR. MICHAUD ABOUT SPOT ON LUNG BEFORE LEAVING TODAY. PT REPORTS SHE HAS NO OTHER DISHCHARGE NEEDS, HER MOTHER IS HERE TO TAKE HER HOME TODAY AFTER SHE GETS OXYGEN AND NEBLULIZER. CM SPOKE TO DR. MICHAUD VIA PHONE WHO WILL SEE PT WHEN HE IS ABLE TODAY AND THAT PT TOLD HIM THAT THE CPAP SHE HAS CURRENTLY DOES WORK AND ONLY NEEDS NEW FILTER. PT WILL NOT NEED TRILOGY AND [facility]. CM NOTIFIED PT. CM CALLED [facility], , LEFT MESSAGE FROM [employer] WHO IS PROCESSING ORDER FOR OXYGEN AND NEBULIZER, NOTIFIED THAT PT IS ON 4 LITERS NOW AND IS READY TO DISCHARGE, NEEDING OXYGEN TO HOSPITAL FOR DISCHARGE HOME TODAY WITH REQUESTED HOME DELIVERY OF HOME OXYGEN UNIT AND NEBULIZER. [facility] TO DELIVER PORTABLE OXYGEN TO ROOM TODAY AND HOME OXYGEN AND NEBULIZER FOR HOME DELIVERY AFTER PT ARRIVES HOME. Manager Relocation: Martin Marshall DCP- Discharge Planning Updated by [id number]: Martin Marshall on 04/22/19 11:[address] Patient Name: RUFINA HERNANDEZ Admission Status: ER Accout number: [id number] Admission Date: 04-16-2019 : 1955 Admission Diagnosis: Attending: ALO Current LOS: 6 Anticipated DC Date: 04-23-2019 Planned Disposition: Home Primary Insurance: MED[place]ID [place] Discharge Planning Comments: CM MET WITH PT IN ROOM TO DISCUSS DISCHARGE PLANNING AND NEEDS. PT REPORTS LIVING AT HOME INDEPENDENTLY WITH HER ADULT SON AND DAUGHTER. PT HAS NO MEDICAL EQUIPMENT; PT HAS A CPAP THAT DOES NOT WORK AND HAS NOT HAD A SLEEP STUDY IN YEARS. PT WOULD LIKE TO USE [facility] FOR HER MEDICAL EQUIPMENT IT IS THE CLOSEST TO HER HOME, CHOICE SIGNED. PT HAS NO OUTSIDE SERVICES ASSISTING IN THE HOME. CM DISCUSSED AVAILABILITY OF HOME HEALTH, REHAB SERVICES AND MEDICAL EQUIPMENT. PT DENIES DISCHARGE NEEDS OTHER THAN OXYGEN AND NEBULIZER, REPORTS HER SON OR DAUGHTER WILL PICK HER UP FOR DISCHARGE HOME. CM NOTIFIED DR. MICHAUD OF PT NOT HAVING A WORKING CPAP AT HOME. CM CALLED [facility], , SPOKE TO MONIKA WHO TOOK OXYGEN AND NEBULIZER ORDER. CM FAXED OXYGEN AND NEBULIZER ORDERS TO [facility] AT [phone]. [facility] TO ARRANGE PORTABLE OXYGEN TO HOPITAL ROOM AND HOME OXYGEN AND NEBULIZER FOR HOME DELIVERY AFTER PT ARRIVES HOME. PT CURRENTLY ON 8 LITERS NASAL CANNULA OXYGEN; [facility] WILL NEED TO KNOW OXYGEN LITER FLOW TO COMPLETE OXYGEN ORDER. NOTIFY [facility] OF REQUIRED LITER FLOW FOR OXYGEN ORDER COMPLETION AT [phone]. Manager Relocation: Martin Marshall Last DP export: 04/26/19 1:34 p Patient Name: RUFINA HERNANDEZ Page 11109 at 1632 All edits/amendments must be made on the electronic document DICTATION DATE: 04/26/19 1632 RIVET TOSSER: GONZALEZ 04/26/19 1632 RPT#: [id number] DC DATE: STATUS: ADM IN [facility] [address] [place] [id number] END OF REPORT
--- NOTE | 2019-04-26 16:40 | MORECARE ---
CASE MANAGEMENT DISCHARGE SUMMARY PATIENT: RUFINA HERNANDEZ UNIT: [id number] ADM DATE: 04/16/19 AGE: 63 : 59 SEX: F ROOM/BED: D.2106 AUTHOR: DOMINGA,DOC PHYSICIAN: REFERRING PHYSICIAN: ERUM NIÑO MD DATE OF SERVICE: 04/26/19 Discharge Plan Patient Name: RUFINA HERNANDEZ Facility: [facility]:[place] : 1955 Planned Disposition: Home Anticipated Discharge Date: 04/23/19 Discharge Date: Expected LOS: 7 Initial Reviewer: [id number] Initial Review Date: 04/16/2019 Generated: 04/26/19 5:40 pm Comments DCP- Discharge Planning Updated by [id number]: Ca Agudelo on 04/26/19 3:[address] LATE ENTRY PATIENT WAS AMBULATED AND PULSE OXY READING IMPROVED. PATIENT DID NOT QUALIFY FOR OXYGEN WITH ABG READINGS. DR MICHAUD HAS APPROVED DISCHARGE TO HOME WITHOUT THE OXYGEN. KENDRICK [facility]ED [facility]. REC CB FROM THE SWEETBREAD TRIMMER. ADVISED HIM WE STILL NEED THE NEBULIZER BUT OXYGEN WOULD NOT BE NEEDED. HE STATED HE WOULD SPEAK TO HIS JUKEBOX COIN COLLECTOR. 1086 PATIENT TELLS THE NURSE SHE CANNOT AFFORD THE NEBULIZER OR HER MEDS. KENDRICK SPOKE W/ PRINTED [employer]AR[employer] CONTACT PRINTER REGARDING THE MEDS. REQUESTED HER TO FOLLOW UP WITH DR MICHAUD. KENDRICK CALLED [facility]. NEBULIZER SHOULD BE COVERED BY HER INSURER. KENDRICK SPOKE W/ THE ONCALL AND INSTRUCTED HIM TO CALL THE PATIENT IN HER ROOM. KENDRICK SPOKE W/ THE PATIENT. SHE HAS SPOKEN WITH THE SWEETBREAD TRIMMER. HE WILL POST FRAMER THE PORTABLE O2 TANK AND DELIVER HER NEBULIZER. SHE IS TRYING TO GET TO HER PHARMACY BEFORE 5 PM. KENDRICK REC A CALL FROM THE NURSE. EXPLAINED ALL TO EMMETT THE NURSE. DCP- Discharge Planning Updated by [id number]: Ca Agudelo on 04/26/19 1:[address] MICHAUD ROUNDED AND SPOKE WITH THE PATIENT. KENDRICK ADVISED THE PATIENT WOULD NEED REPEAT ABG'S TO QUALIFY FOR OXYGEN. DR MICHAUD ORDERED THE ABG'S. PO2 WAS 61% ON ROOM AIR AT REST ON ABG'S. THE RESPIRATORY THERAPIST NOTIFIED DR DR MICHAUD. DCP- Discharge Planning Updated by [id number]: Cakane Agudelo on 04/26/19 8:[address] CM SPOKE WITH THE PATIENT. SHE WANTED TO KNOW IF SHE WAS BEING DISCHARGED. I TOLD HER RICKY STATED DR MICHAUD WOULD MAKE THAT DECISION. SHE CONFIRMS HER CXR HAS BEEN DONE TODAY. CM ADVISED SHE WOULOD NEED A REPEAT ABG PER [facility]. SHE IS ANXIOUS TO GO HOME. I ADVISED I WOULD CALL [facility] TO DELIVER THE O2 AND NEBULIZER WHEN D/C ORDERS ARE WRITTEN. DCP- Discharge Planning Updated by [id number]: Cakane Agudelo on 04/26/19 8:[address] RICKY MALINA SINGER, SPOKE W/ KENDRICK. HE ADVISED IF PATIENT IS DISCHARGED TODAY SHE WILL NEED HER NEBULIZER AND HOME OXYGEN. CM ADVISED SHE MAY NEED AN UPDATED ABG. DR MICHAUD TO DETERMINE DISCHARGE DEPENDING ON HER CXR. CM SPOKE W/ EMMETT, THE PATIENT'S NURSE, TO ADVISE OF NEED FOR ABG IF SHE IS DISCHARGED TODAY PER [facility]'S INSTRUCTION. CM TO SEE THE PATIENT PER HER REQUEST. DCP- Discharge Planning Updated by [id number]: Martin Marshall on 04/24/19 3:[address] Patient Name: RUFINA HERNANDEZ Encounter No: [id number] : 1955 Primary Insurance: MEDICAID [place] Anticipated DC Date: 04-23-2019 Planned Disposition: Home DCP follow-up note: CM [facility], , SPOKE TO NO WHO INFORMED CM THAT PT WILL NEED NEW ABG TESTING WITHIN 2 DAYS OF DISCHARGE, PO2 WILL NEED TO BE BELOW 55 FOR PT TO QUALIFY FOR OXYGEN. PT NEEDS NEW ABG TESTING WITHIN 2 DAYS OF DISCHARGE; FAX TO [facility] AT [phone]. MARTIN MARSHALL, CASE MANAGEMENT DCP- Discharge Planning Updated by [id number]: Martin Marshall on 04/23/19 11:[address] Patient Name: RUFINA HERNANDEZ Encounter No: [id number] : 1955 Primary Insurance: MEDICAID [place] Anticipated DC Date: 04-23-2019 Planned Disposition: Home: DCP follow-up note: CM SPOKE TO MALINA SINGER WHO INFORMED CM THAT THEY ARE EXPECTING OXYGEN AND NEBULIZER ORDERS AT THEIR OFFICE TO SIGN. CM RECEIVED DISCHARGE ORDERS, MET WITH PT IN ROOM WHO REPORTS SHE NEEDS OXYGEN AND NEBULIZER AND HAS NOT RECEIVED IT YET. PT WANTS TO SPEAK TO DR. MICHAUD ABOUT SPOT ON LUNG BEFORE LEAVING TODAY. PT REPORTS SHE HAS NO OTHER DISHCHARGE NEEDS, HER MOTHER IS HERE TO TAKE HER HOME TODAY AFTER SHE GETS OXYGEN AND NEBLULIZER. CM SPOKE TO DR. MICHAUD VIA PHONE WHO WILL SEE PT WHEN HE IS ABLE TODAY AND THAT PT TOLD HIM THAT THE CPAP SHE HAS CURRENTLY DOES WORK AND ONLY NEEDS NEW FILTER. PT WILL NOT NEED TRILOGY AND [facility]. CM NOTIFIED PT. CM CALLED [employer], , LEFT MESSAGE FROM [employer] WHO IS PROCESSING ORDER FOR OXYGEN AND NEBULIZER, NOTIFIED THAT PT IS ON 4 LITERS NOW AND IS READY TO DISCHARGE, NEEDING OXYGEN TO HOSPITAL FOR DISCHARGE HOME TODAY WITH REQUESTED HOME DELIVERY OF HOME OXYGEN UNIT AND NEBULIZER. [facility] TO DELIVER PORTABLE OXYGEN TO ROOM TODAY AND HOME OXYGEN AND NEBULIZER FOR HOME DELIVERY AFTER PT ARRIVES HOME. Control Room Technician: Martin Marshall DCP- Discharge Planning Updated by [id number]: Martin Marshall on 04/22/19 11:[address] Patient Name: RUFINA HERNANDEZ Admission Status: ER Accout number: [id number] Admission Date: 04-16-2019 : 1955 Admission Diagnosis: Attending: ALO Current LOS: 6 Anticipated DC Date: 04-23-2019 Planned Disposition: Home Primary Insurance: MEDICAID [place] Discharge Planning Comments: CM MET WITH PT IN ROOM TO DISCUSS DISCHARGE PLANNING AND NEEDS. PT REPORTS LIVING AT HOME INDEPENDENTLY WITH HER ADULT SON AND DAUGHTER. PT HAS NO MEDICAL EQUIPMENT; PT HAS A CPAP THAT DOES NOT WORK AND HAS NOT HAD A SLEEP STUDY IN YEARS. PT WOULD LIKE TO USE [employer] FOR HER MEDICAL EQUIPMENT IT IS THE CLOSEST TO HER HOME, CHOICE SIGNED. PT HAS NO OUTSIDE SERVICES ASSISTING IN THE HOME. CM DISCUSSED AVAILABILITY OF HOME HEALTH, REHAB SERVICES AND MEDICAL EQUIPMENT. PT DENIES DISCHARGE NEEDS OTHER THAN OXYGEN AND NEBULIZER, REPORTS HER SON OR DAUGHTER WILL PICK HER UP FOR DISCHARGE HOME. CM NOTIFIED DR. MICHAUD OF PT NOT HAVING A WORKING CPAP AT HOME. CM CALLED [facility], , SPOKE TO MONIKA WHO TOOK OXYGEN AND NEBULIZER ORDER. FAXED OXYGEN AND NEBULIZER ORDERS TO [facility] AT [phone]. [facility] TO ARRANGE PORTABLE OXYGEN TO HOPITAL ROOM AND HOME OXYGEN AND NEBULIZER FOR HOME DELIVERY AFTER PT ARRIVES HOME. PT CURRENTLY ON 8 LITERS NASAL CANNULA OXYGEN; [facility] WILL NEED TO KNOW OXYGEN LITER FLOW TO COMPLETE OXYGEN ORDER. NOTIFY [facility] OF REQUIRED LITER FLOW FOR OXYGEN ORDER COMPLETION AT [phone]. Control Room Technician: Martin Lackey DP export: 04/26/19 3:32 p Patient Name: RUFINA HERNANDEZ Page 67919 at 1640 All edits/amendments must be made on the electronic document DICTATION DATE: 04/26/19 1640 WRAPPER COUNTER: GONZALEZ 04/26/19 1640 RPT#: [id number] DC DATE: STATUS: ADM IN [facility] [address] [place] [address] END OF REPORT
--- NOTE | 2019-04-26 17:09 | NUR ---
ALERT AND ORIENTED X4. SITTING UP ON SOB. SON AT BEDSIDE. DISCHARGE INSTRUCTIONS GIVEN VERBALLY AND WRITTEN. NEBULIZER DELIVERED IN ROOM. DISCHARGE PAPERS SIGNED ON CHART. ESCORT TO RIDE VIA WHEELCHAIR. REMAINS FREE FROM INJURY.
--- NOTE | 2019-04-27 08:09 | MORECARE ---
CASE MANAGEMENT DISCHARGE SUMMARY PATIENT: RUFINA HERNANDEZ UNIT: [id number] ADM DATE: 04/16/19 AGE: 63 : 59 SEX: F ROOM/BED: D.2109 AUTHOR: DOMINGA,DOC PHYSICIAN: REFERRING PHYSICIAN: ERUM NIÑO MD DATE OF SERVICE: 04/27/19 Discharge Plan Patient Name: RUFINA HERNANDEZ Facility: [facility]:[place] : 1955 Planned Disposition: Home Anticipated Discharge Date: 04/23/19 Discharge Date: 04/26/2019 Expected LOS: 7 Initial Reviewer: [id number] Initial Review Date: 04/16/2019 Generated: 04/27/19 9:08 am Comments DCP- Discharge Planning Updated by [email or web address]: aC Agudelo on 04/26/19 3:[address] LATE ENTRY PATIENT WAS AMBULATED AND PULSE OXY READING IMPROVED. PATIENT DID NOT QUALIFY FOR OXYGEN WITH ABG READINGS. DR MICHAUD HAS APPROVED DISCHARGE TO HOME WITHOUT THE OXYGEN. KENDRICK CALLED [employer]. REC CB FROM THE MUSEUM PREPARATOR. ADVISED HIM WE STILL NEED THE NEBULIZER BUT OXYGEN WOULD NOT BE NEEDED. HE STATED HE WOULD SPEAK TO HIS AUDITOR INTERNAL. 1390 PATIENT TELLS THE NURSE SHE CANNOT AFFORD THE NEBULIZER OR HER MEDS. CM SPOKE W/ INTERIOR SPECIALIST REGARDING THE MEDS. REQUESTED HER TO FOLLOW UP WITH DR MICHAUD. [facility] NEBULIZER SHOULD BE COVERED BY HER INSURER. KENDRICK SPOKE W/ THE ONCALL AND INSTRUCTED HIM TO CALL THE PATIENT IN HER ROOM. KENDRICK SPOKE W/ THE PATIENT. SHE HAS SPOKEN WITH THE MUSEUM PREPARATOR. HE WILL SPOOL SANDER THE PORTABLE O2 TANK AND DELIVER HER NEBULIZER. SHE IS TRYING TO GET TO HER PHARMACY BEFORE 5 PM. KENDRICK REC A CALL FROM THE NURSE. EXPLAINED ALL TO EMMETT THE NURSE. DCP- Discharge Planning Updated by [id number]: Ca Agudelo on 04/26/19 1:[address] MICHAUD ROUNDED AND SPOKE WITH THE PATIENT. KENDRICK ADVISED THE PATIENT WOULD NEED REPEAT ABG'S TO QUALIFY FOR OXYGEN. DR MICHAUD ORDERED THE ABG'S. PO2 WAS 61% ON ROOM AIR AT REST ON ABG'S. THE RESPIRATORY THERAPIST NOTIFIED DR DR MICHAUD. DCP- Discharge Planning Updated by [id number]: Ca Agudelo on 04/26/19 8:[address] CM SPOKE WITH THE PATIENT. SHE WANTED TO KNOW IF SHE WAS BEING DISCHARGED. I TOLD HER RICKY STATED DR MICHAUD WOULD MAKE THAT DECISION. SHE CONFIRMS HER CXR HAS BEEN DONE TODAY. CM ADVISED SHE WOULOD NEED A REPEAT ABG PER [facility]. SHE IS ANXIOUS TO GO HOME. I ADVISED I WOULD CALL [facility] TO DELIVER THE O2 AND NEBULIZER WHEN D/C ORDERS ARE WRITTEN. DCP- Discharge Planning Updated by [id number]: Ca Agudelo on 04/26/19 8:[address] RICKY MALINA SINGER, SPOKE W/ CM. HE ADVISED IF PATIENT IS DISCHARGED TODAY SHE WILL NEED HER NEBULIZER AND HOME OXYGEN. CM ADVISED SHE MAY NEED AN UPDATED ABG. DR MICHAUD TO DETERMINE DISCHARGE DEPENDING ON HER CXR. CM SPOKE W/ EMMETT, THE PATIENT'S NURSE, TO ADVISE OF NEED FOR ABG IF SHE IS DISCHARGED TODAY PER [facility]S INSTRUCTION. CM TO SEE THE PATIENT PER HER REQUEST. DCP- Discharge Planning Updated by [id number]: Martin Marshall on 04/24/19 3:[address] Patient Name: RUFINA HERNANDEZ Encounter No: [id number] : 1955 Primary Insurance: MEDICAID [place] Anticipated DC Date: 04-23-2019 Planned Disposition: Home DCP follow-up note: CM RECEIVED CALL FROM [facility], , SPOKE TO NO WHO INFORMED CM THAT PT WILL NEED NEW ABG TESTING WITHIN 2 DAYS OF DISCHARGE, PO2 WILL NEED TO BE BELOW 55 FOR PT TO QUALIFY FOR OXYGEN. PT NEEDS NEW ABG TESTING WITHIN 2 DAYS OF DISCHARGE; FAX TO [facility] AT [phone]. MARTIN MARSHALL, CASE MANAGEMENT DCP- Discharge Planning Updated by [id number]: Martin Marshall on 04/23/19 11:[address] Patient Name: RUFINA HERNANDEZ Encounter No: [id number] : 1955 Primary Insurance: MEDICAID [place] Anticipated DC Date: 04-23-2019 Planned Disposition: Home: DCP follow-up note: CM SPOKE TO MALINA SINGER WHO INFORMED CM THAT THEY ARE EXPECTING OXYGEN AND NEBULIZER ORDERS AT THEIR OFFICE TO SIGN. CM RECEIVED DISCHARGE ORDERS, MET WITH PT IN ROOM WHO REPORTS SHE NEEDS OXYGEN AND NEBULIZER AND HAS NOT RECEIVED IT YET. PT WANTS TO SPEAK TO DR. MICHAUD ABOUT SPOT ON LUNG BEFORE LEAVING TODAY. PT REPORTS SHE HAS NO OTHER DISHCHARGE NEEDS, HER MOTHER IS HERE TO TAKE HER HOME TODAY AFTER SHE GETS OXYGEN AND NEBLULIZER. CM SPOKE TO DR. MICHAUD VIA PHONE WHO WILL SEE PT WHEN HE IS ABLE TODAY AND THAT PT TOLD HIM THAT THE CPAP SHE HAS CURRENTLY DOES WORK AND ONLY NEEDS NEW FILTER. PT WILL NOT NEED TRILOGY [facility]. CM NOTIFIED PT. CM CALLED [employer], , LEFT MESSAGE FROM [employer] WHO IS PROCESSING ORDER FOR OXYGEN AND NEBULIZER, NOTIFIED THAT PT IS ON 4 LITERS NOW AND IS READY TO DISCHARGE, NEEDING OXYGEN TO HOSPITAL FOR DISCHARGE HOME TODAY WITH REQUESTED HOME DELIVERY OF HOME OXYGEN UNIT AND NEBULIZER. [employer] TO DELIVER PORTABLE OXYGEN TO ROOM TODAY AND HOME OXYGEN AND NEBULIZER FOR HOME DELIVERY AFTER PT ARRIVES HOME. Apparatus Lineman: Martin Marshall DCP- Discharge Planning Updated by [id number]: Martin Marshall on 04/22/19 11:[address] Patient Name: RUFINA HERNANDEZ Admission Status: ER Accout number: [id number] Admission Date: 04-16-2019 : 1955 Admission Diagnosis: Attending: ALO Current LOS: 6 Anticipated DC Date: 04-23-2019 Planned Disposition: Home Primary Insurance: MEDICAID [place] Discharge Planning Comments: CM MET WITH PT IN ROOM TO DISCUSS DISCHARGE PLANNING AND NEEDS. PT REPORTS LIVING AT HOME INDEPENDENTLY WITH HER ADULT SON AND DAUGHTER. PT HAS NO MEDICAL EQUIPMENT; PT HAS A CPAP THAT DOES NOT WORK AND HAS NOT HAD A SLEEP STUDY IN YEARS. PT WOULD LIKE TO USE [employer] FOR HER MEDICAL EQUIPMENT IT IS THE CLOSEST TO HER HOME, CHOICE SIGNED. PT HAS NO OUTSIDE SERVICES ASSISTING IN THE HOME. CM DISCUSSED AVAILABILITY OF HOME HEALTH, REHAB SERVICES AND MEDICAL EQUIPMENT. PT DENIES DISCHARGE NEEDS OTHER THAN OXYGEN AND NEBULIZER, REPORTS HER SON OR DAUGHTER WILL PICK HER UP FOR DISCHARGE HOME. CM NOTIFIED DR. MICHAUD OF PT NOT HAVING A WORKING CPAP AT HOME. CM CALLED [employer] [phone], SPOKE TO MONIKA WHO TOOK OXYGEN AND NEBULIZER ORDER. CM FAXED OXYGEN AND NEBULIZER ORDERS TO [facility] AT [phone]. [facility] TO ARRANGE PORTABLE OXYGEN TO HOPITAL ROOM AND HOME OXYGEN AND NEBULIZER FOR HOME DELIVERY AFTER PT ARRIVES HOME. PT CURRENTLY ON 8 LITERS NASAL CANNULA OXYGEN; [facility] WILL NEED TO KNOW OXYGEN LITER FLOW TO COMPLETE OXYGEN ORDER. NOTIFY [facility] OF REQUIRED LITER FLOW FOR OXYGEN ORDER COMPLETION AT [phone]. Apparatus Lineman: Martin Lackey DP export: 04/26/19 3:40 p Patient Name: RUFINA HERNANDEZ Page [id number] at 0809 All edits/amendments must be made on the electronic document DICTATION DATE: 04/27/19807 WIRE TWISTER: GONZALEZ 04/27/19807 RPT#: [id number] DC DATE:04/26/19 STATUS: DIS IN [facility] [address] [place] [address] END OF REPORT
--- NOTE | 2019-04-27 17:37 | MORECARE ---
CASE MANAGEMENT DISCHARGE SUMMARY PATIENT: RUFINA HERNANDEZ UNIT: [id number] ADM DATE: 04/16/19 AGE: 63 : 59 SEX: F ROOM/BED: D.2105 AUTHOR: DOMINGA,DOC PHYSICIAN: REFERRING PHYSICIAN: ERUM NIÑO MD DATE OF SERVICE: 04/27/19 Discharge Plan Patient Name: RUFINA HERNANDEZ Facility: [facility]:[place] : 1955 Planned Disposition: Home Anticipated Discharge Date: 04/23/19 Discharge Date: 04/26/2019 Expected LOS: 7 Initial Reviewer: [email or web address] Initial Review Date: 04/16/2019 Generated: 04/27/19 6:36 pm Comments DCP- Discharge Planning Updated by [id number]: Ca Agudelo on 04/26/19 3:[address] LATE ENTRY PATIENT WAS AMBULATED AND PULSE OXY READING IMPROVED. PATIENT DID NOT QUALIFY FOR OXYGEN WITH ABG READINGS. DR MICHAUD HAS APPROVED DISCHARGE TO HOME WITHOUT THE OXYGEN. KENDRICK CALLED [facility]. REC CB FROM THE OPTICAL LABORATORY TECHNICIAN. ADVISED HIM WE STILL NEED THE NEBULIZER BUT OXYGEN WOULD NOT BE NEEDED. HE STATED HE WOULD SPEAK TO HIS THERAPIST OCCUPATIONAL. [id number] PATIENT TELLS THE NURSE SHE CANNOT AFFORD THE NEBULIZER OR HER MEDS. CM SPOKE W/ TEACHER OF THE HEARING IMPAIRED REGARDING THE MEDS. REQUESTED HER TO FOLLOW UP WITH DR MICHAUD. CM CALLED [facility]. NEBULIZER SHOULD BE COVERED BY HER INSURER. KENDRICK SPOKE W/ THE ONCALL AND INSTRUCTED HIM TO CALL THE PATIENT IN HER ROOM. KENDRICK SPOKE W/ THE PATIENT. SHE HAS SPOKEN WITH THE OPTICAL LABORATORY TECHNICIAN. HE WILL COUNSEL THE PORTABLE O2 TANK AND DELIVER HER NEBULIZER. SHE IS TRYING TO GET TO HER PHARMACY BEFORE 5 PM. KENDRICK REC A CALL FROM THE NURSE. EXPLAINED ALL TO EMMETT THE NURSE. DCP- Discharge Planning Updated by [id number]: Ca Agudelo on 04/26/19 1:[address] MICHAUD ROUNDED AND SPOKE WITH THE PATIENT. KENDRICK ADVISED THE PATIENT WOULD NEED REPEAT ABG'S TO QUALIFY FOR OXYGEN. DR MICHAUD ORDERED THE ABG'S. PO2 WAS 61% ON ROOM AIR AT REST ON ABG'S. THE RESPIRATORY THERAPIST NOTIFIED DR DR MICHAUD. DCP- Discharge Planning Updated by [id number]: Ca Agudelo on 04/26/19 8:[address] CM SPOKE WITH THE PATIENT. SHE WANTED TO KNOW IF SHE WAS BEING DISCHARGED. I TOLD HER RICKY STATED DR MICHAUD WOULD MAKE THAT DECISION. SHE CONFIRMS HER CXR HAS BEEN DONE TODAY. CM ADVISED SHE WOULOD NEED A REPEAT ABG PER [facility]. SHE IS ANXIOUS TO GO HOME. I ADVISED I WOULD CALL [facility] TO DELIVER THE O2 AND NEBULIZER WHEN D/C ORDERS ARE WRITTEN. DCP- Discharge Planning Updated by [id number]: Ca Agudelo on 04/26/19 8:[address] RICKY MALINA SINGER, SPOKE W/ CM. HE ADVISED IF PATIENT IS DISCHARGED TODAY SHE WILL NEED HER NEBULIZER AND HOME OXYGEN. CM ADVISED SHE MAY NEED AN UPDATED ABG. DR MICHAUD TO DETERMINE DISCHARGE DEPENDING ON HER CXR. CM SPOKE W/ EMMETT, THE PATIENT'S NURSE, TO ADVISE OF NEED FOR ABG IF SHE IS DISCHARGED TODAY PER [facility]'S INSTRUCTION. CM TO SEE THE PATIENT PER HER REQUEST. DCP- Discharge Planning Updated by [email or web address]: Martin Marshall on 04/24/19 3:[address] Patient Name: RUFINA HERNANDEZ Encounter No: [id number] : 1955 Primary Insurance: MEDICAID [place] Anticipated DC Date: 04-23-2019 Planned Disposition: Home DCP follow-up note: CM RECEIVED CALL FROM [facility], , SPOKE TO NO WHO INFORMED CM THAT PT WILL NEED NEW ABG TESTING WITHIN 2 DAYS OF DISCHARGE, PO2 WILL NEED TO BE BELOW 55 FOR PT TO QUALIFY FOR OXYGEN. PT NEEDS NEW ABG TESTING WITHIN 2 DAYS OF DISCHARGE; FAX TO [facility] AT [phone]. MARTIN MARSHALL, CASE MANAGEMENT DCP- Discharge Planning Updated by [id number]: Martin Marshall on 04/23/19 11:[address] Patient Name: RUFINA HERNANDEZ Encounter No: [id number] : 1955 Primary Insurance: MEDICAID [place] Anticipated DC Date: 04-23-2019 Planned Disposition: Home: DCP follow-up note: CM SPOKE TO MALINA SINGER WHO INFORMED CM THAT THEY ARE EXPECTING OXYGEN AND NEBULIZER ORDERS AT THEIR OFFICE TO SIGN. CM RECEIVED DISCHARGE ORDERS, MET WITH PT IN ROOM WHO REPORTS SHE NEEDS OXYGEN AND NEBULIZER AND HAS NOT RECEIVED IT YET. PT WANTS TO SPEAK TO DR. MICHAUD ABOUT SPOT ON LUNG BEFORE LEAVING TODAY. PT REPORTS SHE HAS NO OTHER DISHCHARGE NEEDS, HER MOTHER IS HERE TO TAKE HER HOME TODAY AFTER SHE GETS OXYGEN AND NEBLULIZER. CM SPOKE TO DR. MICHAUD VIA PHONE WHO WILL SEE PT WHEN HE IS ABLE TODAY AND THAT PT TOLD HIM THAT THE CPAP SHE HAS CURRENTLY DOES WORK AND ONLY NEEDS NEW FILTER. PT WILL NOT NEED TRILOGY AND [facility]. CM NOTIFIED PT. CM CALLED [facility], , LEFT MESSAGE FROM [employer] WHO IS PROCESSING ORDER FOR OXYGEN AND NEBULIZER, NOTIFIED THAT PT IS ON 4 LITERS NOW AND IS READY TO DISCHARGE, NEEDING OXYGEN TO HOSPITAL FOR DISCHARGE HOME TODAY WITH REQUESTED HOME DELIVERY OF HOME OXYGEN UNIT AND NEBULIZER. [facility] TO DELIVER PORTABLE OXYGEN TO ROOM TODAY AND HOME OXYGEN AND NEBULIZER FOR HOME DELIVERY AFTER PT ARRIVES HOME. Insulation Power Unit Tender: Martin Marshall DCP- Discharge Planning Updated by [id number]: Martin Marshall on 04/22/19 11:[address] Patient Name: RUFINA HERNANDEZ Admission Status: ER Accout number: [id number] Admission Date: 04-16-2019 : 1955 Admission Diagnosis: Attending: ALO Current LOS: 6 Anticipated DC Date: 04-23-2019 Planned Disposition: Home Primary Insurance: MED[place]ID [place] Discharge Planning Comments: CM MET WITH PT IN ROOM TO DISCUSS DISCHARGE PLANNING AND NEEDS. PT REPORTS LIVING AT HOME INDEPENDENTLY WITH HER ADULT SON AND DAUGHTER. PT HAS NO MEDICAL EQUIPMENT; PT HAS A CPAP THAT DOES NOT WORK AND HAS NOT HAD A SLEEP STUDY IN YEARS. PT WOULD LIKE TO USE [employer] FOR HER MEDICAL EQUIPMENT IT IS THE CLOSEST TO HER HOME, CHOICE SIGNED. PT HAS NO OUTSIDE SERVICES ASSISTING IN THE HOME. CM DISCUSSED AVAILABILITY OF HOME HEALTH, REHAB SERVICES AND MEDICAL EQUIPMENT. PT DENIES DISCHARGE NEEDS OTHER THAN OXYGEN AND NEBULIZER, REPORTS HER SON OR DAUGHTER WILL PICK HER UP FOR DISCHARGE HOME. CM NOTIFIED DR. MICHAUD OF PT NOT HAVING A WORKING CPAP AT HOME. CM CALLED [facility] [phone], SPOKE TO MONIKA WHO TOOK OXYGEN AND NEBULIZER ORDER. CM FAXED OXYGEN AND NEBULIZER ORDERS TO [facility] AT [phone]. [facility] TO ARRANGE PORTABLE OXYGEN TO HOPITAL ROOM AND HOME OXYGEN AND NEBULIZER FOR HOME DELIVERY AFTER PT ARRIVES HOME. PT CURRENTLY ON 8 LITERS NASAL CANNULA OXYGEN; [facility] WILL NEED TO KNOW OXYGEN LITER FLOW TO COMPLETE OXYGEN ORDER. NOTIFY [facility] OF REQUIRED LITER FLOW FOR OXYGEN ORDER COMPLETION AT [phone]. Insulation Power Unit Tender: Martin Marshall External Providers [facility] Next Contact Date: 04/22/2019 Service Request Date: Service Type: Resolution: Reviewer: Comments: Last DP export: 04/27/19 7:09 a Patient Name: RUFINA HRENANDEZ Page [phone] at 1737 All edits/amendments must be made on the electronic document DICTATION DATE: 04/27/19 1736 CESSPOOL CLEANER: GONZALEZ 04/27/19 1736 RPT#: [id number] DC DATE:04/26/19 STATUS: DIS IN [facility] [address] [place] [address] END OF REPORT
== END 2019-04-26 17:11 | disposition home or self-care (01) | DRG 250 ==
LOC: D.ER 03:32 → D.M2 04:54
PROVIDERS: Emergency Medicine; Internal Medicine Cardiovascular Disease; Internal Medicine Pulmonary Disease; Legal Medicine; ADMIT Emergency Medicine; ATTEND Emergency Medicine
PROC: 5A09457 Assistance with Respiratory Ventilation, 24-96 Consecutive Hours, Continuous Positive Airway Pressure (ICD-10-PCS; 2019-04-16)
PROC: B2111ZZ Fluoroscopy of Multiple Coronary Arteries using Low Osmolar Contrast (ICD-10-PCS; 2019-04-17)
PROC: B2151ZZ Fluoroscopy of Left Heart using Low Osmolar Contrast (ICD-10-PCS; 2019-04-17)
PROC: 02703ZZ Dilation of Coronary Artery, One Artery, Percutaneous Approach (ICD-10-PCS; principal; 2019-04-17 13:00)
PROC: 4A023N7 Measurement of Cardiac Sampling and Pressure, Left Heart, Percutaneous Approach (ICD-10-PCS; 2019-04-17 13:00)
PROC: 5A09357 Assistance with Respiratory Ventilation, Less than 24 Consecutive Hours, Continuous Positive Airway Pressure (ICD-10-PCS; 2019-04-20)
DX: I50.31 Acute diastolic (congestive) heart failure (principal); J96.01 Acute respiratory failure with hypoxia; J96.02 Acute respiratory failure with hypercapnia; J18.9 Pneumonia, unspecified organism; J44.0 Chronic obstructive pulmonary disease with (acute) lower respiratory infection; Z68.41 Body mass index [BMI] 40.0-44.9, adult; T82.855A Stenosis of coronary artery stent, initial encounter; J98.11 Atelectasis; J44.1 Chronic obstructive pulmonary disease with (acute) exacerbation; R04.2 Hemoptysis; I25.110 Atherosclerotic heart disease of native coronary artery with unstable angina pectoris; I11.0 Hypertensive heart disease with heart failure; J20.9 Acute bronchitis, unspecified; E66.01 Morbid (severe) obesity due to excess calories; Y84.9 Medical procedure, unspecified as the cause of abnormal reaction of the patient, or of later complication, without mention of misadventure at the time of the procedure; Z86.19 Personal history of other infectious and parasitic diseases; J81.0 Acute pulmonary edema

== ENCOUNTER → 2019-05-21 11:49 | Outpatient (CLI) | payer MEDICAID ==
[2019-04-17 11:33] VITALS: BMI 41.0
[~2019-05-21 11:49] MED LIST changes: +BROVANA15 MCG/2 M INH; +CELEXA40 MG PO; +IPRAT-ALBUT 0.5-3 ML UPD; +OMNICEF300 MG PO; +VIBRAMYCIN 100100 MG PO
== END | disposition home or self-care (01) ==
LOC: D.RAD 11:49 → D.RT 13:00
PROVIDERS: ATTEND Internal Medicine Pulmonary Disease
DX: J96.02 Acute respiratory failure with hypercapnia (principal); J96.01 Acute respiratory failure with hypoxia; J44.9 Chronic obstructive pulmonary disease, unspecified; J40 Bronchitis, not specified as acute or chronic

== ENCOUNTER → 2019-07-14 07:34 | Outpatient (CLI) | payer MEDICAID ==
[2019-04-17 11:33] VITALS: BMI 41.0
[2019-07-14 10:06] LABS: BASOPHILS 0.4 % (0-2); EOSINOPHILS 0.6 % (0-7); HEMATOCRIT 45.8 % (36.0-48.0); HEMOGLOBIN 14.4 g/dL (12-16); IMMATURE GRANULOCYTES 1.1 % (0-5); LYMPHOCYTES 21.2 % (15-50); MCH 26.6 pg (26.0-34.0); MCHC 31.4 g/dL (31.0-37.0); MCV 84.7 fL (80.0-100.0); MEAN PLATELET VOLUME 8.6 fL (7.4-10.4); MONOCYTES 4.9 % (2-11); NEUTROPHILS 71.8 % (40-80); RBC 5.41 10x6/uL (4.00-5.40); RDW 21.2 % (11.5-14.5); WBC 10.1 10x3/uL (4.8-10.8)
[2019-07-14 10:12] LABS: PLATELET COUNT 351 10x3/uL (130-400)
[2019-07-15 05:08] LABS: IMMUNOGLOBULIN A 299 mg/dL (87-352)
[2019-07-16 12:08] LABS: IGG SUBCLASS 1 684 mg/dL (248-810); IGG SUBCLASS 2 277 mg/dL (130-555); IGG SUBCLASS 3 40 mg/dL (15-102); IGG SUBCLASS 4 36 mg/dL (2-96); IGGS - IGG SERUM 1073 mg/dL (586-1602)
== END | disposition home or self-care (01) ==
LOC: D.LAB 07:34
PROVIDERS: ATTEND Internal Medicine Pulmonary Disease
DX: J44.9 Chronic obstructive pulmonary disease, unspecified (principal); J30.9 Allergic rhinitis, unspecified

== ENCOUNTER 2019-08-03 07:11 | Day surgery (SDC) | payer MEDICAID ==
[~2019-08-03] VITALS: Ht 157.5 cm; Wt 101.8 kg
[2019-08-03 07:49] LABS: INR 1.01 (0.85-1.17); PROTIME 13.2 SECONDS (11.6-15.0)
[2019-08-03 07:50] LABS: APTT 29.3 SECONDS (22.8-39.4); HEMATOCRIT 45.2 % (36.0-48.0); HEMOGLOBIN 14.2 g/dL (12-16); MCH 26.7 pg (26.0-34.0); MCHC 31.4 g/dL (31.0-37.0); MCV 85.1 fL (80.0-100.0); MEAN PLATELET VOLUME 8.7 fL (7.4-10.4); RBC 5.31 10x6/uL (4.00-5.40); WBC 10.4 10x3/uL (4.8-10.8)
[2019-08-03 07:54] LABS: ALBUMIN 3.5 g/dL (3.4-5.0); ALKALINE PHOSPHATASE 125 U/L (30-120); ALT (SGPT) 17 U/L (10-68); BILIRUBIN - TOTAL 0.52 mg/dL (0.2-1.3); CALC OSMOLALITY 282 mosm/kg (275-300); CALCIUM 8.6 mg/dL (8.5-10.1); CARBON DIOXIDE 30.3 mmol/L (21.0-32.0); CHLORIDE - SERUM 102 mmol/L (98-107); CREATININE - SERUM 0.7 mg/dL (0.6-1.3); GLUCOSE 127 mg/dL (74-106); POTASSIUM - SERUM 3.5 mmol/L (3.5-5.1); PROTEIN - SERUM 7.9 g/dL (6.4-8.2); SODIUM 142 mmol/L (136-145); UREA NITROGEN 7 mg/dL (7-18); eGFR NON AFRICAN AMERICAN 90 mL/min (90-120)
[2019-08-03 07:55] VITALS: Ht 157.5 cm; Wt 101.8 kg
[2019-08-03] MEDS ORDERED: TRAZODONE HCL150 MG PO (07:58)
[2019-08-03] MEDS ORDERED: CELEXA40 MG PO (07:59)
[2019-08-03] MEDS ORDERED: ABILIFY10 MG PO (07:59)
[2019-08-03] MEDS ORDERED: SINGULAIR10 MG PO (07:59)
[2019-08-03] MEDS ORDERED: SYMBICORT 16010.2 GM INH (08:00)
--- NOTE | 2019-08-03 10:43 | NUR ---
BEHAVIORAL HEALTH NURSE EVALUATING PT AT THIS TIME.
--- NOTE | 2019-08-03 10:43 | NUR ---
DC INSTRUCTIONS GIVEN TO PT. STATES UNDERSTANDING. DC'D IV CATH FULLY INTACT.
--- NOTE | 2019-08-03 10:45 | NUR ---
DR RIVERO NOTIFIED AND REVIEWED PT'S BEHAVIOR AND ASSESSMENT. PT IS A LOW RISK. RESOURCES GIVEN AND SHE VERBALIZES UNDERSTANDING.
--- NOTE | 2019-08-03 10:54 | NUR ---
PT LEFT UNIT VIA WC AT 1045
--- NOTE | 2019-08-04 09:55 | OP ---
PATIENT NAME: RUFINA HERNANDEZ MEDICAL RECORD: [id number] :[birth year] LOCATION:[facility] ADMISSION DATE: SURGEON: UTE ANNA DO DATE OF OPERATION: 08/03/2019 PROCEDURE: Colonoscopy with polypectomy. INDICATIONS FOR PROCEDURE: History of colon polyps. This is a 3-year recall. The patient also has a history of chronic constipation, reported hematochezia, and hemorrhoids. SCOPE: Olympus video pediatric colonoscope. MEDICATIONS: Propofol 520 mg IV per anesthesia. WITHDRAWAL TIME: 21 minutes. ESTIMATED BLOOD LOSS: Minimal. COMPLICATIONS: None. FINDINGS: Informed consent was given. The patient was made comfortable with the above medication. After reaching an adequate level of sedation by slow IV push, the patient was placed on her left side. A digital rectal examination was performed and revealed external hemorrhoids. The endoscope was advanced under direct visualization through the rectum to the cecum, confirmed by the presence of the appendiceal orifice and ileocecal valve. The endoscope was slowly withdrawn. Mucosa was carefully examined. The prep quality was fair. There was evidence of mild diverticulosis involving the sigmoid colon. There were 5 polyps visualized on today's examination. Two were located in the ascending colon. They were benign appearing and sessile and ranged in size from 6-9 mm in diameter. They were both removed using a hot snare. In the transverse colon, there was a single benign-appearing sessile polyp, which measured approximately 8 mm in diameter. It was removed using a hot snare. In the sigmoid colon, there were two separate benign-appearing sessile polyps, which ranged in size from 4-6 mm in diameter. They were both removed using a hot snare. Retroflexion was performed in the rectum with visualization of grade I internal hemorrhoids without bleeding. The endoscope was withdrawn from the patient. The patient tolerated the procedure well and there were no complications. IMPRESSION: 1. Mild diverticulosis of the sigmoid colon. 2. Internal and external hemorrhoids that are not bleeding. 3. Five polyps as described above, removed using a hot snare. PLAN AND RECOMMENDATIONS: 1. Discharge home when recovery parameters are met. 2. Follow up biopsy specimen results. 3. High fiber diet. 4. Continue current medications. 5. Recall colonoscopy in 2-3 years based on personal history of polyps. TRANSINT:[id number] Voice Confirmation ID: [id number] DOCUMENT ID: [id number] OPERATIVE REPORT [id number] RUFINA HERNANDEZ,UTE Negron DO at 0955 CC: [id number] DICTATION DATE: 08/03/19 1010 PSYCHIATRIC CNS: 08/03/19 1710 [facility] 08/03/19 [place] [id number] [place] [id number]
== END 2019-08-03 10:48 | disposition home or self-care (01) ==
LOC: D.OPS 07:11
PROVIDERS: Anesthesiology; ATTEND Internal Medicine Gastroenterology
DX: K63.5 Polyp of colon (principal); Z86.010 Personal history of colon polyps; K59.09 Other constipation; J44.9 Chronic obstructive pulmonary disease, unspecified; Z72.0 Tobacco use; K22.70 Barrett's esophagus without dysplasia; K92.1 Melena; K64.9 Unspecified hemorrhoids

== ENCOUNTER 2019-08-17 13:42 | Emergency (ER) | payer MEDICAID ==
[~2019-08-17] VITALS: Ht 160 cm; Wt 93.6 kg
[~2019-08-17 13:42] MED LIST changes: +ABILIFY10 MG PO; +SINGULAIR10 MG PO; +SYMBICORT 16010.2 GM INH; +TRAZODONE HCL150 MG PO
[2019-08-17 13:47] VITALS: Ht 160 cm; Wt 93.6 kg
[2019-08-17 14:32] LABS: BASOPHILS 0.4 % (0-2); EOSINOPHILS 0.8 % (0-7); HEMATOCRIT 44.6 % (36.0-48.0); HEMOGLOBIN 13.5 g/dL (12-16); LYMPHOCYTES 21.8 % (15-50); MCH 25.4 pg (26.0-34.0); MCHC 30.3 g/dL (31.0-37.0); MEAN PLATELET VOLUME 8.4 fL (7.4-10.4); MONOCYTES 7.3 % (2-11); NEUTROPHILS 68.7 % (40-80); PLATELET COUNT 279 10x3/uL (130-400); RBC 5.31 10x6/uL (4.00-5.40); WBC 10.7 10x3/uL (4.8-10.8)
[2019-08-17 14:39] LABS: CALC OSMOLALITY 275 mosm/kg (275-300); CALCIUM 8.3 mg/dL (8.5-10.1); CARBON DIOXIDE 32.8 mmol/L (21.0-32.0); CHLORIDE - SERUM 100 mmol/L (98-107); CREATININE - SERUM 0.8 mg/dL (0.6-1.3); GLUCOSE 130 mg/dL (74-106); POTASSIUM - SERUM 3.9 mmol/L (3.5-5.1); SODIUM 137 mmol/L (136-145); UREA NITROGEN 13 mg/dL (7-18); eGFR NON AFRICAN AMERICAN 77 mL/min (90-120)
[2019-08-17 14:41] LABS: APTT 27.6 SECONDS (22.8-39.4); INR 0.95 (0.85-1.17); PROTIME 12.7 SECONDS (11.6-15.0)
[2019-08-17 14:56] LABS: ALBUMIN 3.3 g/dL (3.4-5.0); ALKALINE PHOSPHATASE 111 U/L (30-120); ALT (SGPT) 16 U/L (10-68); BILIRUBIN - TOTAL 0.25 mg/dL (0.2-1.3); CREATINE KINASE 49 UL (21-215); PRO BNP 159 pg/mL (0-125); PROTEIN - SERUM 7.4 g/dL (6.4-8.2)
[2019-08-17 14:59] LABS: TROPONIN-I < 0.017 ng/mL (0.000-0.060)
[2019-08-17] MEDS ORDERED: CYCLOBENZAPRINE10 MG PO (15:25)
[2019-08-17 16:16] VITALS: BP 142/64
== END 2019-08-17 16:16 | disposition home or self-care (01) ==
LOC: D.ER 13:42
PROVIDERS: Family Medicine
DX: R06.00 Dyspnea, unspecified (principal); R06.89 Other abnormalities of breathing; R09.02 Hypoxemia; I11.0 Hypertensive heart disease with heart failure; I50.9 Heart failure, unspecified; J44.9 Chronic obstructive pulmonary disease, unspecified; K21.9 Gastro-esophageal reflux disease without esophagitis; Z72.0 Tobacco use; G62.9 Polyneuropathy, unspecified; R05 Cough

== ENCOUNTER → 2019-08-25 15:28 | Outpatient (CLI) | payer MEDICAID ==
[2019-08-17 13:47] VITALS: BMI 36.5
[~2019-08-25 15:28] MED LIST changes: +CYCLOBENZAPRINE10 MG PO
== END | disposition home or self-care (01) ==
LOC: D.RAD 15:28
PROVIDERS: ATTEND Emergency Medicine
DX: M54.6 Pain in thoracic spine (principal)

== ENCOUNTER → 2019-09-03 09:43 | Outpatient (CLI) | payer MEDICAID ==
[2019-08-17 13:47] VITALS: BMI 36.5
== END | disposition home or self-care (01) ==
LOC: D.HCCARDIO 09:30
PROVIDERS: ATTEND Internal Medicine Cardiovascular Disease
DX: I25.10 Atherosclerotic heart disease of native coronary artery without angina pectoris (principal)

== ENCOUNTER 2019-09-28 06:49 | Outpatient (CLI) | payer MEDICAID ==
[~2019-09-28] VITALS: Ht 160 cm; Wt 91.9 kg
--- NOTE | ~2019-09-28 | HEMODYNAMI ---
PATIENT:RUFINA HERNANDEZ MEDICAL RECORD: [id number] : [birth year] LOCATION:[facility] ADMISSION DATE: 09/28/19 Generatedon:09/28/201910:00 Patient name: RUFINA HERNANDEZ Patient #: [id number] SSN: [id number] : 1955 Date of study: 09/28/2019 Page: Of Hemodynamic Procedure Report Patient Data Patient Demographics Procedure consent was obtained First Name: RUFINA Gender: Female Last Name: DAVID : 1955 Middle Initial: DEONDRE Age: 64 year(s) Patient #: [id number] Race: Ethnicity: or SSN: [id number] Additional ID: [id number] Contact details [address]: [address] [place] [address] State: [place] City: [place] Zip code: [address] Past Medical History History of disease Date Diagnosis Comments CAD Allergies Allergen Reaction Date Comments Reported Morphine 05/22/2016 Penicillins 05/22/2016 Toradol 05/22/2016 Other allergy 05/14/2018 Lyrica, Morphine, PCN, Toradol Other allergy 04/17/2019 PCN, CORTISONE, TORADOL , LYRICA SULFA, MORPINE Other allergy 09/28/2019 Lyrica, Morphine, PCN, Toradol Admission Admission Data Admission Date: 09/28/2019 Admission Time: 6:49 Arrival Date: 09/28/2019 Arrival Time: 0:00 Procedure Procedure Types Cath Procedure Diagnostic Procedure LHC LHC w/Coronaries Sedation Charges Moderate Sedation up to 15 minutes Procedure Description Procedure Date Procedure Date: 09/28/2019 Procedure Start Time: 9:50 Procedure End Time: 9:59 Procedure Staff Name Function Shankar Greenwood MD Performing Physician Faina Brock RT Monitor Erika Flores RT Scrub Vida Brumfield RN Nurse Procedure Data Cath Procedure Fluoroscopy Diagnostic fluoroscopy Total fluoroscopy Time: 1.1 time: 1.1 min min Diagnostic fluoroscopy Total fluoroscopy dose: 555 dose: 555 mGy mGy Contrast Material Contrast Material Type Amount (ml) Isovue 300 53 Entry Location Entry Primary Successful Side Size Upsize Upsize Entry Closure Succes sful Closure Location (Fr) 1 (Fr) 2 (Fr) Remarks Device Remarks Femoral Right 5 Fr Exoseal artery Estimated blood loss: 10 ml Diagnostic catheters Device Type Used For End Catheter Placement MULTIPACK JL 4.0 5Fr Procedure catheter MULTIPACK 3DRC 5Fr Procedure catheter MULTIPACK Pigtail 5 Fr Ventriculography catheter Procedure Complications No complications Procedure Medications Medication Administration Route Dosage 0.9% NaCl I.V. 100 ml/hr Oxygen etCO2 Nasal cannula 2 l/min Lidocaine 2% added to field 20 Heparin Flush Bag added to field 2 bags (1000units/500ml NS) Versed I.V. 2 mg Fentanyl I.V. 50 mcg Versed I.V. 2 mg Fentanyl I.V. 50 mcg Hemodynamics Rest Heart Rate: 78 (bpm) Pressure Samples Time Site Value (mmHg) Purpose Heart Use Rate(bpm) 9:55 LV 157/9,8 Snapshot 78 9:55 LV 163/8,9 Snapshot 80 9:56 AO 133/55(90) Pullback 76 Gradients Valve Time Site Site 2 Mean SEP/DFP Peak To Heart Use 1 (mmHg) (sec/min) Peak Rate (mmHg) (bpm) Aortic 9:56 LV AO 43 21 76 133/55(90) Calculations Valve P-P Mean Valve Index Valve Source Name Gradient Area Flow (cm2) Aortic 43 43 Snapshots Pre Cath Intra NCS Post Cath Vital Signs Time Heart Resp SPO2 etCO2 NIBP (mmHg) Rhythm Pain Sedation Rate (ipm) (%) (mmHg) Status Level (bpm) 9:37:20 79 22 93 45.6 140/69(104) NSR 0 (11) 10(A) , No pain 9:41:45 78 30 94 41.9 152/65(115) NSR 0 (11) 10(A) , No pain 9:46:11 79 30 95 47.1 152/73(117) NSR 0 (11) 10(A) , No pain 9:50:33 77 15 94 20.2 150/72(119) NSR 0 (11) 10(A) , No pain 9:54:55 81 14 92 17.9 149/75(114) NSR 0 (11) 10(A) , No pain 9:59:21 75 14 93 25.4 153/68(102) NSR 0 (11) 10(A) , No pain Medications Time Medication Route Dose Verified Delivered Reason Notes Effe ctiveness by by 9:36:32 0.9% NaCl I.V. 100 Shankar Vida used for ml/hr [facility] procedure MD BERNARDO 9:36:38 Oxygen etCO2 2 Shankar Vida used for Nasal l/min [facility] procedure cannula MD BERNARDO 9:36:43 Lidocaine 2% added 20ml Shankar Shankar for local to vial [facility] anesthetic field MD WINKLER 9:36:47 Heparin Flush added 2 Shankar Shankar used for Bag to bags [facility] procedure (1000units/500ml field MD WINKLER NS) 9:46:24 Versed I.V. 2 mg Shankar Vida for [facility] sedation MD BERNARDO 9:46:28 Fentanyl I.V. 50 Shankar Vida for mcg [facility] sedation MD BERNARDO 9:53:30 Versed I.V. 2 mg Shankar Vida for [facility] sedation MD BERNARDO 9:53:33 Fentanyl I.V. 50 Shankar Vida for mcg [facility] sedation MD BERNARDOnatural science curator Log Time Note 9:11:10 Informed consent obtained and on chart 9:11:17 Arrival Date: 09/28/2019 12:00:00 AM 9:20:09 Procedure Status Elective Heart Cath (OP). 9:20:14 Erika Flores RT(R) (CV) sent for patient. Start room use. 9:20:15 Time tracking: Regular hours (M-F 7:00 - 5:00) 9:20:20 Plan of Care:Hemodynamics will remain stable., Cardiac rhythm will remain stable., Comfort level will be maintained., Respiratory function will remain adequate., Patient/ family verbilizes understanding of procedure., Procedure tolerated without complication., Recovers from procedure without complications.. 9:22:55 Patient received from Pre/Post Procedure Room to CCL 1 Alert and oriented. Tansferred to table in Supine position. 9:22:58 Warm blankets applied, and manuela hugger turned on for patient comfort. 9:22:59 Correct patient and procedure confirmed by team. 9:23:46 ECG and BP/O2 sat monitors applied to patient. 9:24:28 H&P Date Dictated: 09/21/2019 Within 30 days and on chart., H&P Addendum completed by physician on day of procedure. (MUST COMPLETE FOR ALL OUTPATIENTS). 9:24:34 Pre-procedure instructions explained to patient. 9:24:45 Family in patients room. 9:25:49 Patient allergic to Other allergyLyrica, Morphine, PCN, Toradol 9:26:01 Is the patient allergic to Iodine/contrast media? No. 9:26:03 Was the patient premedicated? Yes 9:31:11 Is patient on blood thinner?No 9:32:41 Patient diabetic? No. 9:32:50 Snore? Yes 9:32:51 Sleep apnea? Yes 9:33:00 Airway obstruction? Yes copd 9:33:06 Dentures? No ? 9:33:12 Patient pain scale 0/10 ?. 9:33:42 IV patent on arrival in left forearm with 0.9% NaCl at O. 9:34:15 Lab results completed and on chart. 9:34:47 Right groin area was prepped with chlora-prep and draped in sterile fashion 9:34:56 Sharps counted by scrub and verified by R.N. 9:36:07 Vital chart was started 9:36:32 0.9% NaCl 100 ml/hr I.V. was administered by Vida Brumfield RN; used for procedure; Verbal order read back and verified. 9:36:38 Oxygen 2 l/min etCO2 Nasal cannula was administered by Vida rBumfield RN; used for procedure; Verbal order read back and verified. 9:36:43 Lidocaine 2% 20ml vial added to field was administered by Shankar Greenwood MD; for local anesthetic; Verbal order read back and verified. 9:36:47 Heparin Flush Bag (1000units/500ml NS) 2 bags added to field was administered by Shankar Greenwood MD; used for procedure; Verbal order read back and verified. 9:38:40 Pt arrived to w/ SpO2 91% on RA. Pt wears O2 @ home. SpO2 94% on 2LNC. MD aware. 9:41:34 Physician arrived 9:44:42 --------ALL STOP TIME OUT------ 9:44:43 Final Timeout: patient, procedure, and site verified with staff and physician. All members of the team are in agreement. 9:44:45 Right groin site verified by team. 9:44:50 Fire Safety Assessment: A--An alcohol-based skin anteseptic being used preoperatively., C--Open oxygen or nitrous oxide is being used., D--An ESU, laser, or fiber-optic light is being used. 9:44:54 Physical assessment completed. ASA score P 2 - A patient with mild systemic disease as per Shankar Greenwood MD. 9:44:57 2) 60-89 Mildly reduced kidney function, and other findings (as for stage 1) point to kidney disease. 9:45:02 Maximum allowable contrast dose (3.7 X eGFR X 0.75)185 ml. 9:45:08 Sedation plan: IV Moderate Sedation Medication:Versed, Fentanyl 9:45:17 Use device set Femoral Dx 9:45:19 ACIST Syringe (49161) opened to sterile field. 9:45:19 Bag Decanter (2002S) opened to sterile field. 9:45:22 Medline Cath Pack ([id number]) opened to sterile field. 9:45:23 ACIST Hand Control (37567) opened to sterile field. 9:45:24 ACIST Manifold (18416) opened to sterile field. 9:45:24 DIAGNOSTIC Multipack 5Fr catheter set ([id number]) opened to sterile field. 9:45:26 Tegaderm 4 x 4 (1626W) opened to sterile field. 9:45:27 SHEATH 5FR Deloit (MFX266) opened to sterile field. 9:45:28 EMERALD Guide Wire (673-557) opened to sterile field. 9:46:24 Versed 2 mg I.V. was administered by Vida Brumfield RN; for sedation; Verbal order read back and verified. 9:46:28 Fentanyl 50 mcg I.V. was administered by Vida Brumfield RN; for sedation; Verbal order read back and verified. 9:50:06 Procedure started. 9:50:06 Full Disclosure recording started 9:50:32 Local anesthetic to right femoral artery with Lidocaine 2% by Shankar Greenwood MD.INITIAL ACCESS ONLY 9:50:41 A 5 Fr sheath was inserted into the Right Femoral artery 9:51:09 A MULTIPACK JL 4.0 5Fr catheter was advanced over the wire and used for Procedure. 9:51:11 LCA angiography performed. 9:53:04 Catheter removed. 9:53:14 A MULTIPACK 3DRC 5Fr catheter was advanced over the wire and used for Procedure. 9:53:22 RCA angiography performed. 9:53:30 Versed 2 mg I.V. was administered by Vida Brumfield RN; for sedation; Verbal order read back and verified. 9:53:33 Fentanyl 50 mcg I.V. was administered by Vida Brumfield RN; for sedation; Verbal order read back and verified. 9:54:14 Catheter removed. 9:54:25 A MULTIPACK Pigtail 5 Fr catheter was advanced over the wire and used for Ventriculography. 9:55:58 LV gram done using WEEKS 9:56:04 EF : 55 % 9:56:09 Catheter removed. 9:56:14 EXOSEAL 5Fr (EX500) opened to sterile field. 9:56:25 Sheath removed intact; hemostasis achieved with Exoseal to the Right Femoral artery. 9:57:14 Procedure ended.(Physican Out) 9:57:29 Fluoroscopy time 01.10 minutes. 9:57:34 Fluoroscopy dose: 555 mGy 9:57:34 Flurop Dose total: 555 9:57:41 Dose Area Product 46674 mGy/cm. 9:57:45 Contrast amount:Isovue 300 53ml. 9:57:47 Maximum allowable dose exceeded? No. 9:57:49 Sharps counted by scrub and verified by R.N. 9:57:50 Insertion/operative site no bleeding no hematoma. 9:57:54 Post right femoral artery:stable 9:58:06 Post-procedure physical assessment completed. ASA score P 2 - A patient with mild systemic disease as per Shankar Greenwood MD. 9:58:08 Post procedure rhythm: unchanged. 9:58:11 Estimated blood loss: 10 ml 9:58:13 Post procedure instruction explained to patient.Patient verbalizes understanding. 9:58:33 Procedure type changed to Cath procedure, Diagnostic procedure, LHC, LHC w/Coronaries, Sedation Charges, Moderate Sedation up to 15 minutes 9:58:44 Procedure and supply charges have been captured, reviewed, submitted and are correct. 9:59:11 Procedure Complication : No complications 9:59:16 Vital chart was stopped 9:59:20 [facility] Findings: mild to moderate CAD (<70%) 9:59:25 Patient transfered to Pre/Post Procedure Room with Stretcher. 9:59:28 Procedure ended. 9:59:28 Full Disclosure recording stopped 9:59:43 End room use (Document Last) 10:00:04 End room use (Document Last) 10:00:27 End room use (Document Last) Device Usage Item Name Manufacture Quantity Catalog Hospital Part Current Minimal L ot# / Number Charge Number Stock Stock Serial# Code ACIST Acist 1 84593 926288 959166 101673 20 Syringe Medical (49726) Systems Inc Bag Microtek 1 2001S 617940 62421 847977 5 Decanter Medical Inc. () Medline Medline 1 [id number] 527362 81879 778786 5 Cath Pack ([id number]) ACIST Hand Acist 1 34531 322534 311894 428821 5 Control Medical (82384) Systems Inc ACIST Acist 1 94796 967373 974067 805953 5 Manifold Medical (42291) Systems Inc DIAGNOSTIC Cardinal 1 [id number] 291363 19614 826781 30 Multipack Health 5Fr catheter set (FW9785) Tegaderm 4 3M 1 1626W 645301 178496 581563 5 x 4 (1626W) SHEATH 5FR Terumo 1 ZOD279 975012 634999 130153 5 Deloit (CRR992) EMERALD Cardinal 1 502-455 049341 667823 527557 5 Guide Wire Health (502-455) MULTIPACK Cardinal 1 322357 5 JL 4.0 5Fr Health catheter MULTIPACK Cardinal 1 239812 5 3DRC 5Fr Health catheter MULTIPACK Cardinal 1 [id number] 5 Pigtail 5 Health Fr catheter EXOSEAL 5Fr Cardinal 1 EX500 321686 904084 407670 10 (EX500) Health Signature Audit [place] Stage Time Signature Unsigned Intra-Procedure 09/28/2019 Faina Brock 10:00:04 AM RT(R) Intra-Procedure 09/28/2019 Vida Brumfield 10:00:27 AM RN Intra-Procedure 09/28/2019 Shankar Mendez 10:00:45 AM Jabier [place] [id number] [place] [address]
[2019-09-28] MEDS ORDERED: CHANTIX 1 MG TAB1 MG PO (08:02)
[2019-09-28] MEDS ORDERED: ABILIFY10 MG PO (08:03)
[2019-09-28] MEDS ORDERED: NITROQUICK0.4 MG SL (08:05)
[2019-09-28] MEDS ORDERED: STERAPRED DS 1010 MG PO (08:05)
[2019-09-28] MEDS ORDERED: CLARITIN 10 MG10 MG PO (08:06)
[2019-09-28] MEDS ORDERED: PEPCID AC20 MG PO (08:06)
[2019-09-28] MEDS ORDERED: VITAMIN D1000 UNIT PO (08:06)
[2019-09-28 08:26] VITALS: BP 151/60; Ht 160 cm; Wt 91.9 kg
[2019-09-28 08:42] LABS: BASOPHILS 0.3 % (0-2); EOSINOPHILS 0.5 % (0-7); HEMATOCRIT 49.1 % (36.0-48.0); HEMOGLOBIN 15.5 g/dL (12-16); IMMATURE GRANULOCYTES 1.8 % (0-5); LYMPHOCYTES 22.2 % (15-50); MCH 25.5 pg (26.0-34.0); MCHC 31.6 g/dL (31.0-37.0); MCV 80.8 fL (80.0-100.0); MEAN PLATELET VOLUME 8.5 fL (7.4-10.4); MONOCYTES 6.9 % (2-11); NEUTROPHILS 68.3 % (40-80); PLATELET COUNT 296 10x3/uL (130-400); RBC 6.08 10x6/uL (4.00-5.40); RDW 18.2 % (11.5-14.5); WBC 14.7 10x3/uL (4.8-10.8)
[2019-09-28 08:54] LABS: ANION GAP 9.3 mmol/L (8-16); CALCIUM 8.9 mg/dL (8.5-10.1); CARBON DIOXIDE 35.6 mmol/L (21.0-32.0); CHOL - HDL RATIO 2.2 ratio (2.3-4.1); CREATININE - SERUM 0.9 mg/dL (0.6-1.3)
[2019-09-28 09:05] LABS: POTASSIUM - SERUM 2.9 mmol/L (3.5-5.1)
--- NOTE | 2019-09-28 10:12 | NUR ---
PT ARRIVED BY STRETCHER. PLACED ON MONITORS. ASSESSMENT COMLETED. VSS. CALL LIGHT WITHIN REACH.
--- NOTE | 2019-09-28 10:27 | NUR ---
RIGHT GROIN DRESSING C/D/I. NO S/S OF HEMATOMA NOTED. CALL LIGHT WITHIN REACH. VSS AT THIS TIME. TOLERATING SIPS OF WATER. DENIES NAUSEA/PAIN.
--- NOTE | 2019-09-28 11:05 | NUR ---
RIGHT GROIN DRESSING C/D/I. NO S/S OF HEMATOMA NOTED. CALL LIGHT WITHIN REACH. VSS AT THIS TIME. HEAD OF BED INC TO 30 DEGREES. TOLERATED WELL. SET UP WITH SANDWICH TRAY AND DRINK AT THIS TIME. DENIES NAUSEA/PAIN.
--- NOTE | 2019-09-28 11:30 | NUR ---
RIGHT GROIN DRESSING C/D/I. NO S/S OF HEMATOMA NOTED. VSS AT THIS TIME. CALL LIGHT WITHIN REACH.
--- NOTE | 2019-09-28 11:45 | NUR ---
PIV D/C'D WITH CATH TIP INTACT. TOLERATED WELL. DISCUSSED DISCHARGE INSTRUCTIONS WITH PT. SHE VOICED UNDERSTANDING.
--- NOTE | 2019-09-28 12:00 | NUR ---
PT TAKEN DOWN TO VEHICLE BY WHEELCHAIR. NO S/S OF DISTRESS NOTED. ALL BELONGIGNS AND PAPERWORK IN HAND. RIGHT GROIN DRESSING C/D/I. NO S/S OF HEMATOMA NOTED.
--- NOTE | 2019-09-29 15:44 | OP ---
PATIENT NAME: RUFINA HERNANDEZ MEDICAL RECORD: [id number] LOCATION:D[facility] ADMISSION DATE: SURGEON: LILY HAYS MD DATE OF OPERATION: 09/28/2019 PROCEDURE: Left heart catheterization, selective coronary angiography, right femoral artery approach. CATHETERS: A 5-Tajik sheath, 5/4 Andree ,5/4 pig. The procedure was well tolerated. The patient returned to the brito, sheath removed. Exoseal device placed. FINDINGS: Left ventriculography in 30-degree WEEKS view: Normal wall motion, normal systolic function. There is a 30-mm gradient across the aortic valve but it is in the mild range. CORONARY ANATOMY: LEFT MAIN: Left main is free of disease. LAD: Free of disease in the diagonal system. CIRCUMFLEX: Free of disease in the marginal system. RIGHT CORONARY ARTERY: Previous stenting. Widely patent. No evidence of restenosis. No progression of [place] disease. IMPRESSION: Mild aortic stenosis, no evidence of restenosis. LV function remains normal. TRANSINT:[id number] Voice Confirmation ID: [id number] DOCUMENT ID: [id number] LILY HAYS MD at 1544 CC: [id number] DICTATION DATE: 09/28/19 1002 PIPE FITTER FIRE SPRINKLER SYSTEMS: 09/28/193 [facility] CLI 09/28/19 [id number] [place] [address]
== END 2019-09-28 12:00 | disposition home or self-care (01) ==
LOC: D.CATH 06:49
PROVIDERS: ATTEND Internal Medicine Interventional Cardiology
DX: I25.119 Atherosclerotic heart disease of native coronary artery with unspecified angina pectoris (principal); R06.00 Dyspnea, unspecified; I35.8 Other nonrheumatic aortic valve disorders; Z72.0 Tobacco use; J44.9 Chronic obstructive pulmonary disease, unspecified; E78.5 Hyperlipidemia, unspecified

== ENCOUNTER 2019-10-14 17:46 | Inpatient (IN) | payer MEDICAID ==
[~2019-10-14] VITALS: Ht 160 cm; Wt 92.1 kg
[~2019-10-14 17:46] MED LIST changes: +CLARITIN 10 MG10 MG PO; +NITROQUICK0.4 MG SL; +PEPCID AC20 MG PO; +STERAPRED DS 1010 MG PO; +VITAMIN D1000 UNIT PO
[2019-10-14] MEDS ORDERED: METOLAZONE2.5 MG PO (17:54)
[2019-10-14 18:29] LABS: HEMATOCRIT 43.8 % (36.0-48.0); HEMOGLOBIN 14.1 g/dL (12-16); LYMPHOCYTES 16.2 % (15-50); MCHC 32.2 g/dL (31.0-37.0); MCV 80.8 fL (80.0-100.0); MEAN PLATELET VOLUME 7.8 fL (7.4-10.4); NEUTROPHILS 78.6 % (40-80); PLATELET COUNT 281 10x3/uL (130-400); RBC 5.42 10x6/uL (4.00-5.40); RDW 18.7 % (11.5-14.5); WBC 12.1 10x3/uL (4.8-10.8)
[2019-10-14 18:49] LABS: ALBUMIN 3.2 g/dL (3.4-5.0); ANION GAP 6.5 mmol/L (8-16); BILIRUBIN - TOTAL 0.34 mg/dL (0.2-1.3); CALCIUM 8.4 mg/dL (8.5-10.1); CARBON DIOXIDE 37.7 mmol/L (21.0-32.0); CREATININE - SERUM 0.9 mg/dL (0.6-1.3); PROTEIN - SERUM 7.2 g/dL (6.4-8.2)
[2019-10-14 18:52] LABS: POTASSIUM - SERUM 2.2 mmol/L (3.5-5.1)
--- NOTE | 2019-10-14 20:52 | NUR ---
PT AMBULATED INDEPENDENTLY TO THE RESTROOM
--- NOTE | 2019-10-14 21:40 | NUR ---
PT PROVIDED WITH A SANDWICH AND [place] [employer] AT REQUEST
--- NOTE | 2019-10-14 23:25 | NUR ---
PT ARRIVED TO THE FLOOR. ALERT AND ORIENTED. PT STATES NO PROBLEMS AT THIS TIME. IV SITE LT FA DRESSING CLEAN DRY AND INTACT. NO SIGNS OF INFECTION OR INFULTRATION. 2LO2 NASAL CANNULA. SKIN CLEAN DRY AND INTACT. LUNG SOUNDS CLEAR. BOWEL SOUNDS ACTIVE. RT LOWER LEG REDDNESS PRESENT SWELLING AND HOT TO TOUCH. TELE MONITOR PLACED. 89 NORMAL SINUS. WILL CONITNUE PLAN OF CARE. CALL LIGHT IN REACH. BED LOWERED AND LOCKED. BED RAILS UPX1.
[2019-10-15 00:38] VITALS: BMI 36.0
[2019-10-15 04:00] VITALS: BP 168/67
[2019-10-15 06:00] LABS: CALCIUM 8.2 mg/dL (8.5-10.1); CARBON DIOXIDE 36.7 mmol/L (21.0-32.0); CHLORIDE - SERUM 93 mmol/L (98-107); SODIUM 134 mmol/L (136-145); UREA NITROGEN 14 mg/dL (7-18)
[2019-10-15 06:04] LABS: CALC OSMOLALITY 269 mosm/kg (275-300); CREATININE - SERUM 0.6 mg/dL (0.6-1.3); GLUCOSE 111 mg/dL (74-106); eGFR NON AFRICAN AMERICAN > 90 mL/min (90-120)
[2019-10-15 06:05] LABS: POTASSIUM - SERUM 2.4 mmol/L (3.5-5.1)
[2019-10-15 06:50] LABS: MCH 25.7 pg (26.0-34.0); MCHC 31.8 g/dL (31.0-37.0); MCV 80.9 fL (80.0-100.0); PLATELET COUNT 283 10x3/uL (130-400); RBC 5.44 10x6/uL (4.00-5.40); RDW 18.6 % (11.5-14.5); WBC 10.3 10x3/uL (4.8-10.8)
--- NOTE | 2019-10-15 08:10 | NUR ---
PT SITTING UP IN BED. O2 @ 2L NC IN PLACE. RESPIRATIONS SHALLOW, PT VOICES JUST AMBULATING FROM BATHROOM TO BED. IV TO LEFT FOREARM WITH NS @ 75ML/HR INFUSING VIA PUMP. SITE WITHOUT REDNESS OR EDEMA. RADIOLOGY HERE TO TAKE PT VIA W/C FOR XRAY. PT TRANSFERS FROM BED TO W/C WITHOUT ASSIST. DENIES FURTHER NEEDS OR QUESTIONS AT THIS TIME. CONTINUE POC
[2019-10-15 10:31] VITALS: BP 144/58
[2019-10-15 12:40] VITALS: Ht 160 cm; Wt 92.1 kg
[2019-10-15 13:20] VITALS: BP 158/62
[2019-10-15 14:00] LABS: BASOPHILS 1 % (0-2); LYMPHOCYTES 29 % (15-50); MONOCYTES 6 % (2-11); NEUTROPHILS 64 % (40-80); PLATELET ESTIMATE NORMAL
[2019-10-15 17:38] VITALS: BP 155/56
[2019-10-15 20:00] VITALS: BP 127/52
--- NOTE | 2019-10-15 23:48 | NUR ---
PT RESTING IN BED. EYES CLOSED. NO SIGNS OF DISTRESS. BREATHING EVEN AND UNLABORED. IV SITE LT FA DRESSING CLEAN DRY AND INTACT. NO SIGNS OF INFECTION OF INFULTRATION. 2LO2 NASAL CANNULA. BOWEL SOUNDS ACTIVE. RT LOWER LEG REDDNESS PRESENT. WILL CONTINUE PLAN OF CARE. CALL LIGHT IN REACH. BED LOWERED AND LOCKED. BED RAILS UPX2
--- NOTE | 2019-10-16 03:56 | NUR ---
I have reviewed this patient and I concur with the Shift Assessment completed by the Licensed Practical Nurse today this shift.
[2019-10-16 04:00] VITALS: BP 135/54
[2019-10-16 05:49] LABS: CALC OSMOLALITY 273 mosm/kg (275-300); CALCIUM 7.9 mg/dL (8.5-10.1); CARBON DIOXIDE 29.9 mmol/L (21.0-32.0); CHLORIDE - SERUM 100 mmol/L (98-107); CREATININE - SERUM 0.5 mg/dL (0.6-1.3); GLUCOSE 117 mg/dL (74-106); MAGNESIUM - SERUM 2.3 mg/dL (1.8-2.4); PHOSPHOROUS 3.7 mg/dL (2.5-4.9); POTASSIUM - SERUM 4.3 mmol/L (3.5-5.1); SODIUM 137 mmol/L (136-145); UREA NITROGEN 10 mg/dL (7-18); eGFR NON AFRICAN AMERICAN > 90 mL/min (90-120)
[2019-10-16 07:05] LABS: HEMATOCRIT 42.2 % (36.0-48.0); HEMOGLOBIN 13.1 g/dL (12-16); LYMPHOCYTES 26.1 % (15-50); MCH 25.8 pg (26.0-34.0); MEAN PLATELET VOLUME 8.1 fL (7.4-10.4); NEUTROPHILS 67.7 % (40-80); PLATELET COUNT 294 10x3/uL (130-400); RBC 5.08 10x6/uL (4.00-5.40)
[2019-10-16 07:16] LABS: MCV 83.1 fL (80.0-100.0); WBC 7.3 10x3/uL (4.8-10.8)
--- NOTE | 2019-10-16 08:51 | NUR ---
SHE IS HAVING PAIN IN THE FRONT AND AROUND TO HER BACK OF HER CHEST WHEN SHE BREATHS. RATES HER PAIN 9/10. PRN GIVEN FOR PAIN. SHE IS WALKING TO THE BATHROOM WITHOUT HELP. SHE IS WEARING 2 LITERS NC. THE CALL LIGHT IS WITHIN REACH.
[2019-10-16 09:47] VITALS: BP 155/56
[2019-10-16 13:13] VITALS: BP 172/58
[2019-10-16 17:09] VITALS: BP 139/57
--- NOTE | 2019-10-16 20:25 | NUR ---
SITTING UP IN BED WATCHING TV. NO COMPLAINTS AT PRESENT TIME. O2 @ 2L PER NC ON. NO DISTRESS NOTED. SL TO LFA WITOUT REDNESS OR EDEMA NOTED. RLE WITH REDNESS AND MILD EDEMA NOTED. REFUSES SCD'S.CL IN REAC
[2019-10-16 20:44] VITALS: BP 165/57
[2019-10-17 00:48] VITALS: BP 170/62
--- NOTE | 2019-10-17 02:27 | NUR ---
I have reviewed this patient and I concur with the Shift Assessment completed by the Licensed Practical Nurse today this shift.
[2019-10-17 04:00] VITALS: BP 168/72
[2019-10-17 05:59] LABS: BASOPHILS 0.2 % (0-2); EOSINOPHILS 1.8 % (0-7); HEMOGLOBIN 14.2 g/dL (12-16); IMMATURE GRANULOCYTES 1.3 % (0-5); LYMPHOCYTES 23.4 % (15-50); MCH 25.7 pg (26.0-34.0); MCHC 30.2 g/dL (31.0-37.0); MEAN PLATELET VOLUME 8.5 fL (7.4-10.4); MONOCYTES 7.1 % (2-11); NEUTROPHILS 66.2 % (40-80); PLATELET COUNT 265 10x3/uL (130-400); RBC 5.53 10x6/uL (4.00-5.40); RDW 19.3 % (11.5-14.5); WBC 8.2 10x3/uL (4.8-10.8)
[2019-10-17 06:35] LABS: CALCIUM 8.3 mg/dL (8.5-10.1); CARBON DIOXIDE 29.1 mmol/L (21.0-32.0); CHLORIDE - SERUM 103 mmol/L (98-107); GLUCOSE 108 mg/dL (74-106); MAGNESIUM - SERUM 2.4 mg/dL (1.8-2.4); PHOSPHOROUS 3.3 mg/dL (2.5-4.9); SODIUM 140 mmol/L (136-145); VANCOMYCIN - TROUGH 13.2 ug/mL (10.0-20.0); eGFR NON AFRICAN AMERICAN 90 mL/min (90-120)
[2019-10-17 06:38] LABS: CALC OSMOLALITY 277 mosm/kg (275-300); CREATININE - SERUM 0.7 mg/dL (0.6-1.3); UREA NITROGEN 6 mg/dL (7-18)
[2019-10-17] MEDS ORDERED: DOXYCYCLINE HY100 M2 PO (08:22)
[2019-10-17 10:08] VITALS: BP 179/68
--- NOTE | 2019-10-17 11:09 | NUR ---
DISCHARGE PAPERWORK SIGNED, ALL QUESTIONS ANSWERED. IV TO LEFT FOREARM DC'D, TIP INTACT. ESCORTED OUT VIA WHEELCHAIR.
== END 2019-10-17 11:09 | disposition home or self-care (01) | DRG 638 ==
LOC: D.ER 17:46 → D.MS 21:58 → OBSVTIME 21:58 → D.MS 21:58
PROVIDERS: Emergency Medicine; Family Medicine; ADMIT Emergency Medicine; ATTEND Emergency Medicine
DX: E11.628 Type 2 diabetes mellitus with other skin complications (principal); L03.115 Cellulitis of right lower limb; J44.1 Chronic obstructive pulmonary disease with (acute) exacerbation; E87.1 Hypo-osmolality and hyponatremia; E87.6 Hypokalemia; D72.829 Elevated white blood cell count, unspecified; I11.0 Hypertensive heart disease with heart failure; I50.9 Heart failure, unspecified; I25.10 Atherosclerotic heart disease of native coronary artery without angina pectoris; G89.29 Other chronic pain; R60.9 Edema, unspecified

== ENCOUNTER 2019-10-23 13:34 | Emergency (ER) | payer MEDICAID ==
[~2019-10-23] VITALS: Ht 152.4 cm; Wt 93.2 kg
[~2019-10-23 13:34] MED LIST changes: +DOXYCYCLINE HY100 M2 PO; +METOLAZONE2.5 MG PO
[2019-10-23 13:38] VITALS: Ht 152.4 cm; Wt 93.2 kg
[2019-10-23] MEDS ORDERED: ULTRAM50 MG PO (13:45)
[2019-10-23 15:03] VITALS: BP 164/82
== END 2019-10-23 15:00 | disposition home or self-care (01) ==
LOC: D.ER 13:34
DX: S60.222A Contusion of left hand, initial encounter (principal); S29.012A Strain of muscle and tendon of back wall of thorax, initial encounter; J44.9 Chronic obstructive pulmonary disease, unspecified; G89.29 Other chronic pain; M79.642 Pain in left hand; W19.XXXA Unspecified fall, initial encounter; Y93.9 Activity, unspecified; Y92.9 Unspecified place or not applicable

== ENCOUNTER → 2019-10-26 12:54 | Outpatient (CLI) | payer MEDICAID ==
[2019-10-23 13:38] VITALS: BMI 40.1
[~2019-10-26 12:54] MED LIST changes: +ULTRAM50 MG PO
== END | disposition home or self-care (01) ==
LOC: D.RT 12:54
PROVIDERS: ATTEND Internal Medicine Pulmonary Disease
DX: J44.9 Chronic obstructive pulmonary disease, unspecified (principal)

== ENCOUNTER → 2019-11-12 15:05 | Outpatient (CLI) | payer MEDICAID ==
[2019-10-23 13:38] VITALS: BMI 40.1
== END | disposition home or self-care (01) ==
LOC: D.US 15:05
DX: R60.0 Localized edema (principal)